=== PATIENT | female | born 1935 | race African-American/Black ===

== ENCOUNTER 2017-01-08 08:43 | Observation (INO) | payer MEDICARE ==
[2017-01-08] MEDS ORDERED: DEXTROSE 50%-WATER 50 ML DISP.SYRIN ONE (09:01)
--- NOTE | 2017-01-08 09:56 | CON.CARD ---
Consult Consult Specialty:: Cardiology - History of Present Illness Chief Complaint: confusion /falls History of Present Illness: 81-year-old female presents to the ED with her daughters for evaluation of a hypoglycemic episode. As per daughter she had went to check on her mother in the morning who appeared weak and not responding to basic verbal conversation so daughter decided to check her fingerstick which was noted to be 25. When EMS arrived patient received dextrose and immediately became more responsive and less lethargic. Daughter states similar episode approximately 9 months ago unknown etiology without adjustment of her medication. Patient with history of hypertension, diabetes, dyslipidemia, and GI bleed. Patient denies fever, chills , cough, recent change in weight, recent change in medications, recent illness, abdominal pain, diarrhea, dysuria, or headache. PMH ASHD s/p RAFITA Xience mLAD and dLAD 2010 dr. Monterroso CHF systolic 2010 DM 1989 EF 69% on ECHO October 2011 HTN Hyperlipidemia Negative MIBI stress test 2013, 2015 SLAT TWISTER/Stent of the right mid superficial femoral artery February 25, 2014 Dr. Monterroso - History Source History Provided By: Patient, Family Member - Alcohol/Substance Use Hx Alcohol Use: No - Smoking History Smoking history: Never smoked Have you smoked in the past 12 months: No Aproximately how many cigarettes per day: 0 Home Medications - Allergies Allergies/Adverse Reactions: Allergies Allergy/AdvReac Type Severity Reaction Status Date / Time No Known Allergies Allergy Verified 01/08/17 09:06 - Home Medications Home Medications: Ambulatory Orders Amlodipine Besylate [Norvasc -] 5 mg PO DAILY 04/29/13 Aspirin [ASA -] 81 mg PO DAILY 04/29/13 Clopidogrel Bisulfate [Plavix -] 75 mg PO DAILY 04/29/13 Enalapril Maleate [Vasotec -] 20 mg PO DAILY 04/29/13 Hydrochlorothiazide [Hctz -] 25 mg PO DAILY 04/29/13 Metoprolol Tartrate [Lopressor -] 50 mg PO BID 04/29/13 Simvastatin [Zocor -] 40 mg PO DAILY 04/29/13 Iron Polysaccharides [Niferex-150 -] 150 mg PO DAILY 06/05/16 Omeprazole 40 mg PO DAILY 06/05/16 Glimepiride [Amaryl -] 4 mg PO DAILY@0700 01/08/17 Insulin NPH Hum/Reg Insulin Hm [Humulin 70-30 Vial] 20 unit SQ DAILY 01/08/17 Review of Systems - Review of Systems Constitutional: reports: No Symptoms Eyes: reports: No Symptoms HENT: reports: No Symptoms Neck: reports: No Symptoms Cardiovascular: reports: No Symptoms Gastrointestinal: reports: No Symptoms Genitourinary: reports: No Symptoms Breasts: reports: No Symptoms Reported Musculoskeletal: reports: No Symptoms Integumentary: reports: No Symptoms Neurological: reports: Confusion Endocrine: reports: No Symptoms Hematology/Lymphatic: reports: No Symptoms Psychiatric: reports: No Symptoms Vital Signs: Vital Signs Temperature 98.4 F 01/08/17 08:43 Pulse Rate 91 H 01/08/17 08:43 Respiratory Rate 18 01/08/17 08:43 Blood Pressure 155/63 01/08/17 08:43 O2 Sat by Pulse Oximetry (%) 97 01/08/17 08:43 Constitutional: Yes: Well Nourished, No Distress, Calm Eyes: Yes: WNL, Conjunctiva Clear, EOM Intact HENT: Yes: WNL, Atraumatic, Normocephalic Neck: Yes: WNL, Supple, Trachea Midline Respiratory: Yes: WNL, Regular, CTA Bilaterally Gastrointestinal: Yes: WNL, Normal Bowel Sounds Renal/: Yes: WNL Cardiovascular: Yes: WNL, Regular Rate and Rhythm Musculoskeletal: Yes: WNL Extremities: Yes: WNL Integumentary: Yes: WNL Neurological: Yes: WNL, Alert, Oriented ...Motor Strength: WNL Psychiatric: Yes: WNL, Alert, Oriented - Other Data Labs, Other Data: Laboratory Tests 01/08/17 01/08/17 01/08/17 09:44 09:45 09:45 WBC 5.6 D RBC 3.75 Hgb 10.5 L Hct 31.6 L MCV 84.1 MCHC 33.2 RDW 16.0 H Plt Count 166 MPV 8.0 D Neutrophils % 68.4 Lymphocytes % 21.9 D Monocytes % 9.5 Eosinophils % 0.0 Basophils % 0.2 Sodium 140 Potassium 3.4 L Chloride 102 Carbon Dioxide 26 Anion Gap 12 BUN 37 H Creatinine 1.6 H Creat Clearance w eGFR 30.86 POC Glucometer 131.59045 Random Glucose 126 H D Calcium 9.3 Magnesium 2.0 Total Bilirubin 0.5 D AST 31 D ALT 15 Alkaline Phosphatase 78 Creatine Kinase 626 H D CK-MB (CK-2) 8.418 H Troponin I 0.02 Total Protein 7.1 Albumin 3.7 Urine Color Urine Appearance Urine pH Urine Protein Urine Glucose (UA) Urine Ketones Urine Blood Urine Nitrite Urine Bilirubin Urine Urobilinogen Ur Leukocyte Esterase Urine RBC Urine WBC Ur Epithelial Cells Hyaline Casts Urine Mucus 01/08/17 10:40 WBC RBC Hgb Hct MCV MCHC RDW Plt Count MPV Neutrophils % Lymphocytes % Monocytes % Eosinophils % Basophils % Sodium Potassium Chloride Carbon Dioxide Anion Gap BUN Creatinine Creat Clearance w eGFR POC Glucometer Random Glucose Calcium Magnesium Total Bilirubin AST ALT Alkaline Phosphatase Creatine Kinase CK-MB (CK-2) Troponin I Total Protein Albumin Urine Color Ltyellow Urine Appearance Clear Urine pH 5.0 Urine Protein Negative Urine Glucose (UA) Negative Urine Ketones Negative Urine Blood Negative Urine Nitrite Negative Urine Bilirubin Negative Urine Urobilinogen Negative Ur Leukocyte Esterase Trace H D Urine RBC 1 Urine WBC 3 Ur Epithelial Cells Moderate Hyaline Casts 1 Urine Mucus Rare Imaging - Results Chest X-ray: Image Reviewed (no i/e) EKG: Image Reviewed (sr apc) Assessment/Plan ASHD PAD DM HTN HLD hypoglycemia s/p fall from bed elevated ck ce neg plan ivf r/o infection cardiac knowles stable will f/u
[2017-01-08 10:01] LABS: BASOPHIL 0.2 % (0-2.0); MCH 27.9 pg (25.7-33.7); MCHC 33.2 g/dl (32.0-36.0); MEAN CELL VOLUME 84.1 fl (80-96); NEUTROPHILS 68.4 % (42.8-82.8); PLATELET COUNT 166 K/MM3 (134-434); WHITE BLOOD COUNT 5.6 K/mm3 (4.0-10.0)
[2017-01-08 10:21] LABS: ALBUMIN 3.7 g/dl (3.4-5.0); BILIRUBIN,TOTAL 0.5 mg/dL (0.2-1.0); CALCIUM 9.3 mg/dL (8.5-10.1); COCKROFT - GAULT 29.1125; CREATININE 1.6 mg/dL (0.55-1.02); TOT PROT 7.1 g/dl (6.4-8.2)
[2017-01-08 10:24] LABS: TROPONIN I 0.02 ng/ml (0.00-0.05)
--- NOTE | 2017-01-08 10:24 | PDOC ---
History of Present Illness - General Chief Complaint: Blood Sugar Problem Stated Complaint: LOW BLOOD SUGAR Time Seen by Provider: 01/08/17 09:13 History Source: Patient Exam Limitations: No Limitations - History of Present Illness Initial Comments: 01/08/17 10:18 81-year-old female presents to the ED with her daughters for evaluation of a hypoglycemic episode. As per daughter she had went to check on her mother in the morning who appeared weak and not responding to basic verbal conversation so daughter decided to check her fingerstick which was noted to be 25. When EMS arrived patient received dextrose and immediately became more responsive and less lethargic. Daughter states similar episode approximately 9 months ago unknown etiology without adjustment of her medication. Patient with history of hypertension, diabetes, dyslipidemia, and GI bleed. Patient denies fever, chills , cough, recent change in weight, recent change in medications, recent illness, abdominal pain, diarrhea, dysuria, or headache. 01/08/17 11:03 Timing/Duration: 1 hour Severity: moderate Associated Symptoms: reports: weakness Past History - Travel Traveled outside of the country in the last 30 days: No Close contact w/someone who was outside of country & ill: No - Past Medical History Allergies/Adverse Reactions: Allergies Allergy/AdvReac Type Severity Reaction Status Date / Time No Known Allergies Allergy Verified 01/08/17 09:06 Home Medications: Ambulatory Orders Amlodipine Besylate [Norvasc -] 5 mg PO DAILY 04/29/13 Aspirin [ASA -] 81 mg PO DAILY 04/29/13 Clopidogrel Bisulfate [Plavix -] 75 mg PO DAILY 04/29/13 Enalapril Maleate [Vasotec -] 20 mg PO DAILY 04/29/13 Hydrochlorothiazide [Hctz -] 25 mg PO DAILY 04/29/13 Metoprolol Tartrate [Lopressor -] 50 mg PO BID 04/29/13 Simvastatin [Zocor -] 40 mg PO DAILY 04/29/13 Iron Polysaccharides [Niferex-150 -] 150 mg PO DAILY 06/05/16 Omeprazole 40 mg PO DAILY 06/05/16 Glimepiride [Amaryl -] 4 mg PO DAILY@0700 01/08/17 Insulin NPH Hum/Reg Insulin Hm [Humulin 70-30 Vial] 20 unit SQ DAILY 01/08/17 Anemia: Yes Cardiac Disorders: Yes (CAD) Diabetes: Yes GI Disorders: Yes (GERD) HTN: Yes Hypercholesterolemia: Yes Liver Disease: Yes (HEPATIC CYST, COLON POLYP) - Surgical History Cardiac Surgery: Yes (2 STENT(1 TO HEART, 1 TO RT LEG)) - Psycho/Social/Smoking Cessation Hx Anxiety: No Suicidal Ideation: No Smoking Status: No Smoking History: Never smoked Have you smoked in the past 12 months: No Number of Cigarettes Smoked Daily: 0 Information on smoking cessation initiated: No Hx Alcohol Use: No Drug/Substance Use Hx: No Substance Use Type: None Patient Lives Alone: No Lives with/in: daughter Review of Systems - Review of Systems Able to Perform ROS?: Yes Constitutional: Yes: Weakness HEENTM: No: Symptoms Reported Respiratory: No: Symptoms reported Cardiac (ROS): No: Symptoms Reported ABD/GI: No: Symptoms Reported : No: Symptoms Reported Musculoskeletal: Yes: Muscle Weakness Integumentary: No: Symptoms Reported Neurological: No: Symptoms reported *Physical Exam - Vital Signs Last Vital Signs Temp Pulse Resp BP Pulse Ox 98.4 F 91 H 18 155/63 97 01/08/17 08:43 01/08/17 08:43 01/08/17 08:43 01/08/17 08:43 01/08/17 08:43 - Physical Exam General Appearance: Yes: Nourished, Appropriately Dressed. No: Apparent Distress HEENT: positive: EOMI, SABIHA, TMs Normal, Pharynx Normal. negative: Pale Conjunctivae Neck: positive: Supple Respiratory/Chest: positive: Lungs Clear, Normal Breath Sounds. negative: Respiratory Distress, Accessory Muscle Use Cardiovascular: positive: Regular Rhythm, Regular Rate. negative: Murmur Extremity: positive: Normal Capillary Refill Integumentary: positive: Normal Color, Warm, Moist Neurologic: positive: Motor Strength 5/5 (ambulatory) Heart Score/ECG Review - History History: Slightly suspicious - Electrocardiogram EKG: Normal - Age Age: >/= 65 - Risk Factors Risk Factors Heart Score: Yes Hx Hypercholesterolemia, Yes Hx Hypertension, Yes Hx Diabetes Based on the list above the patient has:: >/=3 risk factors or Hx atherosclerotic disease - Troponin Troponin: </= normal limit - Score Heart Score - Total: 4 - ECG Intrepretation Rhythm: PAC(s) (rate 81. With left bundle branch block. Unchanged from previous noted 04/2013) ED Treatment Course - LABORATORY CBC & Chemistry Diagram: 01/08/17 09:45 01/08/17 09:45 - ADDITIONAL ORDERS Additional order review: Laboratory Results 01/08/17 09:44 POC Glucometer 131.43072 01/08/17 01/08/17 09:45 09:44 RBC 3.75 MCV 84.1 MCHC 33.2 RDW 16.0 H MPV 8.0 D Neutrophils % 68.4 Lymphocytes % 21.9 D Monocytes % 9.5 Eosinophils % 0.0 Basophils % 0.2 POC Glucometer 131.56116 - RADIOLOGY Radiology Studies Ordered: Category Date Time Status HEAD CT WITHOUT CONTRAST [CT] Stat CT Scan 01/08/17 09:29 Ordered CHEST X-RAY PORTABLE* [RAD] Stat Radiology 01/08/17 09:14 Completed Medical Decision Making - Medical Decision Making 01/08/17 10:01 Patient with low BGM this morning and when EMS arrived they had given her dextrose which brought her glucose to 182. differential diagnosis include infection, electrolyte imbalance, ACS, and less likely intracranial pathology. Patient ordered for cardiac workup, repeat BGM, head CT, and urinalysis with urine culture. 01/08/17 11:20 Laboratory Tests 10/19/16 01/08/17 01/08/17 14:55 09:45 09:45 WBC 5.6 D Hgb 10.5 L Hct 31.6 L Plt Count 166 Neutrophils % 68.4 Sodium 140 Potassium 3.4 L Chloride 102 Carbon Dioxide 26 Anion Gap 12 BUN 37 H Creatinine 1.6 H D 1.6 H Random Glucose 126 H D Calcium 9.3 Magnesium 2.0 AST 31 D ALT 15 Creatine Kinase 626 H D CK-MB (CK-2) 8.418 H Urine Ketones Ur Leukocyte Esterase Urine WBC 01/08/17 10:40 WBC Hgb Hct Plt Count Neutrophils % Sodium Potassium Chloride Carbon Dioxide Anion Gap BUN Creatinine Random Glucose Calcium Magnesium AST ALT Creatine Kinase CK-MB (CK-2) Urine Ketones Negative Ur Leukocyte Esterase Trace H D Urine WBC [address] negative for acute findings except for a meningioma. Patient ordered for normal saline IV secondary to elevated CK . chest x-ray negative for acute findings. 01/08/17 13:[address] Moss who states will consult on the patient if patient is to be admitted. He also does not believe this is cardiac related as patient has no change in EKG with the chest pain or elevated troponin. Case has now been discussed with hospitalist POLO Saeed and will be admitted to [facility] observation. Patient and family made aware and agrees with plan. Patient will receive a repeat BGM after completion of normal saline fluids. *DC/Admit/Observation/Transfer Diagnosis at time of Disposition: Hypoglycemia, Elevated creatine kinase level - Discharge Dispostion Admit: Yes
[2017-01-08 10:51] LABS: URINE APPEARANCE CLEAR; URINE BILIRUBIN NEGATIVE (NEGATIVE); URINE BLOOD NEGATIVE (NEGATIVE); URINE COLOR LTYELLOW; URINE GLUCOSE (UA) NEGATIVE (NEGATIVE); URINE KETONE NEGATIVE (NEGATIVE); URINE LEUK ESTERASE TRACE (NEGATIVE); URINE NITRITE NEGATIVE (NEGATIVE); URINE PROTEIN NEGATIVE (NEGATIVE); URINE UROBILINOGEN NEGATIVE E.U./dl (0.2-1.0)
[2017-01-08 10:56] LABS: URINE HYALINE CAST 1 /lpf; URINE MUCUS RARE; URINE RBC 1 /hpf (0-3); URINE WBC 3 /hpf (3-5)
--- NOTE | 2017-01-08 10:57 | EKG ---
Test Reason : Blood Pressure : / mmHG Vent. Rate : 081 BPM Atrial Rate : 081 BPM P-R Int : 208 ms QRS Dur : 110 ms QT Int : 390 ms P-R-T Axes : 080 -22 013 degrees QTc Int : 453 ms SINUS RHYTHM WITH PREMATURE ATRIAL COMPLEXES INCOMPLETE LEFT BUNDLE BRANCH BLOCK BORDERLINE ECG WHEN COMPARED WITH ECG OF 29-APR-2013 21:22, PREMATURE ATRIAL COMPLEXES ARE NOW PRESENT T WAVE VARIATION Confirmed by CASEY GOLDBERG, BRADLEY ([id number]) on 01/08/2017 10:57:23 AM Referred By: Confirmed By:BRADLEY PEÑA MD
--- NOTE | 2017-01-08 11:17 | PDOC ---
*Physical Exam - Vital Signs Last Vital Signs Temp Pulse Resp BP Pulse Ox 98.4 F 91 H 18 155/63 97 01/08/17 08:43 01/08/17 08:43 01/08/17 08:43 01/08/17 08:43 01/08/17 08:43 ED Treatment Course - LABORATORY CBC & Chemistry Diagram: 01/08/17 09:45 01/08/17 09:45 - ADDITIONAL ORDERS Additional order review: Laboratory Results 01/08/17 01/08/17 01/08/17 10:40 09:45 09:44 Sodium 140 Potassium 3.4 L Chloride 102 Carbon Dioxide 26 Anion Gap 12 BUN 37 H Creatinine 1.6 H Creat Clearance w eGFR 30.86 POC Glucometer 131.24382 Random Glucose 126 H D Calcium 9.3 Magnesium 2.0 Total Bilirubin 0.5 D AST 31 D ALT 15 Alkaline Phosphatase 78 Creatine Kinase 626 H D CK-MB (CK-2) 8.418 H Troponin I 0.02 Total Protein 7.1 Albumin 3.7 Urine Color Ltyellow Urine Appearance Clear Urine pH 5.0 Urine Protein Negative Urine Glucose (UA) Negative Urine Ketones Negative Urine Blood Negative Urine Nitrite Negative Urine Bilirubin Negative Urine Urobilinogen Negative Ur Leukocyte Esterase Trace H D Urine RBC 1 Urine WBC 3 Ur Epithelial Cells Moderate Hyaline Casts 1 Urine Mucus Rare 01/08/17 01/08/17 09:45 09:44 RBC 3.75 MCV 84.1 MCHC 33.2 RDW 16.0 H MPV 8.0 D Neutrophils % 68.4 Lymphocytes % 21.9 D Monocytes % 9.5 Eosinophils % 0.0 Basophils % 0.2 POC Glucometer 131.41739 Medical Decision Making - Medical Decision Making 01/08/17 11:16 Patient seen and evaluated with the nurse practitioner. I agree with the overall evaluation, assessment, and management with the following summary of visit: 81-year-old female insulin-dependent diabetic presents with altered mental status in the setting of hypoglycemic episode. Symptoms improved after given dextrose prior to arrival. Metabolic/infectious workup, close monitoring, dispo accordingly
[2017-01-08] MEDS ORDERED: SODIUM CHLORIDE 1,000 ML IV STA (11:20)
--- NOTE | 2017-01-08 14:05 | HP ---
CHIEF COMPLAINT: brief episode of AMS PCP: Christin Morales [phone] HISTORY OF PRESENT ILLNESS: This is an 85yo woman with PMH HTN, IDDM, CAD with stent x2, HLD and GERD who presents with brief episode of staring into the distance while laying in bed. She was not responding to family during this time. FSBG noted to be 33mg/dl by family who activated EMS. The patient returned to baseline mental status s/p D50W infusing by EMS. She was changed from Januvia to Amaryl due to cost of Januvia during November on her last visit with PMD. ER course was notable for: (1) elevated CK-626 (2) Random glucose- 126 (3) AZRA Recent Travel: denies PAST MEDICAL HISTORY: HTN, IDDM, CAD with stent x2, HLD, GERD PAST SURGICAL HISTORY: denies Social History: Smoking: denies Alcohol: denies Drugs: denies Family History: Allergies No Known Allergies Allergy (Verified 01/08/17 09:06) HOME MEDICATIONS: Home Medications 3 Medication Instructions Recorded Amlodipine Besylate [Norvasc -] 5 mg PO DAILY 04/29/13 Aspirin [ASA -] 81 mg PO DAILY 04/29/13 Clopidogrel Bisulfate [Plavix -] 75 mg PO DAILY 04/29/13 Enalapril Maleate [Vasotec -] 20 mg PO DAILY 04/29/13 Hydrochlorothiazide [Hctz -] 25 mg PO DAILY 04/29/13 Metoprolol Tartrate [Lopressor -] 50 mg PO BID 04/29/13 Simvastatin [Zocor -] 40 mg PO DAILY 04/29/13 Iron Polysaccharides [Niferex-150 150 mg PO DAILY 06/05/16 -] Omeprazole 40 mg PO DAILY 06/05/16 Glimepiride [Amaryl -] 4 mg PO DAILY@0700 01/08/17 Insulin NPH Hum/Reg Insulin Hm 20 unit SQ DAILY 01/08/17 [Humulin 70-30 Vial] REVIEW OF SYSTEMS CONSTITUTIONAL: Present: generalized weakness Absent: fever, chills, diaphoresis, malaise, loss of appetite, weight change HEENT: Absent: rhinorrhea, nasal congestion, throat pain, throat swelling, difficulty swallowing, mouth swelling, ear pain, eye pain, visual changes CARDIOVASCULAR: Absent: chest pain, syncope, palpitations, irregular heart rate, lightheadedness , peripheral edema RESPIRATORY: Absent: cough, shortness of breath, dyspnea with exertion, orthopnea, wheezing, stridor, hemoptysis GASTROINTESTINAL: Absent: abdominal pain, abdominal distension, nausea, vomiting, diarrhea, constipation, melena, hematochezia GENITOURINARY: Absent: dysuria, frequency, urgency, hesitancy, hematuria, flank pain, genital pain MUSCULOSKELETAL: Absent: myalgia, arthralgia, joint swelling, back pain, neck pain SKIN: Absent: rash, itching, pallor HEMATOLOGIC/IMMUNOLOGIC: Absent: easy bleeding, easy bruising, lymphadenopathy, frequent infections ENDOCRINE: Absent: unexplained weight gain, unexplained weight loss, heat intolerance, cold intolerance NEUROLOGIC: Absent: headache, focal weakness or paresthesias, dizziness, unsteady gait, seizure, mental status changes, bladder or bowel incontinence PSYCHIATRIC: Absent: anxiety, depression, suicidal or homicidal ideation, hallucinations. PHYSICAL EXAMINATION Vital Signs - 24 hr 3 01/08/17 08:43 Temperature 98.4 F Pulse Rate 91 H Respiratory 18 Rate Blood Pressure 155/63 O2 Sat by Pulse 97 Oximetry (%) GENERAL: Awake, alert, and fully oriented, in no acute distress. HEAD: Normal with no signs of trauma. EYES: Pupils equal, round and reactive to light, extraocular movements intact, sclera anicteric, conjunctiva clear. No lid lag. EARS, NOSE, THROAT: Ears normal, nares patent, oropharynx clear without exudates. Moist mucous membranes. NECK: Normal range of motion, supple without lymphadenopathy, JVD, or masses. LUNGS: Breath sounds equal, clear to auscultation bilaterally. No wheezes, and no crackles. No accessory muscle use. HEART: Regular rate and rhythm, normal S1 and S2 without murmur, rub or gallop. ABDOMEN: Soft, nontender, not distended, normoactive bowel sounds, no guarding, no rebound, no masses. No hepatomegaly or splenomegaly. MUSCULOSKELETAL: Normal range of motion at all joints. No bony deformities or tenderness. No CVA tenderness. UPPER EXTREMITIES: 2+ pulses, warm, well-perfused. No cyanosis. No clubbing. No peripheral edema. LOWER EXTREMITIES: 2+ pulses, warm, well-perfused. No calf tenderness. No peripheral edema. NEUROLOGICAL: Cranial nerves II-XII intact. Normal speech. Normal gait. Deliberate responses to questioning. PSYCHIATRIC: Cooperative. Good eye contact. Appropriate mood and affect. SKIN: Warm, dry, normal turgor, no rashes or lesions noted, normal capillary refill. Laboratory Results - last 24 hr 3 01/08/17 01/08/17 01/08/17 09:44 09:45 09:45 WBC 5.6 D RBC 3.75 Hgb 10.5 L Hct 31.6 L MCV 84.1 MCHC 33.2 RDW 16.0 H Plt Count 166 MPV 8.0 D Neutrophils % 68.4 Lymphocytes % 21.9 D Monocytes % 9.5 Eosinophils % 0.0 Basophils % 0.2 Sodium 140 Potassium 3.4 L Chloride 102 Carbon Dioxide 26 Anion Gap 12 BUN 37 H Creatinine 1.6 H Creat Clearance w eGFR 30.86 POC Glucometer 131.99871 Random Glucose 126 H D Calcium 9.3 Magnesium 2.0 Total Bilirubin 0.5 D AST 31 D ALT 15 Alkaline Phosphatase 78 Creatine Kinase 626 H D CK-MB (CK-2) 8.418 H Troponin I 0.02 Total Protein 7.1 Albumin 3.7 Urine Color Urine Appearance Urine pH Urine Protein Urine Glucose (UA) Urine Ketones Urine Blood Urine Nitrite Urine Bilirubin Urine Urobilinogen Ur Leukocyte Esterase Urine RBC Urine WBC Ur Epithelial Cells Hyaline Casts Urine Mucus 3 01/08/17 10:40 WBC RBC Hgb Hct MCV MCHC RDW Plt Count MPV Neutrophils % Lymphocytes % Monocytes % Eosinophils % Basophils % Sodium Potassium Chloride Carbon Dioxide Anion Gap BUN Creatinine Creat Clearance w eGFR POC Glucometer Random Glucose Calcium Magnesium Total Bilirubin AST ALT Alkaline Phosphatase Creatine Kinase CK-MB (CK-2) Troponin I Total Protein Albumin Urine Color Ltyellow Urine Appearance Clear Urine pH 5.0 Urine Protein Negative Urine Glucose (UA) Negative Urine Ketones Negative Urine Blood Negative Urine Nitrite Negative Urine Bilirubin Negative Urine Urobilinogen Negative Ur Leukocyte Esterase Trace H D Urine RBC 1 Urine WBC 3 Ur Epithelial Cells Moderate Hyaline Casts [address] head as read by Dr. Hernandez: 7mm calcified meningioma in right frontal lobe. Otherwise normal scan. ASSESSMENT/PLAN: A: Brief episode of AMS in setting of hypoglycemia. AMS resolved with administration of D50W by EMS. AMS less likely from meningioma given absence of focal deficits. Less likely UTI as WBC wnl and afebrile. P: 1. AMS- hypoglycemia vs UTI vs meningioma - FSBG qACHS - hold glimeperide 4mg and 70/30 units - ISS - urine cx - hold abx as WBC wnl and afebrile 2. AZRA - NS@75 with low volume boluses PRN - trend Cr and CPK - hold ACEi 3. DM - FSBG qACHS - hold glimeperide 4mg and 70/30 20 units - ISS - A1c 4. HTN - hold ACEi given AZRA - Home metoprolol 50mg BID - Home Norvasc 5mg daily increase to 10mg PRN - Home HCTZ 25mg daily 5. CAD - Home ASA 81mg - Home Plavix 75mg 6. Chronic anemia - Well controlled - home Fe polysaccharides 150mg 7. GERD - Home omeprazole 8. F/E/N - NS@75 - Low Na+ diabetic diet - replete PRN 9. PPX - home PPI - OOB Dispo- requires observation of acute medical condition Code Status: FULL CODE Visit type - Emergency Visit Emergency Visit: Yes ED Registration Date: 01/08/17 Care time: The patient presented to the Emergency Department on the above date and was hospitalized for further evaluation of their emergent condition. - New Patient This patient is new to me today: Yes Date on this admission: 01/09/17 - Critical Care Critical Care patient: No
[2017-01-08] MEDS: INSULIN SLIDING SCALE (NOVOLOG) 1 VIAL SQ SCH ×2 (18:57→22:43)
[2017-01-08] MEDS ORDERED: INSULIN (NOVOLOG) ASPART 100 UNITS/ML 10ML VIAL ONE (20:04)
[2017-01-08] MEDS: METOPROLOL TARTRATE 50 MG TABLET (FP) PO SCH (22:43)
[2017-01-08 23:27] VITALS: BMI 32.7
[2017-01-09] MEDS: INSULIN SLIDING SCALE (NOVOLOG) 1 VIAL SQ SCH ×3 (06:24→16:31)
[2017-01-09 07:54] LABS: BASOPHIL 0.5 % (0-2.0); MCHC 33.4 g/dl (32.0-36.0); MEAN CELL VOLUME 83.8 fl (80-96); MEAN PLT VOLUME 8.4 fl (7.5-11.1); NEUTROPHILS 52.1 % (42.8-82.8); PLATELET COUNT 160 K/MM3 (134-434); RDW 16.1 % (11.6-15.6); WHITE BLOOD COUNT 4.4 K/mm3 (4.0-10.0)
[2017-01-09 08:52] LABS: CALCIUM 9.3 mg/dL (8.5-10.1); COCKROFT - GAULT 50.507; CREATININE 1.1 mg/dL (0.55-1.02)
[2017-01-09] MEDS ORDERED: HYDROCHLOROTHIAZIDE 25 MG TABLET (FP) PO SCH (10:00)
[2017-01-09] MEDS ORDERED: CLOPIDOGREL BISULFATE 75 MG TABLET (FP) PO SCH (10:00)
[2017-01-09] MEDS ORDERED: PANTOPRAZOLE 40 MG TABLET (FP) PO SCH (10:00)
[2017-01-09] MEDS ORDERED: ATORVASTATIN CA 20 MG TABLET (FP) PO SCH (10:00)
[2017-01-09] MEDS ORDERED: ASPIRIN 81 MG CHEWABLE TABLETS PO SCH (10:00)
[2017-01-09] MEDS ORDERED: amLODIPine BESYLATE 5 MG TABLET (FP) PO SCH (10:00)
[2017-01-09] MEDS ORDERED: IRON POLYSACCHARIDES 150 MG CAPSULE PO SCH (10:00)
--- NOTE | 2017-01-09 11:04 | PN ---
Progress Note, Physician History of Present Illness: 81-year-old female presents to the ED with her daughters for evaluation of a hypoglycemic episode. As per daughter she had went to check on her mother in the morning who appeared weak and not responding to basic verbal conversation so daughter decided to check her fingerstick which was noted to be 25. When EMS arrived patient received dextrose and immediately became more responsive and less lethargic. Daughter states similar episode approximately 9 months ago unknown etiology without adjustment of her medication. Patient with history of hypertension, diabetes, dyslipidemia, and GI bleed. Patient denies fever, chills , cough, recent change in weight, recent change in medications, recent illness, abdominal pain, diarrhea, dysuria, or headache. PMH ASHD s/p RAFITA Xience mLAD and dLAD 2010 dr. Monterroso CHF systolic 2010 DM 1989 EF 69% on ECHO October 2011 HTN Hyperlipidemia Negative MIBI stress test 2013, 2015 NURSE CHEMICAL DEPENDENCY/Stent of the right mid superficial femoral artery February 25, 2014 Dr. Monterroso - Current Medication List Current Medications: Active Medications Amlodipine Besylate (Norvasc -) 5 mg PO DAILY [facility] Aspirin (Asa -) 81 mg PO DAILY [facility] Atorvastatin Calcium (Lipitor -) 20 mg PO HS [facility] Clopidogrel Bisulfate (Plavix -) 75 mg PO DAILY [facility] Hydrochlorothiazide (Hctz -) 25 mg PO DAILY [facility] Insulin Aspart (Novolog Vial Sliding Scale -) 1 vial SQ ACHS [facility] PRN Reason: Protocol Last Admin: 01/09/17 06:24 Dose: Not Given Metoprolol Tartrate (Lopressor -) 50 mg PO BID [facility] Last Admin: 01/08/17 22:43 Dose: 50 mg Pantoprazole Sodium (Protonix -) 40 mg PO DAILY [facility] Polysaccharide Iron Complex (Niferex-150 -) 150 mg PO DAILY [facility] - Objective Vital Signs: Vital Signs Temperature 98.3 F 01/09/17 06:00 Pulse Rate 61 01/09/17 06:00 Respiratory Rate 20 01/09/17 06:00 Blood Pressure 119/54 01/09/17 06:00 O2 Sat by Pulse Oximetry (%) 98 01/08/17 22:00 Eyes: Yes: WNL, Conjunctiva Clear, EOM Intact HENT: Yes: WNL, Atraumatic, Normocephalic Neck: Yes: WNL, Supple, Trachea Midline Cardiovascular: Yes: WNL, Regular Rate and Rhythm Respiratory: Yes: WNL, Regular, CTA Bilaterally Gastrointestinal: Yes: WNL, Normal Bowel Sounds Genitourinary: Yes: WNL Musculoskeletal: Yes: WNL Extremities: Yes: WNL Edema: No Integumentary: Yes: WNL Neurological: Yes: WNL, Alert, Oriented ...Motor Strength: WNL Psychiatric: Yes: WNL Labs: CBC, BMP 01/09/17 06:35 01/09/17 06:35 Assessment/Plan ASHD PAD DM HTN HLD hypoglycemia s/p fall from bed elevated ck ce neg plan ivf r/o infection cardiac knowles stable will f/u
[2017-01-09] MEDS: METOPROLOL TARTRATE 50 MG TABLET (FP) PO SCH (11:09)
[2017-01-09 13:55] VITALS: BP 136/64; PULSE 74; TEMP 97.8
--- NOTE | 2017-01-09 16:26 | PN ---
Teaching Attending Note Name of Resident: Jc Loya ATTENDING PHYSICIAN STATEMENT I saw and evaluated the patient. I reviewed the resident's note and discussed the case with the resident. I agree with the resident's findings and plan as documented. SUBJECTIVE:" my legs are giving out" denies other complaints has full recollection of yesterdays events OBJECTIVE: Vital Signs Temperature 97.8 F 01/09/17 13:54 Pulse Rate 74 01/09/17 13:54 Respiratory Rate 18 01/09/17 13:54 Blood Pressure 136/64 01/09/17 13:54 O2 Sat by Pulse Oximetry (%) 99 01/09/17 10:00 CBC, BMP 01/09/17 06:35 Eyes: Yes: WNL, Conjunctiva Clear, EOM Intact HENT: Yes: WNL, Atraumatic, Normocephalic Neck: Yes: WNL, Supple, Trachea Midline Cardiovascular: Yes: WNL, Regular Rate and Rhythm Respiratory: Yes: WNL, Regular, CTA Bilaterally Gastrointestinal: Yes: WNL, Normal Bowel Sounds Genitourinary: Yes: WNL Musculoskeletal: Yes: WNL Extremities: Yes: WNL Edema: No 01/09/17 06:35 BGM Schedule Start: 01/08/17 14:09 Freq: ACHS Status: Active Activity Type Activity Date Activity User Co-Sign Detail Recorded Client Recorded Date Recorded By Document 01/08/17 18:30 [email or web address] [email or web address] 01/08/17 18:55 JLEARO Document 01/08/17 22:00 KISHAMBLU [id number] 01/08/17 23:45 JEMBLU Document 01/09/17 06:36 JEMBLU [id number] 01/09/17 06:36 JEMBLU Document 01/09/17 11:00 YTUCJA [email or web address] 01/09/17 11:52 YTUCJA BG 128 ASSESSMENT AND PLAN: Hypoglycemia - resolved - likely secondary to Insulin and non compliance with BG measurement. Had decreased PO intake last 2 days . * counselled patient and her daughter on the phone * advised to monitor BG at least twice a day * discontinue oral hypoglycemics * follow up with PMD within next 5-6 days Fall - no syncope ,positive history of b/l knee arthritis, evaluated by cardiology per EDP request and appers to be stable from cardiac perspective * outpatient follow up with PMD and possible referral to PT D/C home
--- NOTE | 2017-01-09 16:31 | DS ---
Physical Exam: SUBJECTIVE: Patient seen and examined at bedside. No overnight events. No new complaints. Tolerating diet. Denies CP,JEAN, SOB, palpitations, Abd. pain, N/V. OBJECTIVE: Vital Signs Period Temp Pulse Resp BP Sys/Erazo Pulse Ox Last 24 Hr 97.7 F-98.4 F 61-87 16-20 119-137/54-70 98-100 PHYSICAL EXAM GENERAL: AAOx3, NAD HEAD: NC/AT EYES: PERRL, EOMI, sclera anicteric, conjunctiva clear. ENT: moist mucous membranes. NECK: supple, no jvd LUNGS: CTAB, no wheezing or rales HEART: RRR, no M/G/R ABDOMEN: Soft, NT, ND, BS(+) EXTREMITIES: 2+ pulses, warm, well-perfused, no edema. NEUROLOGICAL: Normal speech, gait not observed. LABS Laboratory Results - last 24 hr 01/08/17 01/08/17 01/09/17 18:46 22:40 06:20 WBC RBC Hgb Hct MCV MCHC RDW Plt Count MPV Neutrophils % Lymphocytes % Monocytes % Eosinophils % Basophils % Sodium Potassium Chloride Carbon Dioxide Anion Gap BUN Creatinine POC Glucometer 214.13110 255 78 Random Glucose Calcium 01/09/17 01/09/17 01/09/17 06:35 06:35 11:13 WBC 4.4 RBC 3.68 Hgb 10.3 L Hct 30.8 L MCV 83.8 MCHC 33.4 RDW 16.1 H Plt Count 160 MPV 8.4 Neutrophils % 52.1 D Lymphocytes % 35.6 D Monocytes % 11.8 H Eosinophils % 0.0 Basophils % 0.5 Sodium 140 Potassium 4.0 Chloride 103 Carbon Dioxide 26 Anion Gap 11 BUN 26 H D Creatinine 1.1 H D POC Glucometer 294 Random Glucose 97 D Calcium 9.3 01/09/17 14:42 WBC RBC Hgb Hct MCV MCHC RDW Plt Count MPV Neutrophils % Lymphocytes % Monocytes % Eosinophils % Basophils % Sodium Potassium Chloride Carbon Dioxide Anion Gap BUN Creatinine POC Glucometer 229 Random Glucose Calcium HOSPITAL COURSE: This is an 85yo woman with PMH HTN, IDDM, CAD with stent x2, HLD and GERD placed on observation due to hypoglycemic episode and AZRA. Oral meds held as well as insulin. Blood glucose monitoring was done ACHS. Infection was ruled out , UA(-), CXR (No acute path), afebrile and no leukocytosis. Her glucose improved and no further hypoglycemic episodes noted. Will make adjustments to her home meds by reducing insulin by 5 units and stopping glimeperide. She was found to be in AZRA that was corrected with volume resuscitation and held RADHA. She was seen by cardiology and stable from cardiac standpoint no acute process. SHe will resume home meds except for glimeperide and insulin reduced to 15 units daily. Her mental status has returned to baseline. Instructed to follow up with primary doctor in one week and keep a journal of daily sugars to bring with her. She is stable for discharge. Date of Admission:01/08/17 Date of Discharge: 01/09/17 Minutes to complete discharge: 32 Discharge Summary Reason For Visit: HYPOGLYCEMIA Current Active Problems AZRA (acute kidney injury) (Acute) Hypoglycemia (Acute) Chronic anemia (Chronic) DM type 2 (diabetes mellitus, type 2) (Chronic) GERD (gastroesophageal reflux disease) (Chronic) HTN (hypertension) (Chronic) Condition: Improved - Instructions Diet, Activity, Other Instructions: -Please follow up with your primary doctor in one week. -Your insulin has been lowered by 5 units. Please make this adjustment.You will now take 15 units daily. -Keep a detailed log of your sugars to bring with you to your appointment with PCP. -make sure you eat . -Continue diabetic/low salt diet -resume all other home meds as directed. -Increase activity as tolerated. Referrals: Tj Moarles [Primary Care Provider] - Disposition: HOME - Home Medications Comprehensive Discharge Medication List: Ambulatory Orders Amlodipine Besylate [Norvasc -] 5 mg PO DAILY 04/29/13 Aspirin [ASA -] 81 mg PO DAILY 04/29/13 Clopidogrel Bisulfate [Plavix -] 75 mg PO DAILY 04/29/13 Enalapril Maleate [Vasotec -] 20 mg PO DAILY 04/29/13 Hydrochlorothiazide [Hctz -] 25 mg PO DAILY 04/29/13 Metoprolol Tartrate [Lopressor -] 50 mg PO BID 04/29/13 Simvastatin [Zocor -] 40 mg PO DAILY 04/29/13 Iron Polysaccharides [Niferex-150 -] 150 mg PO DAILY 06/05/16 Omeprazole 40 mg PO DAILY 06/05/16 Glimepiride [Amaryl -] 4 mg PO DAILY@0700 01/08/17 Insulin NPH Hum/Reg Insulin Hm [Humulin 70-30 Vial] 15 unit SQ DAILY #0 vial This patient is new to me today: Yes Date on this admission: 01/09/17 Emergency Visit: Yes ED Registration Date: 01/08/17 Care time: The patient presented to the Emergency Department on the above date and was hospitalized for further evaluation of their emergent condition. Critical Care patient: No - Discharge Referral Referred to [facility] No
== END 2017-01-09 16:58 | disposition home or self-care (01) ==
LOC: JER 08:43 → JERBED 13:32 → J5S 19:10
PROVIDERS: ADMIT Internal Medicine; ATTEND Internal Medicine
PROC: 3E0337Z Introduction of Electrolytic and Water Balance Substance into Peripheral Vein, Percutaneous Approach (ICD-10-PCS; principal; 2017-01-08)
PROC: 3E013VG Introduction of Insulin into Subcutaneous Tissue, Percutaneous Approach (ICD-10-PCS; 2017-01-08)
DX: E11.649 Type 2 diabetes mellitus with hypoglycemia without coma (principal); Z79.4 Long term (current) use of insulin; I25.10 Atherosclerotic heart disease of native coronary artery without angina pectoris; I10 Essential (primary) hypertension; D64.9 Anemia, unspecified; K21.9 Gastro-esophageal reflux disease without esophagitis; Z79.82 Long term (current) use of aspirin; Z95.5 Presence of coronary angioplasty implant and graft; R79.89 Other specified abnormal findings of blood chemistry; I50.20 Unspecified systolic (congestive) heart failure; E78.5 Hyperlipidemia, unspecified; N17.9 Acute kidney failure, unspecified
CPT/HCPCS: 36415; 70450-TC; 71010-TC; 80048; 80053; 81003; 81015; 82550; 82553; 83735; 84484; 85025; 87086; 93005; 93010; 99285-25; G0378

== ENCOUNTER 2017-03-19 06:44 | Day surgery (SDC) | payer MEDICARE ==
[2017-03-15 13:18] VITALS: BMI 30.5
[~2017-03-19 06:44] MED LIST: TOBRAMYCIN/DEXAMETHASONE OPHTH. OINTMENT 1 TUBE OD ONE
[2017-03-19] MEDS: MOXIFLOXACIN HCL 0.5% OPHTHALMIC 3 ML BOTTLE OP SCH ×2 (07:10→07:24)
[2017-03-19] MEDS: TROPICAMIDE 1% OPHTH SOLN 15 ML BOTTLE OP SCH ×2 (07:10→07:24)
[2017-03-19] MEDS: PHENYLEPHRINE 2.5% OPHTH SOLN 15 ML BOTTLE OP SCH ×2 (07:10→07:24)
[2017-03-19] MEDS: CYCLOPENTOLATE HCL 1% OPHTH SOLN 2 ML BOTTLE OP SCH ×2 (07:10→07:24)
[2017-03-19] MEDS ORDERED: MOXIFLOXACIN HCL 0.5% OPHTHALMIC 3 ML BOTTLE ONE (07:12)
[2017-03-19] MEDS ORDERED: PHENYLEPHRINE 2.5% OPHTH SOLN 15 ML BOTTLE ONE (07:12)
[2017-03-19] MEDS ORDERED: CYCLOPENTOLATE HCL 1% OPHTH SOLN 2 ML BOTTLE ONE (07:12)
[2017-03-19] MEDS ORDERED: TROPICAMIDE 1% OPHTH SOLN 15 ML BOTTLE ONE (07:12)
[2017-03-19] MEDS ORDERED: EPINEPHrine/PF 1 MG/1 ML (1:1,000) AMPULE ONE (07:33)
[2017-03-19] MEDS ORDERED: BUPIVACAINE HCL/PF 0.75% 10 ML VIAL ONE (07:33)
[2017-03-19] MEDS ORDERED: TOBRAMYCIN/DEXAMETHASONE OPHTH. OINTMENT 1 TUBE ONE (07:33)
[2017-03-19] MEDS ORDERED: LIDOCAINE HCL/PF 2% SDV 5ML VIAL ONE ×2 (07:33→07:46)
[2017-03-19] MEDS ORDERED: POVIDONE-IODINE 5% OPHTHALMIC PREP 30 ML SOLUTION ONE (07:34)
[2017-03-19] MEDS ORDERED: LIDOCAINE HCL/PF 1% SDV 5ML VIAL ONE (07:34)
[2017-03-19] MEDS ORDERED: PROPOFOL 20 ML ONE (07:43)
[2017-03-19] MEDS ORDERED: TETRACAINE 0.5% OPHTH SOLN 2 ML BOTTLE OD ONE (07:55)
[2017-03-19] MEDS ORDERED: LIDOCAINE HCL/PF 2% SDV 5ML VIAL INF ONE (08:03)
[2017-03-19] MEDS ORDERED: BUPIVACAINE HCL/PF 0.75% 10 ML VIAL RB ONE (08:03)
[2017-03-19] MEDS ORDERED: POVIDONE-IODINE 5% OPHTHALMIC PREP 30 ML SOLUTION OD ONE (08:06)
[2017-03-19] MEDS ORDERED: LIDOCAINE HCL 1% PRESERVATIVE FREE - 30ML VIAL IO ONE (08:15)
[2017-03-19] MEDS ORDERED: CHONDROITIN SU A/HYALUR SOD 1 KIT IO ONE (08:15)
[2017-03-19] MEDS ORDERED: BSS (NA/CA/MG/K) BALANCED SALT SOLUTION OPHTH SOLN 15 ML BOTTLE OD ONE (08:15)
[2017-03-19] MEDS ORDERED: EPINEPHrine/PF 1 MG/1 ML (1:1,000) AMPULE SQ ONE (08:20)
[2017-03-19] MEDS ORDERED: TOBRAMYCIN/DEXAMETHASONE OPHTH. OINTMENT 1 TUBE OD ONE (08:34)
--- NOTE | 2017-03-19 08:43 | HP ---
History & Physical Update - History History: No Change - Physical Physical: No Change - Assessment Assessment: No Change - Plan Plan: No Change
[2017-03-19 10:55] VITALS: PULSE 70
[2017-03-19 10:58] VITALS: BP 128/70; TEMP 97.8
--- NOTE | 2017-03-19 17:01 | OP ---
DATE OF OPERATION: 03/19/2017 SURGEON: Efra Desouza MD PREOPERATIVE DIAGNOSIS: Cataract, right eye. OPERATION: Phacoemulsification and intraocular lens implantation, right eye. POSTOPERATIVE DIAGNOSIS: Cataract, right eye. ANESTHESIA: Local with intravenous sedation. COMPLICATIONS: None. BLOOD LOSS: None. SPECIMEN: None. BRIEF HISTORY: The patient is an 81-year-old woman with a past medical history of diabetes, who presented with decreased vision in the right eye down to 20/50 due to a 2+ nuclear sclerotic lens with vacuoles. After the risks, benefits, and alternatives to cataract surgery were discussed with the patient, she consented to surgery for the right eye. DESCRIPTION OF PROCEDURE: The patient was brought to the operating room and administered a retrobulbar block after receiving intravenous sedation. She was then prepped and draped in the usual sterile fashion. An eyelid speculum was inserted in the right eye. A paracentesis was made, and the anterior chamber was inflated with nonpreserved lidocaine. This was followed by injection of Viscoat. A groove was made in the temporal clear cornea which was tunneled forward with a crescent blade. The anterior chamber was entered with a 2.75 keratome. The cystotome was used to make an incision in the center of the capsule, and a continuous curvilinear capsulorrhexis was created. The lens was hydrodissected until it was found to rotate freely within the capsular bag. Phacoemulsification was then used to remove the lens in its entirety. Irrigation and aspiration were used to remove residual cortical material. The anterior chamber and capsular bag were re-inflated with Provisc, and a 22.0-diopter SN60WF AcrySof intraocular lens was injected into the capsular bag using the [place] injector. The lens was dialed into place using a [place] hook. Irrigation and aspiration were used to remove residual Viscoelastic. The wound was stromally hydrated until it was found to be watertight and the eye was at an appropriate pressure. The eyelid speculum was removed from the eye, and TobraDex ointment and a patch and shield were placed over the right eye. The patient was transferred to the recovery room in stable condition and will follow up tomorrow. Antonina BLOUNT/[id number] MTDD
== END 2017-03-19 09:45 | disposition home or self-care (01) ==
LOC: JASU-SURG 06:44
PROVIDERS: ATTEND Ophthalmology
PROC: 08RJ3JZ Replacement of Right Lens with Synthetic Substitute, Percutaneous Approach (ICD-10-PCS; principal; 2017-03-19 08:00)
DX: H25.11 Age-related nuclear cataract, right eye (principal)

== ENCOUNTER 2018-01-11 05:22 | Emergency (ER) | payer MEDICARE ==
--- NOTE | 2018-01-11 05:37 | PDOC ---
History of Present Illness - General Chief Complaint: Blood Sugar Problem Stated Complaint: LOW BLOOD SUGAR Time Seen by Provider: 01/11/18 05:37 Past History - Past Medical History Allergies/Adverse Reactions: Allergies Allergy/AdvReac Type Severity Reaction Status Date / Time No Known Allergies Allergy Verified 03/15/17 13:03 Home Medications: Ambulatory Orders Amlodipine Besylate [Norvasc -] 5 mg PO DAILY 04/29/13 Aspirin [ASA -] 81 mg PO DAILY 04/29/13 Clopidogrel Bisulfate [Plavix -] 75 mg PO DAILY 04/29/13 Enalapril Maleate [Vasotec -] 20 mg PO DAILY 04/29/13 Hydrochlorothiazide [Hctz -] 25 mg PO DAILY 04/29/13 Metoprolol Tartrate [Lopressor -] 50 mg PO BID 04/29/13 Simvastatin [Zocor -] 40 mg PO DAILY 04/29/13 Iron Polysaccharides [Niferex-150 -] 150 mg PO DAILY 06/05/16 Omeprazole 40 mg PO DAILY 06/05/16 Folic Acid - 1 mg PO DAILY 03/15/17 Glimepiride [Amaryl -] 4 mg PO DAILY 03/15/17 Anemia: Yes Asthma: No Cancer: No Cardiac Disorders: Yes (CAD) CVA: No COPD: No CHF: No Dementia: No Diabetes: Yes GI Disorders: Yes (GERD) Disorders: No HTN: Yes Hypercholesterolemia: Yes Liver Disease: Yes (HEPATIC CYST, COLON POLYP) Seizures: No Thyroid Disease: No - Surgical History Cardiac Surgery: Yes (2 STENT(1 TO HEART, 1 TO RT LEG)) - Suicide/Smoking/Psychosocial Hx Smoking Status: No Smoking History: Never smoked Have you smoked in the past 12 months: No Number of Cigarettes Smoked Daily: 0 Hx Alcohol Use: No Drug/Substance Use Hx: No Substance Use Type: None *DC/Admit/Observation/Transfer - Discharge Dispostion Condition at time of disposition: Fair - Referrals - Patient Instructions - Post Discharge Activity
--- NOTE | 2018-01-11 05:39 | PDOC ---
History of Present Illness - General Chief Complaint: Blood Sugar Problem Stated Complaint: LOW BLOOD SUGAR Time Seen by Provider: 01/11/18 05:37 - History of Present Illness Initial Comments: 01/11/18 05:39 82yo woman with PMH HTN, IDDM, CAD with stent x2, HLD and GERD was BIBEMS after her daughter found her unresponsive in bed. When EMS arrived, her sugar was 51. EMS gave her D10 and she immediately awoke and became alert. EMS also mentioned "PVCs" on their rhythm strip. Patient states that she does not remember what happened and does not remember whether she took her dose of insulin last night. Denies any chest pain, SOB, nausea, vomiting, diarrhea, fevers, or chills. Allergies: none Smoking: none Alcohol: none Past History - Past Medical History Allergies/Adverse Reactions: Allergies Allergy/AdvReac Type Severity Reaction Status Date / Time No Known Allergies Allergy Verified 01/11/18 05:41 Home Medications: Ambulatory Orders Amlodipine Besylate [Norvasc -] 5 mg PO DAILY 04/29/13 Aspirin [ASA -] 81 mg PO DAILY 04/29/13 Clopidogrel Bisulfate [Plavix -] 75 mg PO DAILY 04/29/13 Enalapril Maleate [Vasotec -] 20 mg PO DAILY 04/29/13 Metoprolol Tartrate [Lopressor -] 50 mg PO BID 04/29/13 Simvastatin [Zocor -] 40 mg PO DAILY 04/29/13 Iron Polysaccharides [Niferex-150 -] 150 mg PO DAILY 06/05/16 Omeprazole 40 mg PO DAILY 06/05/16 Folic Acid - 1 mg PO DAILY 03/15/17 Glimepiride [Amaryl -] 4 mg PO DAILY 03/15/17 Anemia: Yes Asthma: No Cancer: No Cardiac Disorders: Yes (CAD) CVA: No COPD: No CHF: No Dementia: No Diabetes: Yes GI Disorders: Yes (GERD) Disorders: No HTN: Yes Hypercholesterolemia: Yes Liver Disease: Yes (HEPATIC CYST, COLON POLYP) Seizures: No Thyroid Disease: No - Surgical History Cardiac Surgery: Yes (2 STENT(1 TO HEART, 1 TO RT LEG)) - Suicide/Smoking/Psychosocial Hx Smoking Status: No Smoking History: Never smoked Have you smoked in the past 12 months: No Number of Cigarettes Smoked Daily: 0 Hx Alcohol Use: No Drug/Substance Use Hx: No Substance Use Type: None Review of Systems - Review of Systems Constitutional: No: Diaphoresis, Fever, Weakness Respiratory: No: Cough, Shortness of Breath Cardiac (ROS): No: Chest Pain, Irregular Heart Rate ABD/GI: No: Diarrhea, Nausea, Vomiting *Physical Exam - Physical Exam Comments: 01/11/18 05:42 GENERAL: A&Ox3, no acute distress, flat affect EYES: PERRLA, EOMI ENT: Moist mucus membranes NECK: No JVD LUNGS: CTA, no wheezes HEART: RRR, systolic murmur appreciated on exam ABDOMEN: Soft, nontender, BS present MUSCULOSKELETAL: No CVA Tenderness EXTREMITIES: 2+ pulses, no edema. NEUROLOGICAL: Cranial nerves II-XII intact. ED Treatment Course - LABORATORY CBC & Chemistry Diagram: 01/11/18 06:00 01/11/18 06:00 Medical Decision Making - Medical Decision Making 01/11/18 05:53 82yo woman with PMH HTN, IDDM, CAD with stent x2, HLD and GERD brought by ambulance after being found unresponsive and hypoglycemic -cbc, cmp, EKG, UA -fingerstick glucose 130 -EKG unchanged from prior 01/11/18 06:28 -will wait for chemistry -evaluate after feeding *DC/Admit/Observation/Transfer Diagnosis at time of Disposition: Hypoglycemia - Discharge Dispostion Disposition: HOME Condition at time of disposition: Stable - Referrals Referrals: Tj Morales [Primary Care Provider] - - Patient Instructions Printed Discharge Instructions: DI for Hyperglycemia -- Adult Additional Instructions: You were seen in the ER for low blood sugar. We did lab work on your blood and urine, and there were no new concerning findings. We talked about the results of these studies with you and made sure you know to eat a regular diet at home to keep your blood sugar normal. After our assessment, we do not believe you are having a medical emergency at this time, and we believe you are safe to go home. Please continue taking your normal diabetic medications. Please follow up with your regular doctor in 1-3 days. Call their clinic [facility], tell them you were seen in the ER, and tell them you need an appointment. Please come back to the ER at any time, 24 hours a day, for any new or worsening symptoms, especially for loss of consciousness, dizziness, palpitations, chest pain, headache, or other symptoms. If you are having severe or life threatening symptoms, or symptoms that make it unsafe to drive or have someone drive you, please call 911. - Post Discharge Activity
[2018-01-11 05:42] VITALS: TEMP 97.7; BMI 30.9
--- NOTE | 2018-01-11 05:56 | PDOC ---
Attending Attestation - Resident Resident Name: MaureenДмитрий - ED Attending Attestation I have performed the following: I have examined & evaluated the patient, The case was reviewed & discussed with the resident, I agree w/resident's findings & plan, Exceptions are as noted - HPI HPI: 01/11/18 05:54 Ms Rosenthal is an 82 yo F w/ h/o HTN, IDDM, CAD with stent x2, HLD and GERD was BIBEMS after her daughter found her unresponsive in bed. Daughter happened to be in bed with her and noted that she was heavily snoring She was unable to rouse her EMS contacted, blood glucose noted to be low Pt given Dextrose with improvement in mental status She did not take insulin last night. Decreased appetite, had only a small piece of chicken and watermelon last night 01/11/18 06:43 - Physicial Exam PE: 01/11/18 05:56 GENERAL: A&Ox3, no acute distress, flat affect EYES: PERRLA, EOMI ENT: Moist mucus membranes NECK: No JVD LUNGS: CTA, no wheezes HEART: RRR, systolic murmur appreciated on exam ABDOMEN: Soft, nontender, BS present MUSCULOSKELETAL: No CVA Tenderness EXTREMITIES: 2+ pulses, no edema. NEUROLOGICAL: Cranial nerves II-XII intact. - Medical Decision Making 01/11/18 05:56 81 yo F presenting to the ER due to hypoglycemia ? Related to insulin dose yesterday night ? Related to decreased po intake yesterday will do: labs EKG feed Monitor finger stick 01/11/18 06:44 EKG: Sinus rhythm, rate of 84 bpm, axis is normal, intervals are abnormal, with a CA interval of 214 ms, QRS normal, QTc normal, no ST elevations, T-wave flattening in V3 through V6, LVH
[2018-01-11 06:20] LABS: HEMATOCRIT 33.7 % (32.4-45.2); HEMOGLOBIN 11.2 GM/dL (10.7-15.3); MCH 28.1 pg (25.7-33.7); MCHC 33.4 g/dl (32.0-36.0); MEAN CELL VOLUME 84.2 fl (80-96); MEAN PLT VOLUME 8.5 fl (7.5-11.1); PLATELET COUNT 165 K/MM3 (134-434); RDW 15.4 % (11.6-15.6); WHITE BLOOD COUNT 4.2 K/mm3 (4.0-10.0)
[2018-01-11 06:41] LABS: ALBUMIN 3.5 g/dl (3.4-5.0); ALK PHOS 77 U/L (45-117); ANION GAP 10 (8-16); BILIRUBIN,TOTAL 0.2 mg/dL (0.2-1.0); BLOOD UREA NITROGEN 21 mg/dL (7-18); CALCIUM 8.8 mg/dL (8.5-10.1); CHLORIDE 110 mmol/L (98-107); CO2 23 mmol/L (21-32); CREATININE 1.4 mg/dL (0.55-1.02); GLUCOSE,RANDOM 94 mg/dL (74-106); POTASSIUM 3.3 mmol/L (3.5-5.1); SGOT/AST 20 U/L (15-37); SGPT/ALT 17 U/L (12-78); SODIUM 143 mmol/L (136-145); TOT PROT 7.2 g/dl (6.4-8.2)
[2018-01-11] MEDS ORDERED: POTASSIUM CHLORIDE TABS 20 MEQ TABLET.ER (FP) PO ONE ×2 (06:42→06:47)
[2018-01-11 07:07] LABS: URINE APPEARANCE SLCLOUDY; URINE BILIRUBIN NEGATIVE (<2.0 mg/dL); URINE COLOR LTYELLOW; URINE GLUCOSE (UA) NEGATIVE (NEGATIVE); URINE KETONE NEGATIVE (NEGATIVE); URINE NITRITE NEGATIVE (NEGATIVE); URINE PROTEIN NEGATIVE (NEGATIVE); URINE UROBILINOGEN NEGATIVE mg/dL (0.2-1.0)
[2018-01-11 07:10] LABS: URINE LEUK ESTERASE 2+ (NEGATIVE)
[2018-01-11 07:11] LABS: EPI CELLS FEW /HPF (FEW); URINE BACTERIA RARE /hpf (NONE SEEN); URINE MUCUS RARE
--- NOTE | 2018-01-11 07:52 | PDOC ---
*Physical Exam - Vital Signs Last Vital Signs Temp Pulse Resp BP Pulse Ox 97.7 F 95 H 19 160/79 99 01/11/18 05:34 01/11/18 05:34 01/11/18 05:34 01/11/18 05:34 01/11/18 05:34 01/11/18 07:43 Patient's care endorsed to me by Dr. Reddy and Dr. Valentino at the end of their shift. 82 YOF with h/o DM-II who p/w hypoglycemia to 50s during sleeping overnight, improved with D10 given by EMS. Patient states she feels well lately , just does not have an appetite like she used to, states this is not a recent change and has been going on for a while. ED Treatment Course - LABORATORY CBC & Chemistry Diagram: 01/11/18 06:00 01/11/18 06:00 - ADDITIONAL ORDERS Additional order review: Laboratory Results 01/11/18 01/11/18 01/11/18 06:00 06:00 06:00 Sodium 143 Potassium 3.3 L Chloride 110 H Carbon Dioxide 23 Anion Gap 10 BUN 21 H Creatinine 1.4 H Creat Clearance w eGFR 35.91 POC Glucometer Random Glucose 94 Calcium 8.8 Total Bilirubin 0.2 D AST 20 ALT 17 Alkaline Phosphatase 77 Creatine Kinase 186 Creatine Kinase Index 1.1 CK-MB (CK-2) 2.13 Troponin I < 0.02 Total Protein 7.2 Albumin 3.5 Urine Color Ltyellow Urine Appearance Slcloudy Urine pH 5.0 D Ur Specific [place] 1.010 Urine Protein Negative Urine Glucose (UA) Negative Urine Ketones Negative Urine Blood Negative Urine Nitrite Negative Urine Bilirubin Negative Urine Urobilinogen Negative Ur Leukocyte Esterase 2+ H Urine WBC (Auto) 10 Urine RBC (Auto) 3 Ur Epithelial Cells Few Urine Bacteria Rare Urine Mucus Rare 01/11/18 05:37 Sodium Potassium Chloride Carbon Dioxide Anion Gap BUN Creatinine Creat Clearance w eGFR POC Glucometer 130.67192 Random Glucose Calcium Total Bilirubin AST ALT Alkaline Phosphatase Creatine Kinase Creatine Kinase Index CK-MB (CK-2) Troponin I Total Protein Albumin Urine Color Urine Appearance Urine pH Ur Specific [place] Urine Protein Urine Glucose (UA) Urine Ketones Urine Blood Urine Nitrite Urine Bilirubin Urine Urobilinogen Ur Leukocyte Esterase Urine WBC (Auto) Urine RBC (Auto) Ur Epithelial Cells Urine Bacteria Urine Mucus 01/11/18 01/11/18 06:00 05:37 RBC 4.00 MCV 84.2 MCHC 33.4 RDW 15.4 MPV 8.5 POC Glucometer 130.22860 - Medications Given in the ED: ED Medications Discontinued Medications Generic Name Dose Route Start Last Admin Trade Name Steffanie PRN Reason Stop Dose Admin Potassium Chloride 40 meq 01/11/18 06:42 01/11/18 07:08 K-Dur - PO 01/11/18 06:43 40 meq ONCE ONE Administration Medical Decision Making - Medical Decision Making Patient's repeat finger stick BG wnl. She denies sxs and wants to go home with daughter. She will have someone to watch her at home. Denies any urinary symptoms; UA borderline and without sxs will not tx. She is eating well and denies sxs. Workup is not concerning for emergency-level pathology at this time. The Pt is appropriate for discharge with close outpatient follow up. The family is comfortable with this plan and will follow up with their PCP on Saturday. They agree to return to the ED with any new/worsening symptoms. Specific return precautions are discussed and they will come back to the ER if necessary. *DC/Admit/Observation/Transfer Diagnosis at time of Disposition: Hypoglycemia - Discharge Dispostion Disposition: HOME Condition at time of disposition: Stable Decision to Admit order: No - Referrals Referrals: Tj Morales [Primary Care Provider] - - Patient Instructions Printed Discharge Instructions: DI for Hyperglycemia -- Adult Additional Instructions: You were seen in the ER for low blood sugar. We did lab work on your blood and urine, and there were no new concerning findings. We talked about the results of these studies with you and made sure you know to eat a regular diet at home to keep your blood sugar normal. After our assessment, we do not believe you are having a medical emergency at this time, and we believe you are safe to go home. Please continue taking your normal diabetic medications. Please follow up with your regular doctor in 1-3 days. Call their clinic [facility], tell them you were seen in the ER, and tell them you need an appointment. Please come back to the ER at any time, 24 hours a day, for any new or worsening symptoms, especially for loss of consciousness, dizziness, palpitations, chest pain, headache, or other symptoms. If you are having severe or life threatening symptoms, or symptoms that make it unsafe to drive or have someone drive you, please call 911. - Post Discharge Activity
[2018-01-11 09:19] VITALS: BP 148/66; PULSE 76
--- NOTE | 2018-01-11 17:45 | EKG ---
Test Reason : Blood Pressure : / mmHG Vent. Rate : 084 BPM Atrial Rate : 084 BPM P-R Int : 214 ms QRS Dur : 112 ms QT Int : 418 ms P-R-T Axes : 095 -28 091 degrees QTc Int : 493 ms SINUS RHYTHM WITH 1ST DEGREE A-V BLOCK INCOMPLETE LEFT BUNDLE BRANCH BLOCK LEFT VENTRICULAR HYPERTROPHY WITH REPOLARIZATION ABNORMALITY PROLONGED QT ABNORMAL ECG WHEN COMPARED WITH ECG OF 11-JAN-2018 06:00, PREMATURE VENTRICULAR COMPLEXES ARE NO LONGER PRESENT Confirmed by SUZI CHUNG MD ([id number]) on 01/11/2018 5:45:08 PM Referred By: Confirmed By:SUZI CHUNG MD
--- NOTE | 2018-01-11 17:47 | EKG ---
Test Reason : Blood Pressure : / mmHG Vent. Rate : 085 BPM Atrial Rate : 085 BPM P-R Int : 204 ms QRS Dur : 108 ms QT Int : 382 ms P-R-T Axes : 091 -29 087 degrees QTc Int : 454 ms POOR DATA QUALITY, INTERPRETATION MAY BE ADVERSELY AFFECTED SINUS RHYTHM WITH OCCASIONAL PREMATURE VENTRICULAR COMPLEXES INCOMPLETE LEFT BUNDLE BRANCH BLOCK WITH 1ST DEGREE A-V BLOCK MODERATE VOLTAGE CRITERIA FOR LVH, MAY BE NORMAL VARIANT T WAVE ABNORMALITY, CONSIDER LATERAL ISCHEMIA ABNORMAL ECG WHEN COMPARED WITH ECG OF 07-SEP-2017 13:31, PREMATURE VENTRICULAR COMPLEXES ARE NOW PRESENT ABERRANT CONDUCTION IS NO LONGER PRESENT NONSPECIFIC T WAVE ABNORMALITY NO LONGER EVIDENT IN INFERIOR LEADS T WAVE INVERSION NOW EVIDENT IN LATERAL LEADS Confirmed by SHELDON GOLDBERG, SUZI ([id number]) on 01/11/2018 5:47:30 PM Referred By: Confirmed By:SUZI CHUNG MD
== END 2018-01-11 09:19 | disposition home or self-care (01) ==
LOC: JER 05:22
DX: E11.649 Type 2 diabetes mellitus with hypoglycemia without coma (principal); Z79.4 Long term (current) use of insulin; Z91.14 Patient's other noncompliance with medication regimen; I25.10 Atherosclerotic heart disease of native coronary artery without angina pectoris; I10 Essential (primary) hypertension; Z95.5 Presence of coronary angioplasty implant and graft; E78.00 Pure hypercholesterolemia, unspecified; K21.9 Gastro-esophageal reflux disease without esophagitis; Z87.19 Personal history of other diseases of the digestive system; Z95.828 Presence of other vascular implants and grafts
CPT/HCPCS: 36415; 80053; 81003; 81015; 82550; 82553; 82962; 84484; 85027; 93005; 93010; 99284-25

== ENCOUNTER 2018-06-05 11:34 | Emergency (ER) | payer MEDICARE ==
[2018-06-05 11:39] VITALS: BP 104/60; PULSE 99; TEMP 98.4; BMI 29.5
--- NOTE | 2018-06-05 12:23 | PDOC ---
History of Present Illness - General Chief Complaint: Pain Stated Complaint: BODYACHES Time Seen by Provider: 06/05/18 11:59 History Source: Patient Exam Limitations: Clinical Condition - History of Present Illness Initial Comments: 06/05/18 12:19 Patient with history of CAD, diabetes, hyperlipidemia and GERD present with complain of pain to upper and lower extremity joints of shoulders, elbows and knee for a month. Patient reported pain comes on with ambulation and improves with rest. Patient denies any trauma or injuries. Patient reported history of arthritis in the back. Patient denies any other symptoms. 06/05/18 12:27 patient's daughter request follow-up for excessive sleepiness of mother with she doses off when talking to people and when she is watching TV Timing/Duration: other (1 month) Past History - Past Medical History Allergies/Adverse Reactions: Allergies Allergy/AdvReac Type Severity Reaction Status Date / Time No Known Allergies Allergy Verified 01/11/18 05:41 Home Medications: Ambulatory Orders Amlodipine Besylate [Norvasc -] 5 mg PO DAILY 04/29/13 Aspirin [ASA -] 81 mg PO DAILY 04/29/13 Clopidogrel Bisulfate [Plavix -] 75 mg PO DAILY 04/29/13 Enalapril Maleate [Vasotec -] 20 mg PO DAILY 04/29/13 Metoprolol Tartrate [Lopressor -] 50 mg PO BID 04/29/13 Simvastatin [Zocor -] 40 mg PO DAILY 04/29/13 Iron Polysaccharides [Niferex-150 -] 150 mg PO DAILY 06/05/16 Omeprazole 40 mg PO DAILY 06/05/16 Folic Acid - 1 mg PO DAILY 03/15/17 Glimepiride [Amaryl -] 4 mg PO DAILY 03/15/17 Meloxicam 7.5 mg PO DAILY PRN #10 tablet 06/05/18 Methocarbamol [Robaxin -] 500 mg PO BID PRN #14 tablet 06/05/18 Anemia: Yes Asthma: No Cancer: No Cardiac Disorders: Yes (CAD, Stent) CVA: No COPD: No CHF: No Dementia: No Diabetes: Yes GI Disorders: Yes (GERD) Disorders: No HTN: Yes Hypercholesterolemia: Yes Liver Disease: Yes (HEPATIC CYST, COLON POLYP) Seizures: No Thyroid Disease: No - Surgical History Cardiac Surgery: Yes (2 STENT(1 TO HEART, 1 TO RT LEG)) - Immunization History Immunization Up to Date: Yes - Suicide/Smoking/Psychosocial Hx Smoking Status: No Smoking History: Never smoked Have you smoked in the past 12 months: No Number of Cigarettes Smoked Daily: 0 Information on smoking cessation initiated: No Hx Alcohol Use: No Drug/Substance Use Hx: No Substance Use Type: None Review of Systems - Review of Systems Able to Perform ROS?: Yes Is the patient limited Cypriot proficient: No Constitutional: No: Weakness Respiratory: No: Symptoms reported Cardiac (ROS): No: Symptoms Reported ABD/GI: No: Symptoms Reported Musculoskeletal: Yes: See HPI, Joint Pain (b/l arms, knees and forearm), Muscle Pain (b/l thigh area). No: Back Pain, Muscle Weakness, Joint Stiffness All Other Systems: Reviewed and Negative *Physical Exam - Vital Signs Last Vital Signs Temp Pulse Resp BP Pulse Ox 98.4 F 99 H 19 104/60 97 06/05/18 11:36 06/05/18 11:36 06/05/18 11:36 06/05/18 11:36 06/05/18 11:36 - Physical Exam Comments: 06/05/18 12:22 GENERAL: Well developed, well nourished. Awake and alert. No acute distress. NECK: Supple. Full ROM. No JVD. Carotid pulses 2+ and symmetric, without bruits. No thyromegaly. No lymphadenopathy. CARDIOVASCULAR: Regular rate and rhythm. No murmurs, rubs, or gallops. Distal pulses are 2+ and symmetric. PULMONARY: No evidence of respiratory distress. Lungs clear to auscultation bilaterally. No wheezing, rales or rhonchi. ABDOMINAL: Soft. Non-tender. Non-distended. No rebound or guarding. No organomegaly. Normoactive bowel sounds. MUSCULOSKELETAL Normal range of motion at all joints. No bony deformities or tenderness. No CVA tenderness. EXTREMITIES: No cyanosis. No clubbing. No edema. No calf tenderness. SKIN: Warm and dry. Normal capillary refill. No rashes. No jaundice. NEUROLOGICAL: Alert, awake, appropriate. Gait is normal without ataxia with a cane. PSYCHIATRIC: Cooperative. Good eye contact. Appropriate mood and affect. General Appearance: Yes: Nourished, Appropriately Dressed. No: Apparent Distress ED Treatment Course - RADIOLOGY Radiology Studies Ordered: Category Date Time Status FOREARM- LEFT [RAD] Stat Radiology 06/05/18 12:11 Ordered FOREARM- RIGHT [RAD] Stat Radiology 06/05/18 12:11 Ordered KNEE 2 POS-LEFT [RAD] Stat Radiology 06/05/18 12:11 Ordered KNEE 2 POS-RIGHT [RAD] Stat Radiology 06/05/18 12:11 Ordered WRIST W/HAND-LEFT* [RAD] Stat Radiology 06/05/18 12:11 Ordered WRIST W/HAND-RIGHT* [RAD] Stat Radiology 06/05/18 12:11 Ordered Medical Decision Making - Medical Decision Making 06/05/18 12:23 Patient with history of multiple comorbidities present with complain of pain to bilateral upper and lower extremities for months without trauma injury. Exams could not elicit any clear tenderness to extremities. X-ray of bilateral knees, bilateral forearms and bilateral wrist ordered. Symptoms likely musculoskeletal. Patient be discharged home on muscle relaxer and NSAIDs with orthopedics follow-up. 06/05/18 13:44 x-rays of lumbasacral and B/L UE/LE shows no acute pathology but have severe arthritis changes. patient stable for discharge on muscle relaxer and NSAID with neurosurgery and orthopedics follow-up *DC/Admit/Observation/Transfer Diagnosis at time of Disposition: Bilateral thigh pain, Hypersomnolence Arm pain, musculoskeletal Qualifiers: Laterality: unspecified laterality Qualified Code(s): M79.603 - Pain in arm, unspecified Lumbago Qualifiers: Chronicity: chronic Back pain laterality: midline Sciatica presence: without sciatica Qualified Code(s): M54.5 - Low back pain; G89.29 - Other chronic pain - Discharge Dispostion Disposition: HOME Condition at time of disposition: Stable Decision to Admit order: No - Prescriptions Prescriptions: Meloxicam 7.5 mg PO DAILY PRN #10 tablet PRN Reason: joint pain Methocarbamol [Robaxin -] 500 mg PO BID PRN #14 tablet PRN Reason: muscle cramps - Referrals Referrals: Tj Morales [Primary Care Provider] - Chuy Messina MD, FAANS [Staff Physician] - Rico Hall MD [Staff Physician] - Karl Jenkins MD [Staff Physician] - - Patient Instructions Printed Discharge Instructions: Osteoarthritis Additional Instructions: x-rays shows severe arthritis changes. take medication as prescribed for pain. follow-up with neurosugery Dr. Chun for back pain and orthopedic Dr. Hall for joint pains. Follow-up with referred pulmonology for evaluation of excessive sleepiness - Post Discharge Activity
== END 2018-06-05 14:00 | disposition home or self-care (01) ==
LOC: JERFT 11:34
DX: M13.89 Other specified arthritis, multiple sites (principal); M25.511 Pain in right shoulder; M25.512 Pain in left shoulder; M25.561 Pain in right knee; M25.562 Pain in left knee; M25.531 Pain in right wrist; M54.5 Low back pain; I25.10 Atherosclerotic heart disease of native coronary artery without angina pectoris; I10 Essential (primary) hypertension; Z95.5 Presence of coronary angioplasty implant and graft; E78.5 Hyperlipidemia, unspecified; K21.9 Gastro-esophageal reflux disease without esophagitis; E11.9 Type 2 diabetes mellitus without complications; D64.9 Anemia, unspecified; Z95.828 Presence of other vascular implants and grafts; R40.0 Somnolence
CPT/HCPCS: 72100-TC-FY; 73090-TC-LT-FY; 73090-TC-RT-FY; 73110-TC-LR-FY; 73110-TC-RT-FY; 73130-TC-LR-FY; 73130-TC-RT-FY; 73560-TC-LT-FY; 73560-TC-RT-FY; 82962; 99281-25

== ENCOUNTER 2018-09-05 15:10 | Observation (INO) | payer MEDICARE, OTHER ==
[2018-09-05] MEDS ORDERED: SODIUM CHLORIDE 0.9% 500 ML INFUS.BAG IV ONE (15:19)
--- NOTE | 2018-09-05 15:21 | PDOC ---
Rapid Medical Evaluation Time Seen by Provider: 09/05/18 15:17 Medical Evaluation: Allergies Allergy/AdvReac Type Severity Reaction Status Date / Time No Known Allergies Allergy Verified 01/11/18 05:41 09/05/18 15:17 I have performed a brief in-person evaluation of this patient. The patient presents with a chief complaint of: Sent by PCP for low H/H Pertinent physical exam findings: SOB I have ordered the following: Preliminary lab work The patient will proceed to the ED for further evaluation.
[2018-09-05 15:22] VITALS: BMI 28.3
[2018-09-05 15:42] LABS: BASO % 0.5 % (0-2.0); HEMATOCRIT 23.9 % (32.4-45.2); HEMOGLOBIN 7.8 GM/dL (10.7-15.3); MCH 23.2 pg (25.7-33.7); MCHC 32.5 g/dl (32.0-36.0); MEAN CELL VOLUME 71.5 fl (80-96); MEAN PLT VOLUME 7.2 fl (7.5-11.1); MONO % 6.7 % (3.8-10.2); NEUT % 81.8 % (42.8-82.8); PLATELET COUNT 413 K/MM3 (134-434); RBC 3.35 M/mm3 (3.60-5.2); RDW 18.5 % (11.6-15.6); WHITE BLOOD COUNT 7.5 K/mm3 (4.0-10.0)
[2018-09-05 15:58] LABS: INR 1.24 (0.83-1.09); PROTHROMBIN TIME (PATIENT) 14.7 SEC (9.7-13.0)
[2018-09-05 16:12] LABS: ALBUMIN 2.6 g/dl (3.4-5.0); ALK PHOS 76 U/L (45-117); ANION GAP 13 MMOL/L (8-16); BILIRUBIN,TOTAL 0.5 mg/dL (0.2-1); BLOOD UREA NITROGEN 21 mg/dL (7-18); CALCIUM 9.1 mg/dL (8.5-10.1); CHLORIDE 100 mmol/L (98-107); CO2 22 mmol/L (21-32); CREATININE 1.4 mg/dL (0.55-1.3); GLUCOSE,RANDOM 191 mg/dL (74-106); POTASSIUM 4.5 mmol/L (3.5-5.1); SGOT/AST 13 U/L (15-37); SGPT/ALT 9 U/L (13-61); SODIUM 134 mmol/L (136-145); TOT PROT 7.4 g/dl (6.4-8.2)
--- NOTE | 2018-09-05 16:23 | PDOC ---
Attending Attestation - Resident Resident Name: Lorene Hernandez - ED Attending Attestation I have performed the following: I have examined & evaluated the patient, The case was reviewed & discussed with the resident, I agree w/resident's findings & plan, Exceptions are as noted - HPI HPI: 09/05/18 16:23 82y F hx of DM, HL, GERD, arthritis CAD on plavix and asa sent to the ED for evaluation of Anemia. The patient has been in her usual state of health, had lab work by her PMD recently, was notd to be anemic to hbg of 7.9, was referred to her fire hose curer who referred her to the ED. The pt notes some CLAY, but has been going on for a while, denie any other symptoms such as chest pain, abd pain , dizziness, leg swelling. Pt does note dark colored stools, but was attributing it to taking iron. Notes she has been anemic before. denies any denton blood in stool. - Physicial Exam PE: 09/05/18 19:44 GENERAL: no acute distress EXT: trace edema, no calf tenderness CARD: rrr, no mrg PULM: cta bl - Medical Decision Making 09/05/18 17:31 lbas reviewed noted for anemia, 5pt ct drop from dec occult stool neg for blood as pt has CAD and mildly tachycardic will transfuse 1U and will admit for further evaluation of anemia
[2018-09-05 17:53] LABS: URINE APPEARANCE CLOUDY; URINE BILIRUBIN NEGATIVE (<2.0 mg/dL); URINE COLOR AMBER; URINE GLUCOSE (UA) NEGATIVE (NEGATIVE); URINE KETONE NEGATIVE (NEGATIVE); URINE LEUK ESTERASE 3+ (NEGATIVE); URINE NITRITE NEGATIVE (NEGATIVE); URINE PROTEIN NEGATIVE (NEGATIVE)
[2018-09-05 18:09] LABS: EPI CELLS MANY /HPF (FEW); URINE BACTERIA MODERATE /hpf (NONE SEEN); URINE HYALINE CAST 3 /lpf; URINE MUCUS RARE
--- NOTE | 2018-09-05 18:56 | PDOC ---
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 Pt went to buckle and button maker office and was told to come to the emergency room. Pt endorses SOB upon exertion and occasional palpitations. She denies chest pain, lightheadedness, syncope, headaches, leg swelling, n/v/d, blood in stool. She endorses occasional dark stool but thinks it may be due to the iron pills she takes. PMD: Carmen Card: [facility] PMH: see hpi PSH: see hpi Meds: see med rec Allergies: nkda Social: denies Past History - Past Medical History Allergies/Adverse Reactions: Allergies Allergy/AdvReac Type Severity Reaction Status Date / Time No Known Allergies Allergy Verified 09/05/18 15:18 Home Medications: Ambulatory Orders Amlodipine Besylate [Norvasc -] 5 mg PO DAILY 09/05/18 Clopidogrel Bisulfate [Clopidogrel] 75 mg PO DAILY 09/05/18 Enalapril Maleate [Vasotec] 20 mg PO DAILY 09/05/18 Folic Acid 1 mg PO DAILY 09/05/18 Iron Polysaccharides [Niferex-150 -] 150 mg PO DAILY 09/05/18 Methocarbamol 500 mg PO DAILY 09/05/18 Metoprolol Tartrate [Lopressor -] 50 mg PO DAILY 09/05/18 Omeprazole 20 mg PO DAILY 09/05/18 Simvastatin 40 mg PO DAILY 09/05/18 Anemia: Yes Asthma: No Cancer: No Cardiac Disorders: Yes (CAD, Stent) CVA: No COPD: No CHF: No Dementia: No Diabetes: Yes GI Disorders: Yes (GERD) Disorders: No HTN: Yes Hypercholesterolemia: Yes Liver Disease: Yes (HEPATIC CYST, COLON POLYP) Seizures: No Thyroid Disease: No - Surgical History Cardiac Surgery: Yes (2 STENT(1 TO HEART, 1 TO RT LEG)) - Immunization History Immunization Up to Date: Yes - Suicide/Smoking/Psychosocial Hx Smoking Status: No Smoking History: Never smoked Have you smoked in the past 12 months: No Number of Cigarettes Smoked Daily: 0 Hx Alcohol Use: No Drug/Substance Use Hx: No Substance Use Type: None Review of Systems - Review of Systems Constitutional: No: Chills, Fever, Weakness HEENTM: No: Eye Pain, Double Vision Respiratory: Yes: SOB with Exertion. No: Cough Cardiac (ROS): Yes: Palpitations. No: Chest Pain, Lightheadedness, Syncope ABD/GI: No: Diarrhea, Nausea, Poor Appetite, Poor Fluid Intake, Vomiting, Abdominal cramping, Tarry Stools : No: Burning, Dysuria Musculoskeletal: No: Back Pain, Muscle Weakness, Neck Pain Integumentary: No: Symptoms Reported Neurological: No: Headache, Numbness, Paresthesia, Tingling, Tremors *Physical Exam - Vital Signs Last Vital Signs Temp Pulse Resp BP Pulse Ox 97.8 F 92 H 16 134/81 98 09/05/18 18:29 09/05/18 18:29 09/05/18 18:29 09/05/18 18:29 09/05/18 18:29 - Physical Exam General Appearance: Yes: Nourished, Appropriately Dressed. No: Apparent Distress HEENT: positive: EOMI, SABIHA, Pharynx Normal, Pale Conjunctivae Neck: positive: Trachea midline, Supple. negative: Lymphadenopathy (R), Lymphadenopathy (L) Respiratory/Chest: positive: Lungs Clear, Normal Breath Sounds. negative: Crackles, Rales, Rhonchi, Stridor, Wheezing Cardiovascular: positive: Regular Rhythm, S1, S2, Tachycardia. negative: Edema , JVD, Murmur Vascular Pulses: Carotid (R): 2+, Carotid (L): 2+, Dorsalis-Pedis (R): 2+, Doralis-Pedis (L): 2+ Gastrointestinal/Abdominal: positive: Normal Bowel Sounds, Soft. negative: Guarding, Rebound, Tenderness Rectal Exam: positive: heme negative stool, normal rectal tone. negative: hemorrhoids Musculoskeletal: negative: CVA Tenderness Extremity: positive: Normal Capillary Refill, Pelvis Stable. negative: Coldness , Cyanosis, Swelling, Calf Tenderness Integumentary: positive: Dry, Warm, Pale. 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 NML intact, Fully Oriented, Alert, Normal Mood/ Affect, Normal Response, Motor Strength 5/5 Moderate Sedation - Procedure Monitoring Vital Signs: Procedure Monitoring Vital Signs Temperature 97.8 F 09/05/18 18:29 Pulse Rate 92 H 09/05/18 18:29 Respiratory Rate 16 09/05/18 18:29 Blood Pressure 134/81 09/05/18 18:29 O2 Sat by Pulse Oximetry (%) 98 09/05/18 18:29 ED Treatment Course - LABORATORY CBC & Chemistry Diagram: 09/05/18 15:29 09/05/18 15:29 - ADDITIONAL ORDERS Additional order review: Laboratory Results 09/05/18 09/05/18 09/05/18 17:53 17:30 16:36 PT with INR INR Sodium Potassium Chloride Carbon Dioxide Anion Gap BUN Creatinine Creat Clearance w eGFR Random Glucose Calcium Total Bilirubin AST ALT Alkaline Phosphatase Troponin I Total Protein Albumin Urine Color [place] Urine Appearance Cloudy Urine pH 6.0 Ur Specific [place] 1.012 Urine Protein Negative Urine Glucose (UA) Negative Urine Ketones Negative Urine Blood 1+ H Urine Nitrite Negative Urine Bilirubin Negative Urine Urobilinogen 2.0 H Ur Leukocyte Esterase 3+ H Urine WBC (Auto) 38 Urine RBC (Auto) 19 Ur Epithelial Cells Many Urine Bacteria Moderate Hyaline Casts 3 Urine Mucus Rare Stool Occult Blood Negative Blood Type O POSITIVE Antibody Screen Crossmatch 09/05/18 09/05/18 09/05/18 15:29 15:29 15:29 PT with INR 14.70 H INR 1.24 H Sodium 134 L Potassium 4.5 Chloride 100 Carbon Dioxide 22 Anion Gap 13 BUN 21 H Creatinine 1.4 H Creat Clearance w eGFR 35.91 Random Glucose 191 H Calcium 9.1 Total Bilirubin 0.5 AST 13 L ALT 9 L Alkaline Phosphatase 76 Troponin I < 0.02 Total Protein 7.4 Albumin 2.6 L Urine Color Urine Appearance Urine pH Ur Specific [place] Urine Protein Urine Glucose (UA) Urine Ketones Urine Blood Urine Nitrite Urine Bilirubin Urine Urobilinogen Ur Leukocyte Esterase Urine WBC (Auto) Urine RBC (Auto) Ur Epithelial Cells Urine Bacteria Hyaline Casts Urine Mucus Stool Occult Blood Blood Type O POSITIVE Antibody Screen Negative Crossmatch See Detail 09/05/18 15:29 RBC 3.35 L MCV 71.5 L MCHC 32.5 RDW 18.5 H MPV 7.2 L D Neutrophils % 81.8 D Lymphocytes % 11.0 D Monocytes % 6.7 Eosinophils % 0.0 Basophils % 0.5 - Medications Given in the ED: ED Medications Discontinued Medications Generic Name Dose Route Start Last Admin Trade Name Steffanie PRN Reason Stop Dose Admin Sodium Chloride 250 ml 09/05/18 15:19 09/05/18 16:54 Normal Saline - IV 09/05/18 15:20 250 ml ONCE ONE Administration Medical Decision Making - Medical Decision Making Pt is an 82yo F with PMH of CAD s/p stent 6 years ago, HTN, HLD, Anemia presenting to ED from PMD office for low H/H. Pt went to buckle and button maker office and was told to come to the emergency room. Pt endorses SOB upon exertion and occasional palpitations. She denies chest pain, lightheadedness, syncope, headaches, leg swelling, n/v/d, blood in stool. She endorses occasional dark stool but thinks it may be due to the iron pills she takes. Vitals: tachycardia 113. BP wnl. PE: pale conjunctiva, pale appearing. No edema. Sent here from PMD for anemia. labs ordered by rme. EKG ordered. Guaiac labs significant for low hemoglobin (7.8) was around 11-12 last year. Guaiac negative. Cr 1.4 (baseline). EKG does not show acute changes. Due to history of CAD and symptoms, will transfuse 1 unit. Pt admitted for symptomatic anemia. 09/05/18 20:40 regino reeder called and wondered what was going on with pt. Agreed with admission. *DC/Admit/Observation/Transfer Diagnosis at time of Disposition: Anemia Qualifiers: Anemia type: unspecified type Qualified Code(s): D64.9 - Anemia, unspecified - Discharge Dispostion Condition at time of disposition: Good Decision to Admit order: Yes Decision to Admit order Date/Time: Decision to Admit Order Category Date Time Status Decision to Admit to Hospital Routine Admission 09/05/18 17:33 Active - Referrals - Patient Instructions - Post Discharge Activity
[2018-09-05] MEDS ORDERED: ACETAMINOPHEN 325 MG TABLET (FP) PO PRN (20:21)
--- NOTE | 2018-09-05 20:32 | HP ---
CHIEF COMPLAINT: sent by pcp for anemia PCP: Dr. Morales HISTORY OF PRESENT ILLNESS: Patient is an 82 yo F with a PMHx DM, GERD, arthritis, CAD on ASA, Plavix (s/p stent 6 years ago), was sent by her admissions representative (Dr. Moss) because of a Hgb level of 7.8 in the office. Patient denies any symptoms except for SOB on exertion, which she said was chronic. Patient said she's had anemia for many years but it was never this bad. She is taking iron pills daily at home. She said she had a normal colonoscopy and endoscopy about 3 years ago which did not reveal anything. Patient says she's been having dark stools ever since starting iron years ago. She denies hematemasis, hematochezia,palpitations, chest pain, lightheadedness , syncope, JEAN, leg swelling, nausea, vomiting, fevers, chills. ER course was notable for: (1) Hgb 7.8 Recent Travel: denies PAST MEDICAL HISTORY: per HPI Social History: Smoking: denies Alcohol: denies Drugs: denies Family History: Allergies No Known Allergies Allergy (Verified 09/05/18 15:18) HOME MEDICATIONS: Home Medications Medication Instructions Recorded Amlodipine Besylate [Norvasc -] 5 mg PO DAILY 04/29/13 Aspirin [ASA -] 81 mg PO DAILY 04/29/13 Clopidogrel Bisulfate [Plavix -] 75 mg PO DAILY 04/29/13 Enalapril Maleate [Vasotec -] 20 mg PO DAILY 04/29/13 Metoprolol Tartrate [Lopressor -] 50 mg PO BID 04/29/13 Simvastatin [Zocor -] 40 mg PO DAILY 04/29/13 Iron Polysaccharides [Niferex-150 150 mg PO DAILY 06/05/16 -] Omeprazole 40 mg PO DAILY 06/05/16 Folic Acid - 1 mg PO DAILY 03/15/17 Glimepiride [Amaryl -] 4 mg PO DAILY 03/15/17 Meloxicam 7.5 mg PO DAILY PRN #10 tablet 06/05/18 Methocarbamol [Robaxin -] 500 mg PO BID PRN #14 tablet 06/05/18 REVIEW OF SYSTEMS CONSTITUTIONAL: Absent: fever, chills, diaphoresis, generalized weakness, malaise, loss of appetite, weight change HEENT: Absent: rhinorrhea, nasal congestion, throat pain, throat swelling, difficulty swallowing, mouth swelling, ear pain, eye pain, visual changes CARDIOVASCULAR: Absent: chest pain, syncope, palpitations, irregular heart rate, lightheadedness , peripheral edema RESPIRATORY: Absent: cough, shortness of breath, dyspnea with exertion, orthopnea, wheezing, stridor, hemoptysis GASTROINTESTINAL: Absent: abdominal pain, abdominal distension, nausea, vomiting, diarrhea, constipation, melena, hematochezia GENITOURINARY: Absent: dysuria, frequency, urgency, hesitancy, hematuria, flank pain, genital pain MUSCULOSKELETAL: Absent: myalgia, arthralgia, joint swelling, back pain, neck pain SKIN: Absent: rash, itching, pallor HEMATOLOGIC/IMMUNOLOGIC: Absent: easy bleeding, easy bruising, lymphadenopathy, frequent infections ENDOCRINE: Absent: unexplained weight gain, unexplained weight loss, heat intolerance, cold intolerance NEUROLOGIC: Absent: headache, focal weakness or paresthesias, dizziness, unsteady gait, seizure, mental status changes, bladder or bowel incontinence PSYCHIATRIC: Absent: anxiety, depression, suicidal or homicidal ideation, hallucinations. PHYSICAL EXAMINATION Vital Signs - 24 hr 09/05/18 09/05/18 09/05/18 15:20 18:29 19:41 Temperature 98.4 F 97.8 F 98.2 F Pulse Rate 113 H Pulse Rate [ 92 H 86 Left Apical] Respiratory 22 H 16 18 Rate Blood Pressure 134/59 L Blood Pressure 134/81 148/77 [Left Arm] O2 Sat by Pulse 100 98 98 Oximetry (%) GENERAL: Awake, alert, and fully oriented, in no acute distress. HEAD: Normal with no signs of trauma. EYES: Pupils equal, round and reactive to light, extraocular movements intact, pale conjunctiva EARS, NOSE, THROAT: oropharynx clear without exudates. NECK: supple without lymphadenopathy, JVD, or masses. LUNGS: Breath sounds equal, clear to auscultation bilaterally. No wheezes, and no crackles. HEART: Regular rate and rhythm, normal S1 and S2 without murmur, rub or gallop. ABDOMEN: Soft, nontender, not distended, normoactive bowel sounds, no guarding, no rebound, no masses. LOWER EXTREMITIES: 2+ pulses, warm, well-perfused. No peripheral edema. NEUROLOGICAL: Cranial nerves II-XII intact. Normal speech. Normal gait. Laboratory Results - last 24 hr 09/05/18 09/05/18 09/05/18 15:29 15:29 15:29 WBC 7.5 RBC 3.35 L Hgb 7.8 L Hct 23.9 L D MCV 71.5 L MCH 23.2 L D MCHC 32.5 RDW 18.5 H Plt Count 413 D MPV 7.2 L D Absolute Neuts (auto) 6.2 Neutrophils % 81.8 D Lymphocytes % 11.0 D Monocytes % 6.7 Eosinophils % 0.0 Basophils % 0.5 Nucleated RBC % 0 PT with INR 14.70 H INR 1.24 H Sodium 134 L Potassium 4.5 Chloride 100 Carbon Dioxide 22 Anion Gap 13 BUN 21 H Creatinine 1.4 H Creat Clearance w eGFR 35.91 Random Glucose 191 H Calcium 9.1 Total Bilirubin 0.5 AST 13 L ALT 9 L Alkaline Phosphatase 76 Troponin I < 0.02 Total Protein 7.4 Albumin 2.6 L Urine Color Urine Appearance Urine pH Ur Specific [place] Urine Protein Urine Glucose (UA) Urine Ketones Urine Blood Urine Nitrite Urine Bilirubin Urine Urobilinogen Ur Leukocyte Esterase Urine WBC (Auto) Urine RBC (Auto) Ur Epithelial Cells Urine Bacteria Hyaline Casts Urine Mucus Stool Occult Blood Blood Type Antibody Screen Crossmatch 09/05/18 09/05/18 09/05/18 15:29 16:36 17:30 WBC RBC Hgb Hct MCV MCH MCHC RDW Plt Count MPV Absolute Neuts (auto) Neutrophils % Lymphocytes % Monocytes % Eosinophils % Basophils % Nucleated RBC % PT with INR INR Sodium Potassium Chloride Carbon Dioxide Anion Gap BUN Creatinine Creat Clearance w eGFR Random Glucose Calcium Total Bilirubin AST ALT Alkaline Phosphatase Troponin I Total Protein Albumin Urine Color [place] Urine Appearance Cloudy Urine pH 6.0 Ur Specific [place] 1.012 Urine Protein Negative Urine Glucose (UA) Negative Urine Ketones Negative Urine Blood 1+ H Urine Nitrite Negative Urine Bilirubin Negative Urine Urobilinogen 2.0 H Ur Leukocyte Esterase 3+ H Urine WBC (Auto) 38 Urine RBC (Auto) 19 Ur Epithelial Cells Many Urine Bacteria Moderate Hyaline Casts 3 Urine Mucus Rare Stool Occult Blood Negative Blood Type O POSITIVE Antibody Screen Negative Crossmatch See Detail 09/05/18 17:53 WBC RBC Hgb Hct MCV MCH MCHC RDW Plt Count MPV Absolute Neuts (auto) Neutrophils % Lymphocytes % Monocytes % Eosinophils % Basophils % Nucleated RBC % PT with INR INR Sodium Potassium Chloride Carbon Dioxide Anion Gap BUN Creatinine Creat Clearance w eGFR Random Glucose Calcium Total Bilirubin AST ALT Alkaline Phosphatase Troponin I Total Protein Albumin Urine Color Urine Appearance Urine pH Ur Specific [place] Urine Protein Urine Glucose (UA) Urine Ketones Urine Blood Urine Nitrite Urine Bilirubin Urine Urobilinogen Ur Leukocyte Esterase Urine WBC (Auto) Urine RBC (Auto) Ur Epithelial Cells Urine Bacteria Hyaline Casts Urine Mucus Stool Occult Blood Blood Type O POSITIVE Antibody Screen Crossmatch ASSESSMENT/PLAN: 82 yo F with a PMHx DM, GERD, arthritis, CAD on ASA, Plavix (s/p stent 6 years ago), was sent by her admissions representative because of a Hgb level of 7.8 in the office. #Microcytic Anemia -patient has chronic anemia -ideal to keep Hgb >8 in cardiac patient. -iron studies, b12, retic count -transfuse 1 U -FOBT negative -cont AC -give IV iron if indicated -can consider consulting Dr. Moss in the AM. Patient said he wanted to see her. #CAD s/p stent -cont. home meds #HTN -cont home meds #Asympomatic Pyuria -LE 3+ -WBC 38 -1x ceftriaxone -Follow Ucx #DM -ISS -BGM ACHS #FEN -No iv fluids -monitor -low sodium diet #DVT Dispo: obs Visit type - Emergency Visit Emergency Visit: Yes ED Registration Date: 09/05/18 Care time: The patient presented to the Emergency Department on the above date and was hospitalized for further evaluation of their emergent condition. - New Patient This patient is new to me today: Yes Date on this admission: 09/08/18 - Critical Care Critical Care patient: No
--- NOTE | 2018-09-05 20:34 | PN ---
Teaching Attending Note Name of Resident: Luanne Chiang ATTENDING PHYSICIAN STATEMENT I saw and evaluated the patient. I reviewed the resident's note and discussed the case with the resident. I agree with the resident's findings and plan as documented. SUBJECTIVE: Seen and examined; please see resident note for further historical information. Briefly, this is a 82 y/o female presenting to the ER after being told to by her OP providers for anemia. She has no complaints. She has prior history of chronic dark stools after being on iron, but no recent changes. Denies hemetemesis, hematochezia. Is on ASA, Plavix for CAD. She was found to have a Hb of 7.8. Admission requested; I am told patient's CV wanted to see her inpatient in the AM so we will consult. 10 sys ROS done and negative aside from HPI PMH and PSH reviewed; Social and Family Hx Reviewed Medication list reviewed; reconciliation pending OBJECTIVE: VS, labs, imaging reviewed NAD, AAO, resting comfortably in bed RRR s1/2 no mgr Lungs CTAB, w/ sym exp NT ND +BS CN2-12 wnl, no fnd Normal mood, appropriate affect ASSESSMENT AND PLAN: Patient presents at the behest of PCP for anemia; she has a negative FOBT and is asymptomatic. Hb 7.8 1) Microcytic Anemia 2) CAD s/p remote PCI 3) HTN 4) DM 5) HLD 6) GERD Overall the patient presents with microcytic anemia and will require 1 unit of blood (hx CAD so reasonable to get Hb >8). She will be monitored on observation. No reason to hold AC as negative FOBT; will repeat to ensure OK. I have informed the residents to let her PCP know she is here. We will check iron studies, B12/folate, etc. Give IV iron if indicated.
[2018-09-05] MEDS ORDERED: CEFTRIAXONE 1 GM in DEXTROSE 5%-WATER - 100 ML IVPB ONE (20:55)
[2018-09-05] MEDS ORDERED: cefTRIAXone SODIUM 1 GM VIAL ONE (21:00)
[2018-09-06] MEDS: INSULIN SLIDING SCALE (NOVOLOG) 1 VIAL SQ SCH ×5 (00:13→21:03)
[2018-09-06] MEDS ORDERED: INSULIN REGULAR HUMAN 100 UNITS/ML *VIAL ONE (00:55)
[2018-09-06] MEDS ORDERED: CEFTRIAXONE 1,000 MG in DEXTROSE 5%-WATER - 50 ML IVPB ONE (07:42)
[2018-09-06 09:32] LABS: BASO % 0.6 % (0-2.0); HEMATOCRIT 24.1 % (32.4-45.2); LYMPH % 15.7 % (8-40); MCHC 33.3 g/dl (32.0-36.0); MEAN CELL VOLUME 72.1 fl (80-96); MEAN PLT VOLUME 7.2 fl (7.5-11.1); MONO % 6.5 % (3.8-10.2); NEUT % 77.2 % (42.8-82.8); PLATELET COUNT 369 K/MM3 (134-434); RBC 3.35 M/mm3 (3.60-5.2)
[2018-09-06] MEDS: amLODIPine BESYLATE 5 MG TABLET (FP) PO SCH (09:36)
[2018-09-06] MEDS: METHOCARBAMOL 500 MG TABLET PO SCH (09:36)
[2018-09-06] MEDS: METOPROLOL TARTRATE 50 MG TABLET (FP) PO SCH (09:36)
[2018-09-06] MEDS: ENALAPRIL MALEATE 10 MG TABLET (FP) PO SCH (09:36)
[2018-09-06] MEDS: PANTOPRAZOLE 20 MG TABLET (FP) PO SCH (09:36)
[2018-09-06] MEDS: FOLIC ACID 1 MG TABLET (FP) PO SCH (09:36)
--- NOTE | 2018-09-06 09:53 | PN ---
Progress Note, Physician History of Present Illness: Patient is an 82 yo F with a PMHx DM, GERD, arthritis, CAD on ASA, Plavix (s/p stent 6 years ago), was sent by her human resources consultant (Dr. Moss) because of a Hgb level of 7.8 in the office. Patient denies any symptoms except for SOB on exertion, which she said was chronic. Patient said she's had anemia for many years but it was never this bad. She is taking iron pills daily at home. She said she had a normal colonoscopy and endoscopy about 3 years ago which did not reveal anything. Patient says she's been having dark stools ever since starting iron years ago. She denies hematemasis, hematochezia,palpitations, chest pain, lightheadedness, syncope, JEAN, leg swelling, nausea, vomiting, fevers, chills. ER course was notable for: (1) Hgb 7.8 - Current Medication List Current Medications: Active Medications Acetaminophen (Tylenol -) 650 mg PO Q4H PRN PRN Reason: PAIN LEVEL 6-10 Amlodipine Besylate (Norvasc -) 5 mg PO DAILY [facility] Last Admin: 09/06/18 09:36 Dose: 5 mg Atorvastatin Calcium (Lipitor -) [address] [facility] Clopidogrel Bisulfate (Plavix -) 75 mg PO DAILY [facility] Last Admin: 09/06/18 09:36 Dose: 75 mg Enalapril Maleate (Vasotec -) 20 mg PO DAILY [facility] Last Admin: 09/06/18 09:36 Dose: 20 mg Folic Acid (Folic Acid -) 1 mg PO DAILY [facility] Last Admin: 09/06/18 09:36 Dose: 1 mg Insulin Aspart (Novolog Vial Sliding Scale -) 1 vial SQ [facility]; Protocol Last Admin: 09/06/18 06:14 Dose: Not Given Methocarbamol (Robaxin -) 500 mg PO DAILY [facility] Last Admin: 09/06/18 09:36 Dose: 500 mg Metoprolol Tartrate (Lopressor -) 50 mg PO DAILY [facility] Last Admin: 09/06/18 09:36 Dose: 50 mg Pantoprazole Sodium (Protonix -) 20 mg PO DAILY [facility] Last Admin: 09/06/18 09:36 Dose: 20 mg Polysaccharide Iron Complex (Niferex-150 -) 150 mg PO DAILY [facility] - Objective Vital Signs: Vital Signs Temperature 98.2 F 09/06/18 06:00 Pulse Rate 88 09/06/18 06:00 Respiratory Rate 16 09/06/18 06:00 Blood Pressure 152/75 09/06/18 06:00 O2 Sat by Pulse Oximetry (%) 98 09/06/18 02:57 Eyes: Yes: WNL, Conjunctiva Clear, EOM Intact HENT: Yes: WNL, Atraumatic, Normocephalic Neck: Yes: WNL, Supple, Trachea Midline Cardiovascular: Yes: WNL, Regular Rate and Rhythm Respiratory: Yes: WNL, Regular, CTA Bilaterally Gastrointestinal: Yes: WNL, Normal Bowel Sounds Genitourinary: Yes: WNL Musculoskeletal: Yes: WNL Extremities: Yes: WNL Edema: No Integumentary: Yes: WNL Neurological: Yes: WNL, Alert, Oriented ...Motor Strength: WNL Psychiatric: Yes: WNL Labs: CBC, BMP 09/06/18 08:00 INR, PTT INR 1.24 (0.83-1.09) H 09/05/18 15:29
--- NOTE | 2018-09-06 09:57 | CON.CARD ---
Consult Consult Specialty:: Cardiology - History of Present Illness History of Present Illness: Patient is an 82 yo F with a PMHx DM, GERD, arthritis, CAD on ASA, Plavix (s/p stent 6 years ago), was sent by her field account manager (Dr. Moss) because of a Hgb level of 7.8 in the office. Patient denies any symptoms except for SOB on exertion, which she said was chronic. Patient said she's had anemia for many years but it was never this bad. She is taking iron pills daily at home. She said she had a normal colonoscopy and endoscopy about 3 years ago which did not reveal anything. Patient says she's been having dark stools ever since starting iron years ago. She denies hematemasis, hematochezia,palpitations, chest pain, lightheadedness, syncope, JEAN, leg swelling, nausea, vomiting, fevers, chills. ER course was notable for: (1) Hgb 7.8 PMH ASHD s/p RAFITA Xience mLAD and dLAD 2010 dr. Monterroso CHF systolic 2010 DM 1989 EF 69% on ECHO October 2011 HTN Hyperlipidemia Negative MIBI stress test 2013, 2015 DIRECTOR PATIENT/Stent of the right mid superficial femoral artery February 25, 2014 Dr. Monterroso - History Source History Provided By: Patient, Medical Record - Alcohol/Substance Use Hx Alcohol Use: No - Smoking History Smoking history: Never smoked Have you smoked in the past 12 months: No Aproximately how many cigarettes per day: 0 Home Medications - Allergies Allergies/Adverse Reactions: Allergies Allergy/AdvReac Type Severity Reaction Status Date / Time No Known Allergies Allergy Verified 09/05/18 15:18 - Home Medications Home Medications: Ambulatory Orders Amlodipine Besylate [Norvasc -] 5 mg PO DAILY 09/05/18 Clopidogrel Bisulfate [Clopidogrel] 75 mg PO DAILY 09/05/18 Enalapril Maleate [Vasotec] 20 mg PO DAILY 09/05/18 Folic Acid 1 mg PO DAILY 09/05/18 Iron Polysaccharides [Niferex-150 -] 150 mg PO DAILY 09/05/18 Methocarbamol 500 mg PO DAILY 09/05/18 Metoprolol Tartrate [Lopressor -] 50 mg PO DAILY 09/05/18 Omeprazole 20 mg PO DAILY 09/05/18 Simvastatin 40 mg PO DAILY 09/05/18 Review of Systems - Review of Systems Constitutional: reports: Malaise, Weakness Eyes: reports: No Symptoms HENT: reports: No Symptoms Neck: reports: No Symptoms Cardiovascular: reports: No Symptoms Gastrointestinal: reports: No Symptoms Genitourinary: reports: No Symptoms Breasts: reports: No Symptoms Reported Musculoskeletal: reports: No Symptoms Integumentary: reports: No Symptoms Neurological: reports: No Symptoms Endocrine: reports: No Symptoms Hematology/Lymphatic: reports: No Symptoms Psychiatric: reports: No Symptoms Vital Signs: Vital Signs Temperature 98.2 F 09/06/18 06:00 Pulse Rate 88 09/06/18 06:00 Respiratory Rate 16 09/06/18 06:00 Blood Pressure 152/75 09/06/18 06:00 O2 Sat by Pulse Oximetry (%) 98 09/06/18 02:57 Constitutional: Yes: Well Nourished, No Distress, Calm Eyes: Yes: WNL, Conjunctiva Clear, EOM Intact HENT: Yes: WNL, Atraumatic, Normocephalic Neck: Yes: WNL, Supple, Trachea Midline Respiratory: Yes: WNL, Regular, CTA Bilaterally Gastrointestinal: Yes: WNL, Normal Bowel Sounds Renal/: Yes: WNL Cardiovascular: Yes: WNL, Regular Rate and Rhythm Musculoskeletal: Yes: WNL Extremities: Yes: WNL Integumentary: Yes: WNL Neurological: Yes: WNL, Alert, Oriented ...Motor Strength: WNL Psychiatric: Yes: WNL, Alert, Oriented - Other Data Labs, Other Data: CBC, BMP 09/06/18 08:00 INR, PTT INR 1.24 (0.83-1.09) H 09/05/18 15:29 Troponin, BNP 09/05/18 15:29 Troponin I < 0.02 Troponin, BNP 09/05/18 15:29 Troponin I < 0.02 Imaging - Results Chest X-ray: Image Reviewed (no i/e) EKG: Image Reviewed (s tachy rep abn) Problem List - Problems (1) Anemia Code(s): D64.9 - ANEMIA, UNSPECIFIED Qualifiers: Anemia type: unspecified type Qualified Code(s): D64.9 - Anemia, unspecified (2) AZRA (acute kidney injury) Code(s): N17.9 - ACUTE KIDNEY FAILURE, UNSPECIFIED (3) Arm pain, musculoskeletal Code(s): M79.603 - PAIN IN ARM, UNSPECIFIED Qualifiers: Laterality: unspecified laterality Qualified Code(s): M79.603 - Pain in arm , unspecified (4) Bilateral thigh pain Code(s): M79.651 - PAIN IN RIGHT THIGH; M79.652 - PAIN IN LEFT THIGH (5) Elevated CK Code(s): R74.8 - ABNORMAL LEVELS OF OTHER SERUM ENZYMES (6) Hypersomnolence Code(s): G47.10 - HYPERSOMNIA, UNSPECIFIED (7) Hypoglycemia Code(s): E16.2 - HYPOGLYCEMIA, UNSPECIFIED (8) Lumbago Code(s): M54.5 - LOW BACK PAIN Qualifiers: Chronicity: chronic Back pain laterality: midline Sciatica presence: without sciatica Qualified Code(s): M54.5 - Low back pain; G89.29 - Other chronic pain (9) Chronic anemia Code(s): D64.9 - ANEMIA, UNSPECIFIED (10) DM type 2 (diabetes mellitus, type 2) Code(s): E11.9 - TYPE 2 DIABETES MELLITUS WITHOUT COMPLICATIONS (11) GERD (gastroesophageal reflux disease) Code(s): K21.9 - GASTRO-ESOPHAGEAL REFLUX DISEASE WITHOUT ESOPHAGITIS (12) HTN (hypertension) Code(s): I10 - ESSENTIAL (PRIMARY) HYPERTENSION (13) CAD (coronary artery disease) Code(s): I25.10 - ATHSCL HEART DISEASE OF [place] CORONARY ARTERY W/O ANG PCTRS Assessment/Plan presented with anemia teague weakness, Guiac negative as per er ASHD s/p RAFITA Xience mLAD and dLAD 2010 dr. Monterroso CHF systolic 2010 DM 1989 EF 69% on ECHO October 2011 HTN Hyperlipidemia Negative MIBI stress test 2013, 2015 DIRECTOR PATIENT/Stent of the right mid superficial femoral artery February 25, 2014 Dr. Monterroso Plan d/c Plavix cont asa prbc transfused f/iu hct Hematology consult re anemia w/u
[2018-09-06 10:00] LABS: ALBUMIN 2.2 g/dl (3.4-5.0); ALK PHOS 64 U/L (45-117); ANION GAP 8 MMOL/L (8-16); BILIRUBIN,TOTAL 0.7 mg/dL (0.2-1); BLOOD UREA NITROGEN 17 mg/dL (7-18); CALCIUM 8.8 mg/dL (8.5-10.1); CHLORIDE 104 mmol/L (98-107); CO2 26 mmol/L (21-32); CREATININE 0.9 mg/dL (0.55-1.3); GLUCOSE,RANDOM 96 mg/dL (74-106); PHOSPHOROUS 3.7 mg/dL (2.5-4.9); POTASSIUM 4.3 mmol/L (3.5-5.1); SGOT/AST 7 U/L (15-37); SGPT/ALT < 6 U/L (13-61); SODIUM 138 mmol/L (136-145); TOT PROT 6.1 g/dl (6.4-8.2)
[2018-09-06] MEDS ORDERED: CLOPIDOGREL BISULFATE 75 MG TABLET (FP) PO SCH (10:00)
[2018-09-06] MEDS ORDERED: PT OWN MED DRAWER 7, Y5N ONE (10:30)
[2018-09-06] MEDS ORDERED: cefTRIAXone SODIUM 1 GM VIAL ONE (10:37)
[2018-09-06] MEDS ORDERED: DEXTROSE 5%-WATER - 50 ML IVPB ONE (10:38)
[2018-09-06] MEDS: ASPIRIN 81 MG CHEWABLE TABLETS PO SCH (10:39)
[2018-09-06] MEDS ORDERED: CEFTRIAXONE 1 GM in DEXTROSE 5%-WATER - 50 ML IVPB ONE (10:45)
[2018-09-06] MEDS: IRON POLYSACCHARIDES 150 MG CAPSULE PO SCH (11:38)
--- NOTE | 2018-09-06 14:07 | PN ---
Progress Note (short form) - Note Progress Note: asymptomatic. states she had no symptoms yesterday and was instructed to come by her PMD for low blood counts seen on routine labs. denies CP, SOB, fever, chills, N/V/C/D, dysuria, urinary frequnecy states she has black stools but this is chronic since being placed on iron supplements had colonoscopy 3 years ago and reports it as normal Current Medications Generic Name Dose Route Start Last Admin Trade Name Steffanie PRN Reason Stop Dose Admin Acetaminophen 650 mg 09/05/18 20:21 Tylenol - PO Q4H PRN PAIN LEVEL 6-10 Amlodipine Besylate 5 mg 09/06/18 10:00 09/06/18 09:36 Norvasc - PO 5 mg DAILY [facility] Administration Aspirin 81 mg 09/06/18 10:00 09/06/18 10:39 Asa - PO 81 mg DAILY [facility] Administration Atorvastatin Calcium 20 mg 09/06/18 22:00 Lipitor - PO HS [facility] Enalapril Maleate 20 mg 09/06/18 10:00 09/06/18 09:36 Vasotec - PO 20 mg DAILY [facility] Administration Folic Acid 1 mg 09/06/18 10:00 09/06/18 09:36 Folic Acid - PO 1 mg DAILY [facility] Administration Insulin Aspart 1 vial 09/05/18 22:00 09/06/18 13:02 Novolog Vial Sliding Scale - SQ 4 unit ACHS [facility] Administration Protocol Methocarbamol 500 mg 09/06/18 10:00 09/06/18 09:36 Robaxin - PO 500 mg DAILY [facility] Administration Metoprolol Tartrate 50 mg 09/06/18 10:00 09/06/18 09:36 Lopressor - PO 50 mg DAILY [facility] Administration Pantoprazole Sodium 20 mg 09/06/18 10:00 09/06/18 09:36 Protonix - PO 20 mg DAILY [facility] Administration Polysaccharide Iron Complex 150 mg 09/06/18 10:00 09/06/18 11:38 Niferex-150 - PO 150 mg DAILY [facility] Administration Last Vital Signs Temp Pulse Resp BP Pulse Ox 98.2 F 88 16 152/75 98 09/06/18 09:00 09/06/18 09:00 09/06/18 09:00 09/06/18 09:00 09/06/18 02:57 General NAD CV S1 S2 RRR no murmur/rub/gallop Lungs CTA B/L no wheezing/rales/rhonchi Abdomen soft NT/ND CBCD WBC 7.0 K/mm3 (4.0-10.0) 09/06/18 08:00 RBC 3.35 M/mm3 (3.60-5.2) L 09/06/18 08:00 Hgb 8.0 GM/dL (10.7-15.3) L 09/06/18 08:00 Hct 24.1 % (32.4-45.2) L 09/06/18 08:00 MCV 72.1 fl (80-96) L 09/06/18 08:00 MCHC 33.3 g/dl (32.0-36.0) 09/06/18 08:00 RDW 20.0 % (11.6-15.6) H 09/06/18 08:00 Plt Count 369 K/MM3 (134-434) 09/06/18 08:00 MPV 7.2 fl (7.5-11.1) L 09/06/18 08:00 CMP Sodium 138 mmol/L (136-145) 09/06/18 08:00 Potassium 4.3 mmol/L (3.5-5.1) 09/06/18 08:00 Chloride 104 mmol/L (98-107) 09/06/18 08:00 Carbon Dioxide 26 mmol/L (21-32) 09/06/18 08:00 Anion Gap 8 MMOL/L (8-16) 09/06/18 08:00 BUN 17 mg/dL (7-18) 09/06/18 08:00 Creatinine 0.9 mg/dL (0.55-1.3) 09/06/18 08:00 Creat Clearance w eGFR 59.80 (>60) 09/06/18 08:00 Calcium 8.8 mg/dL (8.5-10.1) 09/06/18 08:00 Total Bilirubin 0.7 mg/dL (0.2-1) 09/06/18 08:00 AST 7 U/L (15-37) L 09/06/18 08:00 ALT < 6 U/L (13-61) L 09/06/18 08:00 Alkaline Phosphatase 64 U/L (45-117) 09/06/18 08:00 Total Protein 6.1 g/dl (6.4-8.2) L 09/06/18 08:00 Albumin 2.2 g/dl (3.4-5.0) L 09/06/18 08:00 A/P 82yo F wtih PMH CAD s/p stents, HTN, dyslipidemia, CKD sent to the ER for anemia 1. ANemia- did not have appropriate response to 1 unit PRBC. will transfuse 1 unit PRBC and repeat CBC. pt is not interested in having an anemia workup done. refuses colonoscopy or repeat FOBT even after 1 that was negative. explained this is not confirmatory that she is not really bleeding. 2. +UTI- is asymptomatic. will d/c abx. 3. can d/c after 2nd unit PRBC if hgb is improved.
--- NOTE | 2018-09-06 14:41 | EKG ---
Test Reason : Blood Pressure : / mmHG Vent. Rate : 092 BPM Atrial Rate : 092 BPM P-R Int : 162 ms QRS Dur : 104 ms QT Int : 396 ms P-R-T Axes : 102 -13 037 degrees QTc Int : 489 ms POOR DATA QUALITY, INTERPRETATION MAY BE ADVERSELY AFFECTED SINUS RHYTHM WITH PREMATURE SUPRAVENTRICULAR COMPLEXES OTHERWISE NORMAL ECG Confirmed by Carlos Redman MD ([id number]) on 09/06/2018 2:41:34 PM Referred By: Confirmed By:Carlos Redman MD
[2018-09-06 18:53] LABS: HEMATOCRIT 31.5 % (32.4-45.2); HEMOGLOBIN 10.5 GM/dL (10.7-15.3); MCH 25.3 pg (25.7-33.7); MCHC 33.5 g/dl (32.0-36.0); MEAN CELL VOLUME 75.5 fl (80-96); MEAN PLT VOLUME 7.2 fl (7.5-11.1); PLATELET COUNT 388 K/MM3 (134-434); RBC 4.17 M/mm3 (3.60-5.2); RDW 21.6 % (11.6-15.6); WHITE BLOOD COUNT 6.8 K/mm3 (4.0-10.0)
--- NOTE | 2018-09-06 18:57 | CON.GI ---
Consult Consult Specialty:: GI: Dr. Fine covering for Dr. Moore Referred by:: Hospitalist Service Reason for Consultation:: Anemia - History of Present Illness Chief Complaint: Abnormal lab value History of Present Illness: 82F admitted through [facility] ER after outpatient blood work revealed her to be anemic. Per primary team note today, Ms. Rosenthal refuses furher work-up regarding her anemia, however GI consult was called. Her Hgb on admission was 7.8. Today her Hgb is 8. It is a microcytic anemia and labs from 01/11/18 revealed a hgb of 11.3. She is followed by Dr. Moore, who performed outpatient colonoscopy 06/05/16 that revealed a redundant colon and mild diverticulosis. The indication for the colonoscopy was for a history of colon polyps. Her family believes that she may have had an upper endoscopy performed by him as well, however, there was no record of this in the [email or web address] system. She denies focal GI complaints. There has been no overt melena or rectal bleeding. She denies a change in bowel habits. Stool specimen sent yesterday revealed guaiac negative stool. There is no family history of colorectal cancer or other GI malignancy. - History Source History Provided By: Patient, Family Member (daughters and niece present) Limitations to Obtaining History: No Limitations - Past Medical History Cardio/Vascular: Yes: CAD, HTN, Hyperlipdemia Gastrointestinal: Yes: Diverticulosis Endocrine: Yes: Diabetes Mellitus (DM II) - Past Surgical History Additional Surgical History: Cardiac stents 2012 - Alcohol/Substance Use Hx Alcohol Use: No - Smoking History Smoking history: Never smoked Have you smoked in the past 12 months: No Aproximately how many cigarettes per day: 0 - Social History Usual Living Arrangement: Alone () ADL: Independent 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 Place of : [facility] History of Recent Travel: No Home Medications - Allergies Allergies/Adverse Reactions: Allergies Allergy/AdvReac Type Severity Reaction Status Date / Time No Known Allergies Allergy Verified 09/05/18 15:18 - Home Medications Home Medications: Ambulatory Orders Amlodipine Besylate [Norvasc -] 5 mg PO DAILY 09/05/18 Enalapril Maleate [Vasotec] 20 mg PO DAILY 09/05/18 Folic Acid 1 mg PO DAILY 09/05/18 Iron Polysaccharides [Niferex-150 -] 150 mg PO DAILY 09/05/18 Methocarbamol 500 mg PO DAILY 09/05/18 Metoprolol Tartrate [Lopressor -] 50 mg PO DAILY 09/05/18 Omeprazole 20 mg PO DAILY 09/05/18 Simvastatin 40 mg PO DAILY 09/05/18 Aspirin [ASA -] 81 mg PO DAILY #30 tab.chew 09/06/18 Family Disease History - Family Disease History Family Disease History: Other: Father (: 76: possible cancer), Mother ( : 74: PNA), Brother (1), Sister (2, 1 from CHF), Son (2, healthy), Daughter (3, 1 with PVD, HTN) Other Family History: No family history of colorectal cancer or other GI malignancy Review of Systems - Review of Systems Constitutional: denies: Unintentional Wgt. Loss Cardiovascular: denies: Chest Pain Respiratory: denies: Cough Gastrointestinal: denies: Abdominal Pain, Bloating, Constipation, Diarrhea, Melena, Nausea, Vomiting, Vomiting Blood Physical Exam-GI Vital Signs: Vital Signs Temperature 98.2 F 09/06/18 15:23 Pulse Rate 88 09/06/18 15:23 Respiratory Rate 17 09/06/18 15:23 Blood Pressure 130/85 09/06/18 15:23 O2 Sat by Pulse Oximetry (%) 98 09/06/18 02:57 Constitutional: Yes: Calm Eyes: No: Sclera Icterus Cardiovascular: Yes: Regular Rate and Rhythm. No: Murmur Respiratory: Yes: CTA Bilaterally Gastrointestinal Inspection: No: Distention, Scars ...Auscultate: Yes: Normoactive Bowel Sounds ...Palpate: Yes: Soft, Tenderness. No: Hepatomegaly, Splenomegaly ...Percussion: No: Tympanitic ...Rectal Exam: Yes: Other (Refused by patient) Edema: No (No LE edema) Neurological: Yes: Alert Labs: Hepatic Panel Total Bilirubin 0.7 mg/dL (0.2-1) 09/06/18 08:00 AST 7 U/L (15-37) L 09/06/18 08:00 ALT < 6 U/L (13-61) L 09/06/18 08:00 Alkaline Phosphatase 64 U/L (45-117) 09/06/18 08:00 Albumin 2.2 g/dl (3.4-5.0) L 09/06/18 08:00 CBC, BMP 09/06/18 08:00 INR, PTT INR 1.24 (0.83-1.09) H 09/05/18 15:29 Problem List - Problems (1) Anemia Assessment/Plan: At this point Ms. Rosenthal refluses further workup. She refused rectal exam this evening as well. Her family is aware. I explained that if she is amenable to further testing EGD and repeat colonoscopy could be undertaken to further evaluate her worsened anemia. Dr. Moore resumes care 09/08 and she can follow-up with him as an outpatient Code(s): D64.9 - ANEMIA, UNSPECIFIED Qualifiers: Anemia type: unspecified type Qualified Code(s): D64.9 - Anemia, unspecified
[2018-09-06] MEDS ORDERED: ATORVASTATIN CA 20 MG TABLET (FP) PO SCH (22:00)
[2018-09-07 02:02] LABS: BASO % 0.6 % (0-2.0); HEMATOCRIT 29.8 % (32.4-45.2); LYMPH % 21.6 % (8-40); MCHC 33.6 g/dl (32.0-36.0); MEAN CELL VOLUME 74.4 fl (80-96); MEAN PLT VOLUME 7.1 fl (7.5-11.1); NEUT % 68.8 % (42.8-82.8); PLATELET COUNT 352 K/MM3 (134-434); RDW 21.4 % (11.6-15.6); RETICULOCYTES 1.35 % (0.5-1.5); WHITE BLOOD COUNT 5.6 K/mm3 (4.0-10.0)
[2018-09-07 05:43] LABS: ANISOCYTOSIS 3+
[2018-09-07] MEDS: INSULIN SLIDING SCALE (NOVOLOG) 1 VIAL SQ SCH ×2 (06:00→11:27)
[2018-09-07 07:58] VITALS: BP 166/88; PULSE 85; TEMP 97.8
[2018-09-07 08:06] LABS: SERUM IRON SATURATION 23 % (15-55); TOTAL IRON BINDING CAPACITY 139 ug/dL (250-450); UIBC 107 ug/dL (118-369)
[2018-09-07] MEDS ORDERED: CEFTRIAXONE 1 GM in DEXTROSE 5%-WATER - 50 ML IVPB ONE (08:32)
[2018-09-07] MEDS: ASPIRIN 81 MG CHEWABLE TABLETS PO SCH (09:00)
[2018-09-07] MEDS: amLODIPine BESYLATE 5 MG TABLET (FP) PO SCH (09:00)
[2018-09-07] MEDS: METHOCARBAMOL 500 MG TABLET PO SCH (09:00)
[2018-09-07] MEDS: FOLIC ACID 1 MG TABLET (FP) PO SCH (09:00)
[2018-09-07] MEDS: METOPROLOL TARTRATE 50 MG TABLET (FP) PO SCH (09:00)
[2018-09-07] MEDS: ENALAPRIL MALEATE 10 MG TABLET (FP) PO SCH (09:00)
[2018-09-07] MEDS: PANTOPRAZOLE 20 MG TABLET (FP) PO SCH (09:01)
[2018-09-07] MEDS ORDERED: cefTRIAXone SODIUM 1 GM VIAL ONE (09:06)
[2018-09-07] MEDS: IRON POLYSACCHARIDES 150 MG CAPSULE PO SCH (09:20)
--- NOTE | 2018-09-07 10:00 | PN ---
Progress Note, Physician History of Present Illness: Patient is an 82 yo F with a PMHx DM, GERD, arthritis, CAD on ASA, Plavix (s/p stent 6 years ago), was sent by her maintenance supervisor (Dr. Moss) because of a Hgb level of 7.8 in the office. Patient denies any symptoms except for SOB on exertion, which she said was chronic. Patient said she's had anemia for many years but it was never this bad. She is taking iron pills daily at home. She said she had a normal colonoscopy and endoscopy about 3 years ago which did not reveal anything. Patient says she's been having dark stools ever since starting iron years ago. She denies hematemasis, hematochezia,palpitations, chest pain, lightheadedness, syncope, JEAN, leg swelling, nausea, vomiting, fevers, chills. ER course was notable for: (1) Hgb 7.8 PMH ASHD s/p RAFITA Xience mLAD and dLAD 2010 dr. Monterroso CHF systolic 2010 DM 1989 EF 69% on ECHO October 2011 HTN Hyperlipidemia Negative MIBI stress test 2013, 2015 [employer]/Stent of the right mid superficial femoral artery February 25, 2014 Dr. Monterroso - Current Medication List Current Medications: Active Medications Acetaminophen (Tylenol -) 650 mg PO Q4H PRN PRN Reason: PAIN LEVEL 6-10 Amlodipine Besylate (Norvasc -) 5 mg PO DAILY [facility] Last Admin: 09/07/18 09:00 Dose: 5 mg Aspirin (Asa -) 81 mg PO DAILY [facility] Last Admin: 09/07/18 09:00 Dose: 81 mg Atorvastatin Calcium (Lipitor -) 20 mg PO HS [facility] Last Admin: 09/06/18 21:03 Dose: 20 mg Enalapril Maleate (Vasotec -) 20 mg PO DAILY [facility] Last Admin: 09/07/18 09:00 Dose: 20 mg Folic Acid (Folic Acid -) 1 mg PO DAILY [facility] Last Admin: 09/07/18 09:00 Dose: 1 mg Insulin Aspart (Novolog Vial Sliding Scale -) 1 vial SQ ACHS [facility]; Protocol Last Admin: 09/07/18 06:00 Dose: Not Given Methocarbamol (Robaxin -) 500 mg PO DAILY [facility] Last Admin: 09/07/18 09:00 Dose: 500 mg Metoprolol Tartrate (Lopressor -) 50 mg PO DAILY [facility] Last Admin: 09/07/18 09:00 Dose: 50 mg Pantoprazole Sodium (Protonix -) 20 mg PO DAILY [facility] Last Admin: 09/07/18 09:01 Dose: 20 mg Polysaccharide Iron Complex (Niferex-150 -) 150 mg PO DAILY [facility] Last Admin: 09/07/18 09:20 Dose: 150 mg - Objective Vital Signs: Vital Signs Temperature 97.8 F 09/07/18 07:56 Pulse Rate 85 09/07/18 07:56 Respiratory Rate 18 09/07/18 07:56 Blood Pressure 166/88 09/07/18 07:56 O2 Sat by Pulse Oximetry (%) 95 09/06/18 23:26 Eyes: Yes: WNL, Conjunctiva Clear, EOM Intact HENT: Yes: WNL, Atraumatic, Normocephalic Neck: Yes: WNL, Supple, Trachea Midline Cardiovascular: Yes: WNL, Regular Rate and Rhythm Respiratory: Yes: WNL, Regular, CTA Bilaterally Gastrointestinal: Yes: WNL, Normal Bowel Sounds Genitourinary: Yes: WNL Musculoskeletal: Yes: WNL Extremities: Yes: WNL Edema: No Integumentary: Yes: WNL Neurological: Yes: WNL, Alert, Oriented ...Motor Strength: WNL Psychiatric: Yes: WNL Labs: CBC, BMP 09/07/18 01:30 09/06/18 08:00 INR, PTT INR 1.24 (0.83-1.09) H 09/05/18 15:29 Problem List - Problems (1) Anemia Code(s): D64.9 - ANEMIA, UNSPECIFIED Qualifiers: Anemia type: unspecified type Qualified Code(s): D64.9 - Anemia, unspecified (2) AZRA (acute kidney injury) Code(s): N17.9 - ACUTE KIDNEY FAILURE, UNSPECIFIED (3) Arm pain, musculoskeletal Code(s): M79.603 - PAIN IN ARM, UNSPECIFIED Qualifiers: Laterality: unspecified laterality Qualified Code(s): M79.603 - Pain in arm , unspecified (4) Bilateral thigh pain Code(s): M79.651 - PAIN IN RIGHT THIGH; M79.652 - PAIN IN LEFT THIGH (5) Elevated CK Code(s): R74.8 - ABNORMAL LEVELS OF OTHER SERUM ENZYMES (6) Hypersomnolence Code(s): G47.10 - HYPERSOMNIA, UNSPECIFIED (7) Hypoglycemia Code(s): E16.2 - HYPOGLYCEMIA, UNSPECIFIED (8) Lumbago Code(s): M54.5 - LOW BACK PAIN Qualifiers: Chronicity: chronic Back pain laterality: midline Sciatica presence: without sciatica Qualified Code(s): M54.5 - Low back pain; G89.29 - Other chronic pain (9) Chronic anemia Code(s): D64.9 - ANEMIA, UNSPECIFIED (10) DM type 2 (diabetes mellitus, type 2) Code(s): E11.9 - TYPE 2 DIABETES MELLITUS WITHOUT COMPLICATIONS (11) GERD (gastroesophageal reflux disease) Code(s): K21.9 - GASTRO-ESOPHAGEAL REFLUX DISEASE WITHOUT ESOPHAGITIS (12) HTN (hypertension) Code(s): I10 - ESSENTIAL (PRIMARY) HYPERTENSION (13) CAD (coronary artery disease) Code(s): I25.10 - ATHSCL HEART DISEASE OF [place] CORONARY ARTERY W/O ANG PCTRS Assessment/Plan presented with anemia teague weakness, Guiac negative as per er ASHD s/p RAFITA Xience mLAD and dLAD 2010 dr. Monterroso CHF systolic 2010 DM 1989 EF 69% on ECHO October 2011 HTN Hyperlipidemia Negative MIBI stress test 2013, 2015 [employer]/Stent of the right mid superficial femoral artery February 25, 2014 Dr. Monterroso Plan d/c Plavix cont asa for now monitor HCT prbc transfused f/iu hct Hematology consult re anemia w/u patient refuses GI or hematology w/u Decision regarding safety of ASA has to be discussed.
--- NOTE | 2018-09-07 11:54 | PN ---
Teaching Attending Note Name of Resident: Дмитрий Barrett ATTENDING PHYSICIAN STATEMENT I saw and evaluated the patient. I reviewed the resident's note and discussed the case with the resident. I agree with the resident's findings and plan as documented. SUBJECTIVE:asymptomatic. denies Cp, SOB, fever, chills, N/V/C/D, dysuria OBJECTIVE: Last Vital Signs Temp Pulse Resp BP Pulse Ox 97.8 F 85 18 166/88 95 09/07/18 07:56 09/07/18 07:56 09/07/18 07:56 09/07/18 07:56 09/06/18 23:26 General NAD A&O x3 CV S1 S2 + Abdomen soft NT/ND no suprapubic tenderness ASSESSMENT AND PLAN: 82yo F wtih PMH CAD s/p stents, HTN, dyslipidemia, CKD sent to the ER for anemia 1. ANemia-s/p 2 units PRBC with appropriate response. had conversation with granddaughter, Cherelle, yesterday who reported was having melena prior to initiation of iron supplements which started last week therefor GI was consulted. however patient is refusing any further workup at this time. states she does not want a colonoscopy. 2. +UTI- as per granddaughter she has been having urinary frequency, although patient denies it. abx was re-started this am but now UCx is contaminated but only 50-60K colonies therefore likely not a UTI. will d/c abx. 3. Depression- anastacio expresses that shes been exhibiting ahedonia with reduced appetite since Feb 2018, been expressing she is saddened as many of her family members have passed this past year (mostly of old age). pt is likely depressed and recommend following up with PMD and/or psychiatrist for initiation of antidepressants 3. d/c home today. long discussion with granddaughter expressed a lot of very vague concerns and seemingly a slow progressive decline over the past 8 months. recommend following up with PMD and initiating treatment for depression,
--- NOTE | 2018-09-07 13:01 | DS ---
Physical Exam: SUBJECTIVE: Patient seen and examined OBJECTIVE: Vital Signs Period Temp Pulse Resp BP Sys/Erazo Pulse Ox Last 24 Hr 97.8 F-99.2 F 70-89 17-20 130-166/64-88 95 PHYSICAL EXAM GENERAL: The patient is awake, alert, and fully oriented, in no acute distress. HEAD: Normal with no signs of trauma. EYES: PERRL, extraocular movements intact, sclera anicteric, conjunctiva clear. ENT: Ears normal, nares patent, oropharynx clear without exudates, moist mucous membranes. NECK: Trachea midline, full range of motion, supple. LUNGS: Breath sounds equal, clear to auscultation bilaterally, no wheezes, no crackles, no accessory muscle use. HEART: Regular rate and rhythm, S1, S2 without murmur, rub or gallop. ABDOMEN: Soft, nontender, nondistended, normoactive bowel sounds, no guarding, no rebound, no hepatosplenomegaly, no masses. EXTREMITIES: 2+ pulses, warm, well-perfused, no edema. NEUROLOGICAL: Cranial nerves II through XII grossly intact. Normal speech, gait not observed. PSYCH: Normal mood, normal affect. SKIN: Warm, dry, normal turgor, no rashes or lesions noted. LABS Laboratory Results - last 24 hr 09/06/18 09/06/18 09/06/18 01:03 01:03 13:01 WBC RBC Hgb Hct MCV MCH MCHC RDW Plt Count MPV Absolute Neuts (auto) Neutrophils % Lymphocytes % Monocytes % Eosinophils % Basophils % Nucleated RBC % Hypochromia Anisocytosis Microcytosis Retic Count POC Glucometer 221 Iron 32 TIBC 139 L Iron Saturation 23 Transferrin 118 L 09/06/18 09/06/18 09/06/18 16:45 18:20 20:58 WBC 6.8 RBC 4.17 Hgb 10.5 L Hct 31.5 L D MCV 75.5 L MCH 25.3 L MCHC 33.5 RDW 21.6 H Plt Count 388 MPV 7.2 L Absolute Neuts (auto) Neutrophils % Lymphocytes % Monocytes % Eosinophils % Basophils % Nucleated RBC % Hypochromia Anisocytosis Microcytosis Retic Count POC Glucometer 115 251 Iron TIBC Iron Saturation Transferrin 09/07/18 09/07/18 09/07/18 01:30 05:57 11:25 WBC 5.6 RBC 4.00 Hgb 10.0 L Hct 29.8 L MCV 74.4 L MCH 25.0 L MCHC 33.6 RDW 21.4 H Plt Count 352 MPV 7.1 L Absolute Neuts (auto) 3.8 Neutrophils % 68.8 Lymphocytes % 21.6 D Monocytes % 9.0 Eosinophils % 0.0 Basophils % 0.6 Nucleated RBC % 0 Hypochromia 1+ Anisocytosis 3+ Microcytosis 2+ Retic Count 1.35 POC Glucometer 139 207 Iron TIBC Iron Saturation Transferrin HOSPITAL COURSE: Date of Admission:09/05/18 Date of Discharge: 09/07/18 Discharge Summary Reason For Visit: ANEMIA Current Active Problems Anemia (Acute) DM type 2 (diabetes mellitus, type 2) (Chronic) GERD (gastroesophageal reflux disease) (Chronic) HTN (hypertension) (Chronic) Condition: Good - Instructions Diet, Activity, Other Instructions: You were observed in the hospital due to your blood counts being low which caused the symptoms you felt. You received 2 units of blood during your hospital stay. You declined having further workup done to determine why your blood counts are low. If you would like to have further workup done please follow up with a financial services technician and/or a rail specialist. Referrals been provided for both in the paperwork MEDICATIONS: Please stop taking your Plavix for now. You have been started on baby aspirin (81mg) instead. A script has been sent to your pharmacy. Please continue the rest of your home medications Follow-up: Please see your primary care doctor next week to repeat your blood counts ( CBC). You should also talk to your doctor if you are feeling saddened moods or if things you once enjoy no longer cause you enjoyment. He may be able to recommend something to help or a therapist as well. You will need to have a colonoscopy/endoscopy eventually if you are willing to do so. A rail specialist's information has been provided in case you would like to pursue further workup for your low blood counts. If you develop chest pain, shortness of breath, notice any bleeding, or excessive lightheadedness please return to the ER as soon as possible Referrals: Bennett Moore MD [Staff Physician] - Tj Morales [Primary Care Provider] - Disposition: HOME - Home Medications Comprehensive Discharge Medication List: Ambulatory Orders Amlodipine Besylate [Norvasc -] 5 mg PO DAILY 09/05/18 Enalapril Maleate [Vasotec] 20 mg PO DAILY 09/05/18 Folic Acid 1 mg PO DAILY 09/05/18 Iron Polysaccharides [Niferex-150 -] 150 mg PO DAILY 09/05/18 Methocarbamol 500 mg PO DAILY 09/05/18 Metoprolol Tartrate [Lopressor -] 50 mg PO DAILY 09/05/18 Omeprazole 20 mg PO DAILY 09/05/18 Simvastatin 40 mg PO DAILY 09/05/18 Aspirin [ASA -] 81 mg PO DAILY #30 tab.chew 09/06/18
== END 2018-09-07 14:36 | disposition home health service (06) ==
LOC: JER 15:10 → JERBED 17:33 → J8W 09-06 02:34
PROVIDERS: ADMIT Internal Medicine; ATTEND Internal Medicine
PROC: 30233N1 Transfusion of Nonautologous Red Blood Cells into Peripheral Vein, Percutaneous Approach (ICD-10-PCS; principal; 2018-09-05)
PROC: 3E03329 Introduction of Other Anti-infective into Peripheral Vein, Percutaneous Approach (ICD-10-PCS; 2018-09-05)
PROC: 3E0337Z Introduction of Electrolytic and Water Balance Substance into Peripheral Vein, Percutaneous Approach (ICD-10-PCS; 2018-09-05)
PROC: 3E013VG Introduction of Insulin into Subcutaneous Tissue, Percutaneous Approach (ICD-10-PCS; 2018-09-05)
DX: D50.8 Other iron deficiency anemias (principal); N39.0 Urinary tract infection, site not specified; I10 Essential (primary) hypertension; E78.5 Hyperlipidemia, unspecified; E11.9 Type 2 diabetes mellitus without complications; I25.10 Atherosclerotic heart disease of native coronary artery without angina pectoris; M19.90 Unspecified osteoarthritis, unspecified site; K21.9 Gastro-esophageal reflux disease without esophagitis; N17.9 Acute kidney failure, unspecified; M79.603 Pain in arm, unspecified; M79.651 Pain in right thigh; M79.652 Pain in left thigh; R74.8 Abnormal levels of other serum enzymes; G47.10 Hypersomnia, unspecified; E16.2 Hypoglycemia, unspecified; M54.5 Low back pain; G89.29 Other chronic pain; Z95.5 Presence of coronary angioplasty implant and graft; Z79.01 Long term (current) use of anticoagulants; Z79.82 Long term (current) use of aspirin
CPT/HCPCS: 36415; 36430; 36511; 80053; 81003; 81015; 82272; 82607; 82728; 82962; 83540; 83550; 83735; 84100; 84466; 84484; 85025; 85027; 85044; 85610; 86850; 86900; 86901; 86922; 87086; 93005; 93010; 96365; 96367; 96372; 99284-25; G0378; P9038; P9058

== ENCOUNTER 2018-12-08 18:45 | Inpatient (IN) | payer OTHER ==
--- NOTE | 2018-12-08 18:57 | PDOC ---
Rapid Medical Evaluation Chief Complaint: Abnormal Lab Results (Outside) Time Seen by Provider: 12/08/18 18:57 Medical Evaluation: Allergies Allergy/AdvReac Type Severity Reaction Status Date / Time No Known Allergies Allergy Verified 12/08/18 18:55 12/08/18 18:57 I have performed a brief in-person evaluation of this patient. The patient presents with a chief complaint of: Sent in for Hgb of 7.4 on labs. No acute sxs per pt. H/o HTN, HLD, CAD w/ stents, CKD, ALEXANDRO, s/p admission for anemia/transfusion 08/2018, pt refused scope them. Hgb on discharge 09/07/18 was 10. (baseline 10-11 per records) Pertinent physical exam findings:appears ?pale, stable by vitals I have ordered the following:labs The patient will proceed to the ED for further evaluation. 12/08/18 19:01 Discharge Disposition - Diagnosis Anemia Qualifiers: Anemia type: iron deficiency Iron deficiency anemia type: unspecified iron deficiency Qualified Code(s): D50.9 - Iron deficiency anemia, unspecified - Referrals - Patient Instructions - Post Discharge Activity
[2018-12-08 18:59] VITALS: BMI 26.4
[2018-12-08 19:39] LABS: BASO % 0.6 % (0-2.0); HEMATOCRIT 24.8 % (32.4-45.2); HEMOGLOBIN 7.7 GM/dL (10.7-15.3); LYMPH % 30.4 % (8-40); MCH 23.6 pg (25.7-33.7); MCHC 31.1 g/dl (32.0-36.0); MEAN PLT VOLUME 7.1 fl (7.5-11.1); MONO % 3.9 % (3.8-10.2); NEUT % 65.1 % (42.8-82.8); PLATELET COUNT 314 K/MM3 (134-434); RBC 3.26 M/mm3 (3.60-5.2); RDW 23.3 % (11.6-15.6); WHITE BLOOD COUNT 5.5 K/mm3 (4.0-10.0)
[2018-12-08 19:58] LABS: ALBUMIN 2.8 g/dl (3.4-5.0); BILIRUBIN,TOTAL 0.3 mg/dL (0.2-1); CALCIUM 9.2 mg/dL (8.5-10.1); CREATININE 0.9 mg/dL (0.55-1.3); POTASSIUM 4.3 mmol/L (3.5-5.1); TOT PROT 7.3 g/dl (6.4-8.2)
[2018-12-08 20:03] LABS: INR 1.15 (0.83-1.09); PROTHROMBIN TIME (PATIENT) 13.6 SEC (9.7-13.0)
--- NOTE | 2018-12-08 20:28 | PDOC ---
History of Present Illness - General Chief Complaint: Abnormal Lab Results (Outside) Stated Complaint: LOW BLOOD COUNT Time Seen by Provider: 12/08/18 18:57 History Source: Patient Exam Limitations: No Limitations - History of Present Illness Initial Comments: 12/08/18 20:28 82 yo female pmh of anemia, HTN, HLD, s/p 1 cardiac stent (5 years ago, stopped plavix 08/2018, on ASA) diabetes and RA (tylenol and methotrexate) presents to the ED as per PCP, Dr. Morales, for hemoglobin in the 7s. Pt had blood drawn approx 3 weeks ago, informed today that she should go to the ER today for anemia. Last admission in 08/2018 was for anemia, stool occult blood neg, refused colonoscopy , received 2 units PRBC with DC hemoglobin of 10, baseline 11s. Last colonoscopy 05/2018 revealed a redundant colon and mild diverticulosis with a hx of polyps. There is no family history of colorectal cancer or other GI malignancy. Of note, pt started on methotrexate 6 weeks ago for RA, on iron pills, no NSAIDs. Family present state patient more pale recently and also spends most of her time in bed but is able to ambulate to the bathroom however they have noted pt requires more assistance recently. Denies excessive weakness , lethargy, abdominal pain, dark or bright red stools, F/C/N/V, back pain, changes in bowel or bladder habits, CP, SOB. GI Dr. Moore Cardiology Dr. Moss PCP Dr. Morales Past History - Past Medical History Allergies/Adverse Reactions: Allergies Allergy/AdvReac Type Severity Reaction Status Date / Time No Known Allergies Allergy Verified 12/08/18 18:55 Home Medications: Ambulatory Orders Amlodipine Besylate [Norvasc -] 5 mg PO DAILY 09/05/18 Enalapril Maleate [Vasotec] 20 mg PO DAILY 09/05/18 Folic Acid 1 mg PO DAILY 09/05/18 Iron Polysaccharides [Niferex-150 -] 150 mg PO DAILY 09/05/18 Metoprolol Tartrate [Lopressor -] 50 mg PO DAILY 09/05/18 Omeprazole 40 mg PO DAILY 09/05/18 Simvastatin 40 mg PO DAILY 09/05/18 Aspirin [ASA -] 81 mg PO DAILY #30 tab.chew 09/06/18 Methotrexate [Mexate -] 10 mg PO Q7D 12/08/18 Anemia: Yes Asthma: No Cancer: No Cardiac Disorders: Yes (CAD, s/p Stent 6 years ago) CVA: No COPD: No CHF: No Dementia: No Diabetes: Yes GI Disorders: Yes (GERD) Disorders: No HTN: Yes Hypercholesterolemia: Yes Liver Disease: Yes (HEPATIC CYST, COLON POLYP) Seizures: No Thyroid Disease: No - Surgical History Cardiac Surgery: Yes (2 STENT(1 TO HEART, 1 TO RT LEG)) - Immunization History Immunization Up to Date: Yes - Suicide/Smoking/Psychosocial Hx Smoking Status: No Smoking History: Never smoked Have you smoked in the past 12 months: No Number of Cigarettes Smoked Daily: 0 Hx Alcohol Use: No Drug/Substance Use Hx: No Substance Use Type: None Review of Systems - Review of Systems Constitutional: No: Chills, Fever HEENTM: No: Blurred Vision, Double Vision Respiratory: No: Shortness of Breath Cardiac (ROS): No: Chest Pain, Edema ABD/GI: No: Constipated, Diarrhea, Nausea, Vomiting : No: Burning, Dysuria, Discharge, Frequency Musculoskeletal: No: Back Pain Integumentary: Yes: Pallor Neurological: Yes: Weakness (generalized). No: Dizziness *Physical Exam - Vital Signs Last Vital Signs Temp Pulse Resp BP Pulse Ox 98.1 F 78 18 153/72 100 12/08/18 18:56 12/08/18 18:56 12/08/18 18:56 12/08/18 18:56 12/08/18 18:56 - Physical Exam General Appearance: Yes: Nourished, Appropriately Dressed. No: Apparent Distress HEENT: positive: EOMI, SABIHA Neck: positive: Supple. negative: Carotid bruit Respiratory/Chest: positive: Lungs Clear, Normal Breath Sounds. negative: Respiratory Distress, Rapid RR, Crackles, Rales, Rhonchi, Stridor, Wheezing Cardiovascular: positive: Regular Rhythm, Regular Rate, S1, S2. negative: Edema , JVD, Murmur Vascular Pulses: Dorsalis-Pedis (R): 4+, Doralis-Pedis (L): 4+ Gastrointestinal/Abdominal: positive: Flat, Soft. negative: Protuberent, Distended, Guarding, Rebound, Tenderness Musculoskeletal: negative: CVA Tenderness Extremity: positive: Normal Capillary Refill, Normal Inspection Integumentary: positive: Dry, Warm, Pale Neurologic: positive: Fully Oriented, Alert, Normal Mood/Affect, Normal Response ED Treatment Course - LABORATORY CBC & Chemistry Diagram: 12/08/18 19:31 12/08/18 19:31 - ADDITIONAL ORDERS Additional order review: Laboratory Results 12/08/18 12/08/18 19:31 19:31 PT with INR 13.60 H INR 1.15 H Sodium 136 Potassium 4.3 Chloride 101 Carbon Dioxide 27 Anion Gap 8 BUN 25 H Creatinine 0.9 Est GFR (CKD-EPI)AfAm 68.05 Est GFR (CKD-EPI)NonAf 58.71 Random Glucose 143 H Calcium 9.2 Total Bilirubin 0.3 AST 16 ALT 9 L Alkaline Phosphatase 81 Total Protein 7.3 Albumin 2.8 L 12/08/18 19:31 RBC 3.26 L MCV 76.0 L MCHC 31.1 L RDW 23.3 H MPV 7.1 L Neutrophils % 65.1 Lymphocytes % 30.4 D Monocytes % 3.9 Eosinophils % 0.0 Basophils % 0.6 *DC/Admit/Observation/Transfer Diagnosis at time of Disposition: Anemia Qualifiers: Anemia type: iron deficiency Iron deficiency anemia type: unspecified iron deficiency Qualified Code(s): D50.9 - Iron deficiency anemia, unspecified - Discharge Dispostion Condition at time of disposition: Stable Decision to Admit order: Yes - Referrals - Patient Instructions - Post Discharge Activity
[2018-12-08] MEDS ORDERED: PANTOPRAZOLE SODIUM 80 MG in SODIUM CHLORIDE 100 ML IVPB SCH (22:00)
[2018-12-08 22:08] LABS: EPI CELLS 17.2 /HPF (0-5/HPF); URINE APPEARANCE CLOUDY; URINE BACTERIA 657.3 /hpf (NEGATIVE); URINE BILIRUBIN NEGATIVE (NEGATIVE); URINE CASTS 8 /lpf (0-8); URINE COLOR YELLOW; URINE GLUCOSE (UA) NEGATIVE (NEGATIVE); URINE KETONE NEGATIVE (NEGATIVE); URINE LEUK ESTERASE 3+ (NEGATIVE); URINE NITRITE NEGATIVE (NEGATIVE); URINE PROTEIN NEGATIVE (NEGATIVE); URINE UROBILINOGEN 0.2 mg/dL (0.2-1.0); URINE WBC 39 /hpf (0-5)
[2018-12-08 22:11] LABS: URINE RBC 5.2 /hpf (0-4)
[2018-12-08] MEDS ORDERED: CEFTRIAXONE 1 GM in DEXTROSE 5%-WATER - 100 ML IVPB ONE (22:46)
[2018-12-08 22:47] LABS: ANISOCYTOSIS 3+; MACROCYTOSIS 1+; PLATELET ESTIMATE ADEQUATE
--- NOTE | 2018-12-08 22:50 | PN ---
Teaching Attending Note Name of Resident: Luanne Chiang ATTENDING PHYSICIAN STATEMENT I saw and evaluated the patient. I reviewed the resident's note and discussed the case with the resident. I agree with the resident's findings and plan as documented. SUBJECTIVE: Patient is an 82 year old woman with PMH of Anemia, HTN, HLD, s/p 1 cardiac stent (5 years ago, stopped plavix 08/2018, on ASA) NIDDM and Rheumatoid arthritis (tylenol and methotrexate) sent to the ER by her PCP, Dr. Morales, for hemoglobin in the 7s. She had blood drawn weeks ago, and was informed today that she should go to the ER for anemia. Last admission in 08/2018 was for anemia, stool occult blood negative; refused colonoscopy, got 2 units PRBC with hemoglobin of 10 on discharge. Last colonoscopy in 05/2018 revealed a redundant colon and mild diverticulosis with a history of polyps. There is no family history of colorectal cancer or other GI malignancy. She started Methotrexate 6 weeks ago for RA, is on iron pills and not on NSAID. Family says patient more pale recently and also spends most of her time in bed but is able to ambulate to the bathroom. They have noted that patient requires more assistance recently. Denies excessive abdominal pain, dark or bright red stools, fever, chills, nausea, vomiting, chest pain, SOB, CLAY, back pain, changes in bowel or bladder habits. OBJECTIVE: Alert Vital Signs Period Temp Pulse Resp BP Sys/Erazo Pulse Ox Last 24 Hr 98.1 F 78 18 153/72 100 HEENT: No Jaundice, eye redness or discharge, conjuctival pallor; PERRLA, EOMI. Normocephalic, atraumatic. External ears are normal and hearing is grossly intact. No nasal discharge. Neck: Supple, nontender. No palpable adenopathy or thyromegaly. No JVD Chest: Good effort. Clear to auscultation and percussion. Heart: Regular. No S3, rub or murmur Abdomen: Not distended, soft, nontender and no HSM. No rebound or guarding. Normal bowel sounds. Ext: Peripheral pulses intact. No leg edema. Skin: Warm and dry. No petechiae, rash or ecchymosis. Neuro: Alert. Oriented x3. CN 2-12 grossly intact. Sensation grossly intact in all four extremities and DTR are symmetric. Psych: Appropriate mood and affect. Good insight. Current Medications Generic Name Dose Route Start Last Admin Trade Name Steffanie PRN Reason Stop Dose Admin Pantoprazole Sodium 80 mg/ 100 mls @ 10 mls/hr 12/08/18 22:00 Sodium Chloride IVPB Q10H SHRUTHI 8 MG/HR Ceftriaxone Sodium 1 gm/ 100 mls @ 200 mls/hr 12/08/18 22:46 Dextrose IVPB 12/08/18 23:15 ONCE ONE Home Medications Medication Instructions Recorded Amlodipine Besylate [Norvasc -] 5 mg PO DAILY 09/05/18 Enalapril Maleate [Vasotec] 20 mg PO DAILY 09/05/18 Folic Acid 1 mg PO DAILY 09/05/18 Iron Polysaccharides [Niferex-150 150 mg PO DAILY 09/05/18 -] Metoprolol Tartrate [Lopressor -] 50 mg PO DAILY 09/05/18 Omeprazole 40 mg PO DAILY 09/05/18 Simvastatin 40 mg PO DAILY 09/05/18 Aspirin [ASA -] 81 mg PO DAILY #30 tab.chew 09/06/18 Methotrexate [Mexate -] 10 mg PO Q7D 12/08/18 Abnormal Lab Results 12/08/18 12/08/18 12/08/18 19:31 19:31 19:31 RBC 3.26 L Hgb 7.7 L Hct 24.8 L D MCV 76.0 L MCH 23.6 L MCHC 31.1 L RDW 23.3 H MPV 7.1 L PT with INR 13.60 H INR 1.15 H BUN 25 H Random Glucose 143 H ALT 9 L Albumin 2.8 L Ur Specific [place] Ur Leukocyte Esterase Crossmatch 12/08/18 12/08/18 19:31 21:48 RBC Hgb Hct MCV MCH MCHC RDW MPV PT with INR INR BUN Random Glucose ALT Albumin Ur Specific [place] 1.008 L Ur Leukocyte Esterase 3+ H Crossmatch See Detail ASSESSMENT AND PLAN: 1. Low MCV Anemia/UTI - Likely has GI blood loss with superimposed bone marrow suppression fro methotrexate. Initial stool guaiac was negative, but will repeat x 2. Will confirm iron deficiency, give IV venofer 500 mg x 2 doses. Patient being transfused one unit PRBC by the ER staff. Reconsult GI to consider outpatient colonoscopy. EKG shows NSR with no significant ST-T wave changes. Continue Protonix 40 mg IV q 12 hours. Urinalysis shows features of UTI though she has no specific symptoms of UTI. Had a similar urinary picture on 09/05/18 and the urine culture was negative. Will continue IV Rocephin for now, pending culture report. 2. Hypoalbuminemia - Possibly due to combined effects of malnutrition and inflammation associated with comorbid chronic conditions. Will ensure adequate dietary protein intake and also consult director [employer] sales. 3. Diet controlled DM? Will implement sliding scale insulin regimen. Provide comprehensive diabetes care with patient teaching and counseling about the importance of adherence to prescribed diabetes regimen, euglycemia, eye care and foot care. 4. Hypertension - Restart outpatient antihypertensive drugs and revise regimen to ensure smooth [id number] good BP control. Nonpharmacologic measures to control hypertension like weight loss, salt restriction and exercise discussed. 5. DVT prophylaxis - SCD, TEDs 6. Advance directives - Full code
[2018-12-08] MEDS ORDERED: cefTRIAXone SODIUM 1 GM VIAL ONE (23:30)
[2018-12-08] MEDS ORDERED: PANTOPRAZOLE SODIUM 40 MG VIAL ONE (23:31)
[2018-12-08] MEDS ORDERED: CEFTRIAXONE 1 GM/50 ML BAG ONE (23:31)
--- NOTE | 2018-12-08 23:31 | HP ---
CHIEF COMPLAINT: anemia PCP: Dr. Morales HISTORY OF PRESENT ILLNESS: Patient is an 83 yo F with a PMHx of HTN, HLD, s/p stent 5 years ago (on ASA), DM, RA, was sent by her PCP because of anemia. She had a CBC 3 weeks ago which showed a hemoglobin in the 7's and was told today to come to the ER to get a blood transfusion. She denies symptoms including SOB, fatigue, blood in stool but says she looks a little more pale than usual. She was also admitted in August for Anemia. Patient received 2 Units PRBC and was discharged. She refused further workup by GI including colonoscopy. After discharge she did not follow up with GI. Patient said she was sick of seeing doctors. Her last colonoscopy was 05/2016. She is currently taking iron pills at home. Patient was started on Methotrexate for her RA 6 weeks ago. Denies abdominal pain, dark or bright red stools, fever, chills, nausea, vomiting, chest pain, SOB, CLAY, back pain, changes in bowel or bladder habits. ER course was notable for: (1) 1 unit PRBC (2) ceftriaxone for +UA Recent Travel: denies PAST MEDICAL HISTORY: per HPI Social History: Smoking: denies Alcohol: denies Drugs: denies Allergies No Known Allergies Allergy (Verified 12/08/18 18:55) HOME MEDICATIONS: Home Medications Medication Instructions Recorded Amlodipine Besylate [Norvasc -] 5 mg PO DAILY 09/05/18 Enalapril Maleate [Vasotec] 20 mg PO DAILY 09/05/18 Folic Acid 1 mg PO DAILY 09/05/18 Iron Polysaccharides [Niferex-150 150 mg PO DAILY 09/05/18 -] Metoprolol Tartrate [Lopressor -] 50 mg PO DAILY 09/05/18 Omeprazole 40 mg PO DAILY 09/05/18 Simvastatin 40 mg PO DAILY 09/05/18 Aspirin [ASA -] 81 mg PO DAILY #30 tab.chew 09/06/18 Methotrexate [Mexate -] 10 mg PO Q7D 12/08/18 REVIEW OF SYSTEMS CONSTITUTIONAL: Absent: fever, chills, diaphoresis, generalized weakness, malaise, loss of appetite, weight change HEENT: Absent: rhinorrhea, nasal congestion, throat pain, throat swelling, difficulty swallowing, mouth swelling, ear pain, eye pain, visual changes CARDIOVASCULAR: Absent: chest pain, syncope, palpitations, irregular heart rate, lightheadedness , peripheral edema RESPIRATORY: Absent: cough, shortness of breath, dyspnea with exertion, orthopnea, wheezing, stridor, hemoptysis GASTROINTESTINAL: Absent: abdominal pain, abdominal distension, nausea, vomiting, diarrhea, constipation, melena, hematochezia GENITOURINARY: Absent: dysuria, frequency, urgency, hesitancy, hematuria, flank pain, genital pain MUSCULOSKELETAL: Absent: myalgia, arthralgia, joint swelling, back pain, neck pain SKIN: Absent: rash, itching, pallor HEMATOLOGIC/IMMUNOLOGIC: Absent: easy bleeding, easy bruising, lymphadenopathy, frequent infections ENDOCRINE: Absent: unexplained weight gain, unexplained weight loss, heat intolerance, cold intolerance NEUROLOGIC: Absent: headache, focal weakness or paresthesias, dizziness, unsteady gait, seizure, mental status changes, bladder or bowel incontinence PSYCHIATRIC: Absent: anxiety, depression, suicidal or homicidal ideation, hallucinations. PHYSICAL EXAMINATION Vital Signs - 24 hr 12/08/18 18:56 Temperature 98.1 F Pulse Rate 78 Respiratory 18 Rate Blood Pressure 153/72 O2 Sat by Pulse 100 Oximetry (%) GENERAL: Awake, alert, and fully oriented, in no acute distress. HEAD: Normal with no signs of trauma. EYES: Pupils equal, round and reactive to light, extraocular movements intact, pale conjunctiva EARS, NOSE, THROAT: oropharynx clear without exudates. Moist mucous membranes. NECK: supple without lymphadenopathy, JVD, or masses. LUNGS: Breath sounds equal, clear to auscultation bilaterally. No wheezes, and no crackles. No accessory muscle use. HEART: Regular rate and rhythm, normal S1 and S2 without murmur, rub or gallop. ABDOMEN: Soft, nontender, not distended, normoactive bowel sounds, no guarding, no rebound, no masses. LOWER EXTREMITIES: 2+ pulses, warm, well-perfused. No calf tenderness. No peripheral edema. NEUROLOGICAL: Cranial nerves II-XII intact. Normal speech. Normal gait. Refused rectal exam Laboratory Results - last 24 hr 12/08/18 12/08/18 12/08/18 19:31 19:31 19:31 WBC 5.5 RBC 3.26 L Hgb 7.7 L Hct 24.8 L D MCV 76.0 L MCH 23.6 L MCHC 31.1 L RDW 23.3 H Plt Count 314 MPV 7.1 L Absolute Neuts (auto) 3.6 Neutrophils % 65.1 Lymphocytes % 30.4 D Monocytes % 3.9 Eosinophils % 0.0 Basophils % 0.6 Nucleated RBC % 0 Hypochromia 2+ Platelet Estimate Adequate Anisocytosis 3+ Microcytosis 2+ Macrocytosis 1+ PT with INR 13.60 H INR 1.15 H Sodium 136 Potassium 4.3 Chloride 101 Carbon Dioxide 27 Anion Gap 8 BUN 25 H Creatinine 0.9 Est GFR (CKD-EPI)AfAm 68.05 Est GFR (CKD-EPI)NonAf 58.71 Random Glucose 143 H Calcium 9.2 Total Bilirubin 0.3 AST 16 ALT 9 L Alkaline Phosphatase 81 Total Protein 7.3 Albumin 2.8 L Urine Color Urine Appearance Urine pH Ur Specific [place] Urine Protein Urine Glucose (UA) Urine Ketones Urine Blood Urine Nitrite Urine Bilirubin Urine Urobilinogen Ur Leukocyte Esterase Urine WBC (Auto) Urine RBC (Auto) Urine Casts (Auto) U Epithel Cells (Auto) Urine Bacteria (Auto) Stool Occult Blood Blood Type Antibody Screen Crossmatch 12/08/18 12/08/18 12/08/18 19:31 20:30 21:48 WBC RBC Hgb Hct MCV MCH MCHC RDW Plt Count MPV Absolute Neuts (auto) Neutrophils % Lymphocytes % Monocytes % Eosinophils % Basophils % Nucleated RBC % Hypochromia Platelet Estimate Anisocytosis Microcytosis Macrocytosis PT with INR INR Sodium Potassium Chloride Carbon Dioxide Anion Gap BUN Creatinine Est GFR (CKD-EPI)AfAm Est GFR (CKD-EPI)NonAf Random Glucose Calcium Total Bilirubin AST ALT Alkaline Phosphatase Total Protein Albumin Urine Color Yellow Urine Appearance Cloudy Urine pH 7.0 Ur Specific [place] 1.008 L Urine Protein Negative Urine Glucose (UA) Negative Urine Ketones Negative Urine Blood Negative Urine Nitrite Negative Urine Bilirubin Negative Urine Urobilinogen 0.2 Ur Leukocyte Esterase 3+ H Urine WBC (Auto) 39 Urine RBC (Auto) 5.2 Urine Casts (Auto) 8 U Epithel Cells (Auto) 17.2 Urine Bacteria (Auto) 657.3 Stool Occult Blood Negative Blood Type O POSITIVE Antibody Screen Negative Crossmatch See Detail ASSESSMENT/PLAN: 82 yo F with a PMHx DM, GERD, arthritis, CAD on ASA, Plavix (s/p stent 6 years ago), was sent by her PCp because of a Hgb level in the 7's in the office. #Microcytic Anemia -GI Loss vs. bone marrow suppression from Methotrexate. -Presented with similar problem in 09/16. Patient refused GI workup. Refused Colonoscopy. -FU iron studies, give IV iron if indicated. Venofer 500mg x 2. -1 U PRBC transfusion started by ER -FOBT negative -Protonix 40mg IV BID -Dr. Moore Consulted by ED. -held am dose of ASA. wait to see what GI says -Follow AM CBC #CAD s/p stent -Held am dose of ASA. wait to see what GI says. -Consider continuing. #HTN -cont home meds #Asymptomatic Pyuria -low suspicion for UTI and asympomatic. -LE 3+, WBC 39 -Last admission with same findings. Low colonies. Decision was made to not continue Abx. -1x ceftriaxone in ED -Follow Cultures #DM -ISS -BGM ACHS #FEN -No iv fluids -monitor -NPO. Will wait to see what GI says. Visit type - Emergency Visit Emergency Visit: Yes ED Registration Date: 12/10/18 Care time: The patient presented to the Emergency Department on the above date and was hospitalized for further evaluation of their emergent condition. - New Patient This patient is new to me today: Yes Date on this admission: 12/10/18 - Critical Care Critical Care patient: No
[2018-12-08] MEDS ORDERED: PANTOPRAZOLE SODIUM 40 MG VIAL IVPUSH ONE (23:38)
[2018-12-08] MEDS ORDERED: PANTOPRAZOLE SODIUM 40 MG/100 ML BAG IVPB ONE (23:49)
[2018-12-09] MEDS ORDERED: PANTOPRAZOLE SODIUM 40 MG VIAL ONE (00:22)
[2018-12-09] MEDS: INSULIN SLIDING SCALE (NOVOLOG) 1 VIAL SQ SCH ×4 (00:32→17:05)
--- NOTE | 2018-12-09 01:09 | PDOC ---
Documentation entered by Kianna Lopez SCRIBE, acting as scribe for Meaghan Peterson MD. Meaghan Peterson MD: This documentation has been prepared by the John arevalo Xhesika, SCRIBE, under my direction and personally reviewed by me in its entirety. I confirm that the documentation accurately reflects all work, treatment, procedures, and medical decision making performed by me. Attending Attestation - Resident Resident Name: SuziejoaquinSimone - ED Attending Attestation I have performed the following: I have examined & evaluated the patient, The case was reviewed & discussed with the resident, I agree w/resident's findings & plan, Exceptions are as noted - HPI HPI: 12/08/18 20:57 pt was sent for anemia and reported hemoblobin of 7 . 12/08/18 21:15 The patient is a 83 year old female with a significant past medical history of HTN, HLD, CAD (w/ stents), CKD, ALEXANDRO (s/p admission for anemia/transfusion 08/2018 ) who presents to the ED advised by PCP for abnormal lab results. The patient states she was advised to come to the ED because her HBG was 7.7, however, at baseline it is around 11. The patient was admitted at [facility] ER on 09/16 after outpatient blood work revealed her to be anemic and her HGB on admission was 7.8. The patient denies chest pain, shortness of breath or dizziness. The patient denies fever, chills, nausea, diarrhea or constipation. The patient denies dysuria, frequency, urgency or hematuria. Allergy: NKDA Surgical History: 2 STENT(1 TO HEART, 1 TO RT LEG)) Social History: None reported PCP: Tj Canela GI: Dr. Moore - Physicial Exam PE: 12/09/18 00:44 83 yo female sent for anemia and has had blood transfusion in the past . she denies any acute shortness of breath or chest pain 12/09/18 00:47 slender 83 yo female surrounded by family. She has no complaints at this time head ncat neck no jvd,no bruits lungs cta b/l cvs [id number] abd nontender ext minimal pedal edema,no rashes skin warm and dry neuro alert,conversant,moving all extremities - Medical Decision Making 12/09/18 00:50 hemoglobin=7, hct=24 UA +uti pt needs to be admitted for transfusion and antibiotics of UTI
[2018-12-09] MEDS: HEPARIN NA (PORCINE) 5,000 UNITS/ML 1ML VIAL SQ SCH ×3 (06:14→21:21)
[2018-12-09 06:49] LABS: HEMATOCRIT 25.1 % (32.4-45.2); MCH 23.8 pg (25.7-33.7); MCHC 31.8 g/dl (32.0-36.0); MEAN PLT VOLUME 7.2 fl (7.5-11.1); PLATELET COUNT 279 K/MM3 (134-434); RBC 3.35 M/mm3 (3.60-5.2); RDW 20.9 % (11.6-15.6); WHITE BLOOD COUNT 3.2 K/mm3 (4.0-10.0)
[2018-12-09 07:14] LABS: ALBUMIN 2.3 g/dl (3.4-5.0); BILIRUBIN,TOTAL 0.5 mg/dL (0.2-1); CALCIUM 8.9 mg/dL (8.5-10.1); CREATININE 0.7 mg/dL (0.55-1.3); MAGNESIUM 2.4 mg/dL (1.8-2.4); PHOSPHOROUS 3.5 mg/dL (2.5-4.9); POTASSIUM 3.9 mmol/L (3.5-5.1); TOT PROT 6.2 g/dl (6.4-8.2)
--- NOTE | 2018-12-09 07:43 | PN ---
Teaching Attending Note Name of Resident: Bella Reyes ATTENDING PHYSICIAN STATEMENT I saw and evaluated the patient. I reviewed the resident's note and discussed the case with the resident. I agree with the resident's findings and plan as documented. SUBJECTIVE: No acute distress denies any OBJECTIVE: Vital Signs Temperature 98.3 F 12/09/18 05:00 Pulse Rate 71 12/09/18 05:00 Respiratory Rate 16 12/09/18 05:00 Blood Pressure 160/72 12/09/18 05:00 O2 Sat by Pulse Oximetry (%) 99 12/09/18 02:14 Elderly F not in distress HEENT: Temporal wasting , MM moist, anemia NECK: No JVD No Bruit CHEST: CTA B/L CVS: S1S2 R ABD: No distention, non tender BS + EXT: Trace edema feet, no calf tenderness. CBC, BMP 12/09/18 05:30 12/09/18 05:30 ASSESSMENT AND PLAN:83 yrs old F H/O Chronic anemia HTN, HLD, s/p stent placement 5 yrs ago (on ASA), T2DM Diet controlled, RA that was diagnosed few months ago now on Methotrexate Admitted from PMD office for low Hb 7.7 but patient was admitted discharge in 08/2018 for same chief complaint of anemia, GI was consulted but patient refused further GI work-up. On admission patient noted Hb 7.7, received 1U PRBC transfusion and Hg increase to 8.0. Patient had endoscopy performed 09/2016 with showed normal JE junction but had retained food and was instructed to have repeat endoscopy done in 6 months, which she did not follow up on. Previous colonoscopy performed 05/2016 which showed diverticulosis, no colonic polyp. Patient c/o significant unintentional wt loss (30 Lbs in 1 yr) no obvious GI bleed, stool occult blood negative. Problem List - Problems (1) Symptomatic anemia Assessment/Plan: Symptomatic anemia with normal Ferritin low TIBC and FE MCV 76 almost normocytic most likely Anemia of chronic Disease, F/U H/H after transfusion, LDH < Reticount , stool occult blood is negative. Code(s): D64.9 - ANEMIA, UNSPECIFIED (2) Unintentional weight loss Assessment/Plan: partient is > 80 yrs needs age specific and risk specific w/u for malignancy, GI evaluated will perform EGD and Colonoscopy as out patient, please get old Mammogram and Pap Smear report from PMD, F/U LDH, PreAlbumin, TSH is normal, ESR , CRP , RA Factor (please consult her Rhematologist Dr Talbot) if initial w/u is unrevealing with consider CT chest abd and Pelvis, SPEP, UPEP, Oncology consult Code(s): R63.4 - ABNORMAL WEIGHT LOSS (3) DM type 2 (diabetes mellitus, type 2) Assessment/Plan: Diet controlled Cont accuchecks BID Code(s): E11.9 - TYPE 2 DIABETES MELLITUS WITHOUT COMPLICATIONS (4) HTN (hypertension) Assessment/Plan: Well controlled cont Home meds Code(s): I10 - ESSENTIAL (PRIMARY) HYPERTENSION (5) CAD (coronary artery disease) Assessment/Plan: No active issue cont ASA and Statin Code(s): I25.10 - ATHSCL HEART DISEASE OF [place] CORONARY ARTERY W/O ANG PCTRS (6) Arthritis, rheumatoid Assessment/Plan: F/U Dr Talbot consult Dr Garces at present patient is on Methotrexate and Tylenol, considering symptomatic anemia will consoider alternative therapy. Code(s): M06.9 - RHEUMATOID ARTHRITIS, UNSPECIFIED
--- NOTE | 2018-12-09 08:04 | PN ---
Physical Exam: SUBJECTIVE: Patient seen and examined at bedside; no acute events overnight- patient states that she is feeling tired but denies any CP/SOB/N/V fevers or chills; no bloody bowel movements OBJECTIVE: Vital Signs Period Temp Pulse Resp BP Sys/Erazo Pulse Ox Last 24 Hr 98.1 F-98.5 F 71-108 16-18 146-164/56-75 99-100 GENERAL: The patient is awake, alert, and fully oriented, in no acute distress. HEAD:temporal wasting EYES:PEERLA; EOMI; no scleral icterus . . NECK: no JVD; no lymphadenopathy LUNGS: CTA B/L; no rales, rhonchi or wheezing. HEART: Regular rate and rhythm, S1, S2 without murmur, rub or gallop. ABDOMEN: Soft, nontender, nondistended, normoactive bowel sounds, no guarding, no rebound, no hepatosplenomegaly, no masses. EXTREMITIES: 2+ pulses, warm, well-perfused, no edema. PSYCH: Normal mood, normal affect. SKIN: Warm, dry, normal turgor, no rashes or lesions noted Laboratory Results - last 24 hr 12/08/18 12/08/18 12/08/18 19:31 19:31 19:31 WBC 5.5 RBC 3.26 L Hgb 7.7 L Hct 24.8 L D MCV 76.0 L MCH 23.6 L MCHC 31.1 L RDW 23.3 H Plt Count 314 MPV 7.1 L Absolute Neuts (auto) 3.6 Neutrophils % 65.1 Lymphocytes % 30.4 D Monocytes % 3.9 Eosinophils % 0.0 Basophils % 0.6 Nucleated RBC % 0 Hypochromia 2+ Platelet Estimate Adequate Anisocytosis 3+ Microcytosis 2+ Macrocytosis 1+ PT with INR 13.60 H INR 1.15 H Sodium 136 Potassium 4.3 Chloride 101 Carbon Dioxide 27 Anion Gap 8 BUN 25 H Creatinine 0.9 Est GFR (CKD-EPI)AfAm 68.05 Est GFR (CKD-EPI)NonAf 58.71 POC Glucometer Random Glucose 143 H Calcium 9.2 Phosphorus Magnesium Ferritin Total Bilirubin 0.3 AST 16 ALT 9 L Alkaline Phosphatase 81 Total Protein 7.3 Albumin 2.8 L Urine Color Urine Appearance Urine pH Ur Specific [place] Urine Protein Urine Glucose (UA) Urine Ketones Urine Blood Urine Nitrite Urine Bilirubin Urine Urobilinogen Ur Leukocyte Esterase Urine WBC (Auto) Urine RBC (Auto) Urine Casts (Auto) U Epithel Cells (Auto) Urine Bacteria (Auto) Stool Occult Blood Blood Type Antibody Screen Crossmatch 12/08/18 12/08/18 12/08/18 19:31 20:30 21:48 WBC RBC Hgb Hct MCV MCH MCHC RDW Plt Count MPV Absolute Neuts (auto) Neutrophils % Lymphocytes % Monocytes % Eosinophils % Basophils % Nucleated RBC % Hypochromia Platelet Estimate Anisocytosis Microcytosis Macrocytosis PT with INR INR Sodium Potassium Chloride Carbon Dioxide Anion Gap BUN Creatinine Est GFR (CKD-EPI)AfAm Est GFR (CKD-EPI)NonAf POC Glucometer Random Glucose Calcium Phosphorus Magnesium Ferritin Total Bilirubin AST ALT Alkaline Phosphatase Total Protein Albumin Urine Color Yellow Urine Appearance Cloudy Urine pH 7.0 Ur Specific [place] 1.008 L Urine Protein Negative Urine Glucose (UA) Negative Urine Ketones Negative Urine Blood Negative Urine Nitrite Negative Urine Bilirubin Negative Urine Urobilinogen 0.2 Ur Leukocyte Esterase 3+ H Urine WBC (Auto) 39 Urine RBC (Auto) 5.2 Urine Casts (Auto) 8 U Epithel Cells (Auto) 17.2 Urine Bacteria (Auto) 657.3 Stool Occult Blood Negative Blood Type O POSITIVE Antibody Screen Negative Crossmatch See Detail 12/08/18 12/09/18 12/09/18 23:43 00:25 05:30 WBC 3.2 L RBC 3.35 L Hgb 8.0 L Hct 25.1 L MCV 75.0 L MCH 23.8 L MCHC 31.8 L RDW 20.9 H Plt Count 279 MPV 7.2 L Absolute Neuts (auto) Neutrophils % Lymphocytes % Monocytes % Eosinophils % Basophils % Nucleated RBC % Hypochromia Platelet Estimate Anisocytosis Microcytosis Macrocytosis PT with INR INR Sodium Potassium Chloride Carbon Dioxide Anion Gap BUN Creatinine Est GFR (CKD-EPI)AfAm Est GFR (CKD-EPI)NonAf POC Glucometer 163 Random Glucose Calcium Phosphorus Magnesium Ferritin 516.3 H Total Bilirubin AST ALT Alkaline Phosphatase Total Protein Albumin Urine Color Urine Appearance Urine pH Ur Specific [place] Urine Protein Urine Glucose (UA) Urine Ketones Urine Blood Urine Nitrite Urine Bilirubin Urine Urobilinogen Ur Leukocyte Esterase Urine WBC (Auto) Urine RBC (Auto) Urine Casts (Auto) U Epithel Cells (Auto) Urine Bacteria (Auto) Stool Occult Blood Blood Type Antibody Screen Crossmatch 12/09/18 12/09/18 05:30 06:12 WBC RBC Hgb Hct MCV MCH MCHC RDW Plt Count MPV Absolute Neuts (auto) Neutrophils % Lymphocytes % Monocytes % Eosinophils % Basophils % Nucleated RBC % Hypochromia Platelet Estimate Anisocytosis Microcytosis Macrocytosis PT with INR INR Sodium 137 Potassium 3.9 Chloride 106 Carbon Dioxide 27 Anion Gap 4 L BUN 20 H Creatinine 0.7 Est GFR (CKD-EPI)AfAm 92.21 Est GFR (CKD-EPI)NonAf 79.56 POC Glucometer 141 Random Glucose 132 H Calcium 8.9 Phosphorus 3.5 Magnesium 2.4 Ferritin Total Bilirubin 0.5 AST 11 L ALT 7 L Alkaline Phosphatase 66 Total Protein 6.2 L Albumin 2.3 L Urine Color Urine Appearance Urine pH Ur Specific [place] Urine Protein Urine Glucose (UA) Urine Ketones Urine Blood Urine Nitrite Urine Bilirubin Urine Urobilinogen Ur Leukocyte Esterase Urine WBC (Auto) Urine RBC (Auto) Urine Casts (Auto) U Epithel Cells (Auto) Urine Bacteria (Auto) Stool Occult Blood Blood Type Antibody Screen Crossmatch Active Medications Generic Name Dose Route Start Last Admin Trade Name Freq PRN Reason Stop Dose Admin Amlodipine Besylate 5 mg 12/09/18 10:00 Norvasc - PO DAILY [facility] Atorvastatin Calcium 20 mg 12/09/18 22:00 Lipitor - PO [facility] Enalapril Maleate 20 mg 12/09/18 10:00 Vasotec - PO DAILY [facility] Folic Acid 1 mg 12/09/18 10:00 Folic Acid - PO DAILY [facility] Heparin Sodium (Porcine) 5,000 unit 12/09/18 06:00 12/09/18 06:14 Heparin - SQ 5,000 unit TID [facility] Administration Insulin Aspart 1 vial 12/09/18 00:00 12/09/18 06:13 Novolog Vial Sliding Scale - SQ Not Given Q6HPO [facility] Protocol Metoprolol Tartrate 50 mg 12/09/18 10:00 Lopressor - PO DAILY [facility] Pantoprazole Sodium 40 mg 12/09/18 10:00 Protonix Iv IVPUSH BID [facility] ASSESSMENT/PLAN: 82 yo F with a PMHx DM, GERD, arthritis, CAD on ASA, Plavix (s/p stent 6 years ago), was sent by her PCp because of a Hgb level in the 7's in the office. #Microcytic Anemia -GI Loss vs. bone marrow suppression from Methotrexate. -Presented with similar problem in 09/16. Patient refused GI workup. Refused Colonoscopy. -FU iron studies, -1 U PRBC transfusion started by ER -FOBT negative -Protonix 40mg IV BID -Dr. Moore Consulted by ED. -tumor markers pending will do malignancy workup #CAD s/p stent -Held am dose of ASA. wait to see what GI says. -Consider continuing. #HTN -cont home meds #Asymptomatic Pyuria -low suspicion for UTI and asympomatic. -LE 3+, WBC 39 -Last admission with same findings. Low colonies. Decision was made to not continue Abx. -1x ceftriaxone in ED -Follow Cultures #DM -ISS -BGM ACHS #FEN -No iv fluids -monitor -NPO. Will wait to see what GI says. Problem List - Problems (1) Anemia Code(s): D64.9 - ANEMIA, UNSPECIFIED Qualifiers: Anemia type: iron deficiency Iron deficiency anemia type: unspecified iron deficiency Qualified Code(s): D50.9 - Iron deficiency anemia, unspecified (2) Arthritis, rheumatoid Code(s): M06.9 - RHEUMATOID ARTHRITIS, UNSPECIFIED (3) Unintentional weight loss Code(s): R63.4 - ABNORMAL WEIGHT LOSS (4) DM type 2 (diabetes mellitus, type 2) Code(s): E11.9 - TYPE 2 DIABETES MELLITUS WITHOUT COMPLICATIONS Visit type - Emergency Visit Emergency Visit: Yes ED Registration Date: 12/08/18 Care time: The patient presented to the Emergency Department on the above date and was hospitalized for further evaluation of their emergent condition. - New Patient This patient is new to me today: Yes Date on this admission: 12/09/18 - Critical Care Critical Care patient: No
--- NOTE | 2018-12-09 08:22 | CON.GI ---
Consult Consult Specialty:: GI Referred by:: Simone Love Reason for Consultation:: Anemia - History of Present Illness History of Present Illness: Patient is an 83 y/o female with past medical history of Anemia, HTN, HLD, s/p stent placement 5 yrs ago (on ASA), DM, RA. I was asked to evaluate patient for anemia. Patient was admitted in 08/2018 for same chief complaint of anemia, GI was consulted but patient refused further GI work-up. On admission patient noted with Hg 7.7, received 1U PRBC transfusion and Hg increase to 8.0. Patient had endoscopy performed 09/2016 with showed normal JE junction but had retained food and was instructed to have repeat endoscopy done in 6 months, which she did not follow up on. Previous colonoscopy performed 05/2016 which showed diverticulosis, no colonic polyp. Patient states experiencing weight loss of 30lbs in 1 year and has poor appetite. Patient has long standing use of aspirin and methotrexate. Denies nausea, vomiting, abdominal pain, rectal bleeding, melena. 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 History of Recent Travel: No Home Medications - Allergies Allergies/Adverse Reactions: Allergies Allergy/AdvReac Type Severity Reaction Status Date / Time No Known Allergies Allergy Verified 12/08/18 18:55 - Home Medications Home Medications: Ambulatory Orders Amlodipine Besylate [Norvasc -] 5 mg PO DAILY 09/05/18 Enalapril Maleate [Vasotec] 20 mg PO DAILY 09/05/18 Folic Acid 1 mg PO DAILY 09/05/18 Iron Polysaccharides [Niferex-150 -] 150 mg PO DAILY 09/05/18 Metoprolol Tartrate [Lopressor -] 50 mg PO DAILY 09/05/18 Omeprazole 40 mg PO DAILY 09/05/18 Simvastatin 40 mg PO DAILY 09/05/18 Aspirin [ASA -] 81 mg PO DAILY #30 tab.chew 09/06/18 Methotrexate [Mexate -] 10 mg PO Q7D 12/08/18 Family Disease History - Family Disease History Family Disease History: Other: Father (: 76: possible cancer), Mother ( : 74: PNA), Brother (1), Sister (2, 1 from CHF), Son (2, healthy), Daughter (3, 1 with PVD, HTN) Review of Systems - Review of Systems Constitutional: reports: Loss of Appetite, Unintentional Wgt. Loss Eyes: reports: No Symptoms HENT: reports: No Symptoms Neck: reports: No Symptoms Cardiovascular: reports: No Symptoms Respiratory: reports: No Symptoms Gastrointestinal: reports: No Symptoms Genitourinary: reports: No Symptoms Breasts: reports: No Symptoms Reported Musculoskeletal: reports: No Symptoms Integumentary: reports: No Symptoms Neurological: reports: No Symptoms Endocrine: reports: No Symptoms Hematology/Lymphatic: reports: No Symptoms Psychiatric: reports: No Symptoms Physical Exam-GI Vital Signs: Vital Signs Temperature 98.3 F 12/09/18 05:00 Pulse Rate 71 12/09/18 05:00 Respiratory Rate 16 12/09/18 05:00 Blood Pressure 160/72 12/09/18 05:00 O2 Sat by Pulse Oximetry (%) 99 12/09/18 02:14 Constitutional: Yes: No Distress, Calm Eyes: Yes: Conjunctiva Clear HENT: Yes: Atraumatic Cardiovascular: Yes: Regular Rate and Rhythm Respiratory: Yes: Regular, CTA Bilaterally Gastrointestinal Inspection: Yes: WNL. No: Ascites, Distention, Hernia, Scars, Other ...Auscultate: Yes: Normoactive Bowel Sounds. No: Hyperactive Bowel Sounds, Hypoactive Bowel Sounds, No Bowel Sounds, Other ...Palpate: Yes: Soft. No: Firm/Rigid, Guarding, Hepatomegaly, Mass, Pulsatile Mass, Splenomegaly, Tenderness, Tenderness, Epigastium, Tenderness, Rebound, Other ...Percussion: Yes: Tympanitic. No: Dullness, Fluid Wave, Other Neurological: Yes: Alert, Oriented Psychiatric: Yes: Alert, Oriented Labs: CBC, BMP 12/09/18 05:30 12/09/18 05:30 INR, PTT INR 1.15 (0.83-1.09) H 12/08/18 19:31 Home Medication List Medication Instructions Recorded Confirmed Type Amlodipine Besylate [Norvasc -] 5 mg PO DAILY 09/05/18 12/08/18 History Enalapril Maleate [Vasotec] 20 mg PO DAILY 09/05/18 12/08/18 History Folic Acid 1 mg PO DAILY 09/05/18 12/08/18 History Iron Polysaccharides [Niferex-150 150 mg PO DAILY 09/05/18 12/08/18 History -] Metoprolol Tartrate [Lopressor -] 50 mg PO DAILY 09/05/18 12/08/18 History Omeprazole 40 mg PO DAILY 09/05/18 12/08/18 History Simvastatin 40 mg PO DAILY 09/05/18 12/08/18 History Methotrexate [Mexate -] 10 mg PO Q7D 12/08/18 12/08/18 History Active Medications Generic Name Dose Route Start Last Admin Trade Name Freq PRN Reason Stop Dose Admin Amlodipine Besylate 5 mg 12/09/18 10:00 Norvasc - PO DAILY [facility] Atorvastatin Calcium 20 mg 12/09/18 22:00 Lipitor - PO HS [facility] Enalapril Maleate 20 mg 12/09/18 10:00 Vasotec - PO DAILY [facility] Folic Acid 1 mg 12/09/18 10:00 Folic Acid - PO DAILY [facility] Heparin Sodium (Porcine) 5,000 unit 12/09/18 06:00 12/09/18 06:14 Heparin - SQ 5,000 unit TID [facility] Administration Insulin Aspart 1 vial 12/09/18 00:00 12/09/18 06:13 Novolog Vial Sliding Scale - SQ Not Given Q6HPO [facility] Protocol Metoprolol Tartrate 50 mg 12/09/18 10:00 Lopressor - PO DAILY [facility] Pantoprazole Sodium 40 mg 12/09/18 10:00 Protonix Iv IVPUSH BID [facility] Problem List - Problems (1) Unintentional weight loss Assessment/Plan: -AFP, CEA, CA 19-9, CA 125 ordered Code(s): R63.4 - ABNORMAL WEIGHT LOSS (2) Anemia Assessment/Plan: >current Hg 8.0--will order 1U PRBC for transfusion >monitor Hg daily, transfuse if Hg <8.0 >Iron studies pending >patient instructed to follow up as outpatient for further GI workup and outpatient endoscopy >retic count ordered Code(s): D64.9 - ANEMIA, UNSPECIFIED Qualifiers: Anemia type: iron deficiency Iron deficiency anemia type: unspecified iron deficiency Qualified Code(s): D50.9 - Iron deficiency anemia, unspecified
[2018-12-09] MEDS ORDERED: amLODIPine BESYLATE 5 MG TABLET (FP) PO SCH (10:00)
[2018-12-09] MEDS ORDERED: PANTOPRAZOLE SODIUM 40 MG VIAL IVPUSH SCH ×2 (10:00)
[2018-12-09] MEDS ORDERED: PT OWN MED DRAWER 7, Y5N ONE (10:03)
[2018-12-09] MEDS: FOLIC ACID 1 MG TABLET (FP) PO SCH (10:51)
[2018-12-09] MEDS: METOPROLOL TARTRATE 50 MG TABLET (FP) PO SCH (10:51)
--- NOTE | 2018-12-09 12:08 | EKG ---
Test Reason : Blood Pressure : / mmHG Vent. Rate : 075 BPM Atrial Rate : 075 BPM P-R Int : 204 ms QRS Dur : 106 ms QT Int : 412 ms P-R-T Axes : 082 -18 049 degrees QTc Int : 460 ms NORMAL SINUS RHYTHM INCOMPLETE LEFT BUNDLE BRANCH BLOCK BORDERLINE ECG WHEN COMPARED WITH ECG OF 05-SEP-2018 16:53, PREMATURE SUPRAVENTRICULAR COMPLEXES ARE NO LONGER PRESENT INCOMPLETE LEFT BUNDLE BRANCH BLOCK IS NOW PRESENT Confirmed by MD Hayden, Pancho ([id number]) on 12/09/2018 12:07:57 PM Referred By: Confirmed By:Pancho Blake MD
[2018-12-09] MEDS: ENALAPRIL MALEATE 10 MG TABLET (FP) PO SCH (12:18)
[2018-12-09] MEDS ORDERED: MAGNESIUM CITRATE 300 ML BOTTLE PO ONE (13:36)
[2018-12-09] MEDS: ATORVASTATIN CA 20 MG TABLET (FP) PO SCH (21:21)
[2018-12-09] MEDS ORDERED: INSULIN (NOVOLOG) ASPART 100 UNITS/ML 10ML VIAL ONE ×2 (23:00→23:56)
[2018-12-10 04:15] LABS: SERUM IRON SATURATION 9 % (15-55); TOTAL IRON BINDING CAPACITY 189 ug/dL (250-450); UIBC 172 ug/dL (118-369)
[2018-12-10] MEDS ORDERED: INSULIN (NOVOLOG) ASPART 100 UNITS/ML 10ML VIAL ONE ×2 (05:41→12:54)
[2018-12-10] MEDS: INSULIN SLIDING SCALE (NOVOLOG) 1 VIAL SQ SCH ×5 (05:48→23:55)
[2018-12-10] MEDS: HEPARIN NA (PORCINE) 5,000 UNITS/ML 1ML VIAL SQ SCH ×3 (05:49→21:20)
[2018-12-10] MEDS ORDERED: POLYETHYLENE GLYCOL 3350 255 GM BTL PO ONE (06:00)
[2018-12-10 06:39] LABS: HEMATOCRIT 28.9 % (32.4-45.2); HEMOGLOBIN 9.5 GM/dL (10.7-15.3); MCH 24.5 pg (25.7-33.7); MCHC 32.7 g/dl (32.0-36.0); MEAN CELL VOLUME 74.8 fl (80-96); MEAN PLT VOLUME 7.5 fl (7.5-11.1); PLATELET COUNT 300 K/MM3 (134-434); RBC 3.87 M/mm3 (3.60-5.2); RDW 20.1 % (11.6-15.6); WHITE BLOOD COUNT 5.1 K/mm3 (4.0-10.0)
[2018-12-10] MEDS ORDERED: PT OWN MED DRAWER 7, Y5N ONE ×3 (07:00→09:27)
[2018-12-10 07:04] LABS: ALBUMIN 2.3 g/dl (3.4-5.0); BILIRUBIN,TOTAL 0.4 mg/dL (0.2-1); CALCIUM 8.7 mg/dL (8.5-10.1); CREATININE 0.7 mg/dL (0.55-1.3); MAGNESIUM 2.4 mg/dL (1.8-2.4); PHOSPHOROUS 2.8 mg/dL (2.5-4.9); POTASSIUM 4.2 mmol/L (3.5-5.1); TOT PROT 6.2 g/dl (6.4-8.2)
--- NOTE | 2018-12-10 07:34 | PN.GI ---
GI Progress Note Subjective: Patient is s/p 1U PRBC transfusion yesterday, current (12/10 529) Hg 9.5. Complain of dark colored stools, Stool OB negative from 12/08/18. Patient denies dysphagia, nausea, vomiting, abdominal pain, rectal bleeding. - Objective Vital Signs: Vital Signs Temperature 98.1 F 12/10/18 06:17 Pulse Rate 87 12/10/18 06:17 Respiratory Rate 16 12/10/18 06:17 Blood Pressure 167/88 12/10/18 06:17 O2 Sat by Pulse Oximetry (%) 100 12/10/18 02:00 Constitutional: No Distress, Calm Eyes: Yes: Conjunctiva Clear HENT: Yes: Atraumatic Cardiovascular: Yes: Regular Rate and Rhythm Respiratory: Yes: Regular, CTA Bilaterally Gastrointestinal Inspection: Yes: WNL. No: Ascites, Distention, Hernia, Scars, Other ...Auscultate: Yes: Normoactive Bowel Sounds. No: Hyperactive Bowel Sounds, Hypoactive Bowel Sounds, No Bowel Sounds, Other ...Palpate: Yes: Soft. No: Firm/Rigid, Guarding, Hepatomegaly, Mass, Pulsatile Mass, Splenomegaly, Tenderness, Tenderness, Epigastium, Tenderness, Rebound, Other ...Percussion: Yes: Tympanitic. No: Dullness, Fluid Wave, Other Neurological: Yes: Alert, Oriented Psychiatric: Yes: Alert, Oriented Labs: CBC, BMP 12/10/18 05:30 12/10/18 05:30 INR, PTT INR 1.15 (0.83-1.09) H 12/08/18 19:31 Active Medications Generic Name Dose Route Start Last Admin Trade Name Freq PRN Reason Stop Dose Admin Amlodipine Besylate 10 mg 12/10/18 07:29 Norvasc - PO DAILY [facility] Atorvastatin Calcium 20 mg 12/09/18 22:00 12/09/18 21:21 Lipitor - PO 20 mg HS [facility] Administration Enalapril Maleate 20 mg 12/09/18 10:00 12/09/18 12:18 Vasotec - PO 20 mg DAILY [facility] Administration Folic Acid 1 mg 12/09/18 10:00 12/09/18 10:51 Folic Acid - PO 1 mg DAILY [facility] Administration Heparin Sodium (Porcine) 5,000 unit 12/09/18 06:00 12/10/18 05:49 Heparin - SQ 5,000 unit TID [facility] Administration Insulin Aspart 1 vial 12/09/18 00:00 12/10/18 05:48 Novolog Vial Sliding Scale - SQ 2 unit Q6HPO [facility] Administration Protocol Metoprolol Tartrate 50 mg 12/09/18 10:00 12/09/18 10:51 Lopressor - PO 50 mg DAILY [facility] Administration Pantoprazole Sodium 40 mg 12/10/18 10:00 Protonix - PO DAILY [facility] Sodium Phosphate 133 ml 12/11/18 06:00 Fleet Adult Rectal Enema - [place] 12/11/18 06:01 ONCE ONE Problem List - Problems (1) Unintentional weight loss Assessment/Plan: -AFP 1.3 -CEA, CA 19-9, CA 125 ordered -Oncology consult Code(s): R63.4 - ABNORMAL WEIGHT LOSS (2) Anemia Assessment/Plan: >current Hg 9.5 >monitor Hg daily, transfuse if Hg <8.0 >Iron studies reviewed >patient will begin prep for colonoscopy >retic count nl Code(s): D64.9 - ANEMIA, UNSPECIFIED Qualifiers: Anemia type: iron deficiency Iron deficiency anemia type: unspecified iron deficiency Qualified Code(s): D50.9 - Iron deficiency anemia, unspecified
--- NOTE | 2018-12-10 08:17 | PN ---
Physical Exam: SUBJECTIVE: Patient seen and examined at bedside; no acute events overnight' patient states she is feeling well; denies SOB/palpitations or dizziness- will be starting colonoscopy prep today for colonoscopy and EGD tomorrow OBJECTIVE: Vital Signs Period Temp Pulse Resp BP Sys/Erazo Pulse Ox Last 24 Hr 97.8 F-98.1 F 73-87 15-20 137-171/72-100 98-100 GENERAL: The patient is awake, alert, and fully oriented, in no acute distress. EYES: PEERLA: EOMI no scleral icterus . NECK: no JVD; no lymphadenopathy. LUNGS: CTA B/L; no rales, rhonchi or wheezing HEART: Regular rate and rhythm, S1, S2 without murmur, rub or gallop. ABDOMEN: Soft, nontender, nondistended, normoactive bowel sounds, no guarding, no rebound, no hepatosplenomegaly, no masses. EXTREMITIES: 2+ pulses, warm, well-perfused, no edema. PSYCH: Normal mood, normal affect. SKIN: Warm, dry, normal turgor, no rashes or lesions noted Laboratory Results - last 24 hr 12/08/18 12/08/18 12/09/18 19:31 23:00 08:48 WBC RBC Hgb Hct MCV MCH MCHC RDW Plt Count MPV ESR Retic Count Sodium Potassium Chloride Carbon Dioxide Anion Gap BUN Creatinine Est GFR (CKD-EPI)AfAm Est GFR (CKD-EPI)NonAf POC Glucometer Random Glucose Calcium Phosphorus Magnesium Iron 17 L TIBC 189 L Iron Saturation 9 L Total Bilirubin AST ALT Alkaline Phosphatase LD Total C-Reactive Protein Total Protein Albumin Tumor Marker AFP Carcinoembryonic Ag 1.7 CA 19-9 Antigen CA 125 Antigen Blood Type O POSITIVE Antibody Screen Negative Crossmatch See Detail 12/09/18 12/09/18 12/09/18 08:48 08:48 08:48 WBC RBC Hgb Hct MCV MCH MCHC RDW Plt Count MPV ESR Retic Count 1.22 Sodium Potassium Chloride Carbon Dioxide Anion Gap BUN Creatinine Est GFR (CKD-EPI)AfAm Est GFR (CKD-EPI)NonAf POC Glucometer Random Glucose Calcium Phosphorus Magnesium Iron TIBC Iron Saturation Total Bilirubin AST ALT Alkaline Phosphatase LD Total C-Reactive Protein Total Protein Albumin Tumor Marker AFP 1.3 Carcinoembryonic Ag CA 19-9 Antigen 1 CA 125 Antigen 4.5 Blood Type Antibody Screen Crossmatch 12/09/18 12/09/18 12/09/18 12:04 16:10 16:10 WBC RBC Hgb Hct MCV MCH MCHC RDW Plt Count MPV ESR 69 H Retic Count Sodium Potassium Chloride Carbon Dioxide Anion Gap BUN Creatinine Est GFR (CKD-EPI)AfAm Est GFR (CKD-EPI)NonAf POC Glucometer 109 Random Glucose Calcium Phosphorus Magnesium Iron TIBC Iron Saturation Total Bilirubin AST ALT Alkaline Phosphatase LD Total 196 C-Reactive Protein 8.0 H Total Protein Albumin Tumor Marker AFP Carcinoembryonic Ag CA 19-9 Antigen CA 125 Antigen Blood Type Antibody Screen Crossmatch 12/09/18 12/09/18 12/10/18 16:52 22:43 05:30 WBC 5.1 RBC 3.87 Hgb 9.5 L Hct 28.9 L D MCV 74.8 L MCH 24.5 L MCHC 32.7 RDW 20.1 H Plt Count 300 MPV 7.5 ESR Retic Count Sodium Potassium Chloride Carbon Dioxide Anion Gap BUN Creatinine Est GFR (CKD-EPI)AfAm Est GFR (CKD-EPI)NonAf POC Glucometer 180 190 Random Glucose Calcium Phosphorus Magnesium Iron TIBC Iron Saturation Total Bilirubin AST ALT Alkaline Phosphatase LD Total C-Reactive Protein Total Protein Albumin Tumor Marker AFP Carcinoembryonic Ag CA 19-9 Antigen CA 125 Antigen Blood Type Antibody Screen Crossmatch 12/10/18 12/10/18 05:30 05:35 WBC RBC Hgb Hct MCV MCH MCHC RDW Plt Count MPV ESR Retic Count Sodium 135 L Potassium 4.2 Chloride 103 Carbon Dioxide 27 Anion Gap 6 L BUN 14 Creatinine 0.7 Est GFR (CKD-EPI)AfAm 92.21 Est GFR (CKD-EPI)NonAf 79.56 POC Glucometer 170 Random Glucose 170 H Calcium 8.7 Phosphorus 2.8 Magnesium 2.4 Iron TIBC Iron Saturation Total Bilirubin 0.4 AST 12 L ALT 7 L Alkaline Phosphatase 71 LD Total C-Reactive Protein Total Protein 6.2 L Albumin 2.3 L Tumor Marker AFP Carcinoembryonic Ag CA 19-9 Antigen CA 125 Antigen Blood Type Antibody Screen Crossmatch Active Medications Generic Name Dose Route Start Last Admin Trade Name Freq PRN Reason Stop Dose Admin Amlodipine Besylate 10 mg 12/10/18 07:29 Norvasc - PO DAILY [facility] Atorvastatin Calcium 20 mg 12/09/18 22:00 12/09/18 21:21 Lipitor - PO 20 mg HS [facility] Administration Enalapril Maleate 20 mg 12/09/18 10:00 12/09/18 12:18 Vasotec - PO 20 mg DAILY [facility] Administration Folic Acid 1 mg 12/09/18 10:00 12/09/18 10:51 Folic Acid - PO 1 mg DAILY [facility] Administration Heparin Sodium (Porcine) 5,000 unit 12/09/18 06:00 12/10/18 05:49 Heparin - SQ 5,000 unit TID [facility] Administration Insulin Aspart 1 vial 12/09/18 00:00 12/10/18 05:48 Novolog Vial Sliding Scale - SQ 2 unit Q6HPO [facility] Administration Protocol Metoprolol Tartrate 50 mg 12/09/18 10:00 12/09/18 10:51 Lopressor - PO 50 mg DAILY [facility] Administration Pantoprazole Sodium 40 mg 12/10/18 10:00 Protonix - PO DAILY [facility] Sodium Phosphate 133 ml 12/11/18 06:00 Fleet Adult Rectal Enema - [place] 12/11/18 06:01 ONCE ONE ASSESSMENT/PLAN: 82 yo F with a PMHx DM, GERD, arthritis, CAD on ASA, Plavix (s/p stent 6 years ago), was sent by her PCp because of a Hgb level in the 7's in the office. #Microcytic Anemia -GI Loss vs. bone marrow suppression from Methotrexate. -Presented with similar problem in 09/16. Patient refused GI workup. Refused Colonoscopy. -FU iron studies, -FOBT negative -Protonix 40mg IV BID -Dr. Moore Consulted - patient for colonoscopy and EGD tomorrow -tumor markers back - normal thus far -Heme consulted #CAD s/p stent -Held am dose of ASA. wait to see what GI says. -Consider continuing. #HTN -cont home meds #Asymptomatic Pyuria -low suspicion for UTI and asympomatic. -LE 3+, WBC 39 -Last admission with same findings. Low colonies. Decision was made to not continue Abx. -1x ceftriaxone in ED -Follow Cultures #DM -ISS -BGM ACHS #FEN -No iv fluids -monitor -NPO. after midnight for colonoscopy Problem List - Problems (1) Anemia Code(s): D64.9 - ANEMIA, UNSPECIFIED Qualifiers: Anemia type: iron deficiency Iron deficiency anemia type: unspecified iron deficiency Qualified Code(s): D50.9 - Iron deficiency anemia, unspecified (2) Arthritis, rheumatoid Code(s): M06.9 - RHEUMATOID ARTHRITIS, UNSPECIFIED (3) Unintentional weight loss Code(s): R63.4 - ABNORMAL WEIGHT LOSS (4) DM type 2 (diabetes mellitus, type 2) Code(s): E11.9 - TYPE 2 DIABETES MELLITUS WITHOUT COMPLICATIONS Visit type - Emergency Visit Emergency Visit: Yes ED Registration Date: 12/08/18 Care time: The patient presented to the Emergency Department on the above date and was hospitalized for further evaluation of their emergent condition. - New Patient This patient is new to me today: No - Critical Care Critical Care patient: No
[2018-12-10] MEDS: FOLIC ACID 1 MG TABLET (FP) PO SCH (09:25)
[2018-12-10] MEDS: METOPROLOL TARTRATE 50 MG TABLET (FP) PO SCH (09:25)
[2018-12-10] MEDS: ENALAPRIL MALEATE 10 MG TABLET (FP) PO SCH (09:26)
[2018-12-10] MEDS: amLODIPine BESYLATE 10 MG TABLET (FP) PO SCH (09:26)
[2018-12-10] MEDS: PANTOPRAZOLE 40 MG TABLET (FP) PO SCH (09:26)
--- NOTE | 2018-12-10 10:49 | PN ---
Teaching Attending Note Name of Resident: Bella Reyes ATTENDING PHYSICIAN STATEMENT I saw and evaluated the patient. I reviewed the resident's note and discussed the case with the resident. I agree with the resident's findings and plan as documented. SUBJECTIVE:asymptomatic. denies Cp, SOB, fever,chills, N/V/C/D, no melena or BRBPR OBJECTIVE: Last Vital Signs Temp Pulse Resp BP Pulse Ox 98.1 F 86 20 159/88 98 12/10/18 06:17 12/10/18 08:11 12/10/18 08:11 12/10/18 08:11 12/10/18 08:12 General NAD CV S1 S2 + abdomen soft NT/ND no rebound or guarding ASSESSMENT AND PLAN: 83 yrs old F H/O Chronic anemia HTN, HLD, s/p stent placement 5 yrs ago (on ASA ), T2DM Diet controlled, RA that was diagnosed few months ago now on Methotrexate Admitted from PMD office for low Hb 7.7 but patient was admitted discharge in 08/2018 for same chief complaint of anemia, GI was consulted but patient refused further GI work-up. On admission patient noted Hb 7.7, received 1U PRBC transfusion and Hg increase to 8.0. Patient had endoscopy performed 09/2016 with showed normal JE junction but had retained food and was instructed to have repeat endoscopy done in 6 months, which she did not follow up on. Previous colonoscopy performed 05/2016 which showed diverticulosis, no colonic polyp. Patient c/o significant unintentional wt loss (30 Lbs in 1 yr) no obvious GI bleed, stool occult blood negative. 1. asymptomatic anemia- s/p 2 units PRBC. has significant weight loss. had scheduled EGD/colonoscopy as outpatient but seems like she didnt follow up. will start bowel prep today for procedure tomorrow. tumor markers WNL. hgb stable. GI and hematology on board 2. HTN- above goal. will increase norvasc to 10mg 3. DM- diet controlled 4. RA- recently diagnosed and started on MTX. could be leading to pancytopenia however other elias look stable. will monitor 5. Dyslipidemia- statin 6. DVT ppx- hep sq 7. anticipate discharge tomorrow pending results of endoscopy
[2018-12-10] MEDS ORDERED: DEXTROSE 5%-NORMAL SALINE 1,000 ML IV SCH (19:15)
--- NOTE | 2018-12-10 20:39 | PN ---
Progress Note (short form) - Note Progress Note: Patient seen and examined Consult dictated 83 year old presented with anemia , and weight loss. Simila type problems several months earlier/ GI assessment is planned for AM FH- father of Ca ? lung or pancreas SH - non smoker, social drinker , no industrila exposures NKA PMH - chronic anemia, DM(II), CAD, s/p stents, HLD, Rheumatoid arthritis on MTX ROS- no headaches, diplopia, epistaxis, dysphagia, chest pain, SOB, nausea, emesis, + weight loss, loss of apppetite, no dysuria, no vaginal bleeding, back pain joint pains Last Vital Signs Temp Pulse Resp BP Pulse Ox 97.5 F L 86 20 156/92 98 12/10/18 18:21 12/10/18 18:21 12/10/18 18:21 12/10/18 18:21 12/10/18 18:00 HEENT: WADE, EOM Intact Oropharynx: No thrush, No mucositis,dentures Neck: Supple Nodes: Without adenopathy Breasts: Without masses Cor: RSR, No murmurs, No gallops Lungs: Clear to P&A Abd: Soft, Normal bowel sounds, No organomegaly Ext:No significant edema,clubbing Skin: No rashes, Integument intact CBC, BMP 12/10/18 05:30 12/10/18 05:30 Current Medications Generic Name Dose Route Start Last Admin Trade Name Freq PRN Reason Stop Dose Admin Amlodipine Besylate 10 mg 12/10/18 07:29 12/10/18 09:26 Norvasc - PO 10 mg DAILY SHRUTHI Administration Atorvastatin Calcium 20 mg 12/09/18 22:00 12/09/18 21:21 Lipitor - PO 20 mg HS SHRUTHI Administration Enalapril Maleate 20 mg 12/09/18 10:00 12/10/18 09:26 Vasotec - PO 20 mg DAILY SHRUTHI Administration Folic Acid 1 mg 12/09/18 10:00 12/10/18 09:25 Folic Acid - PO 1 mg DAILY SHRUTHI Administration Heparin Sodium (Porcine) 5,000 unit 12/09/18 06:00 12/10/18 15:50 Heparin - SQ 5,000 unit TID SHRUTHI Administration Dextrose/Sodium Chloride 1,000 mls @ 100 mls/hr 12/10/18 19:15 D5-Ns - IV 12/12/18 05:14 ASDIR SHRUTHI Insulin Aspart 1 vial 12/09/18 00:00 12/10/18 17:59 Novolog Vial Sliding Scale - SQ Not Given Q6HPO [facility] Protocol Metoprolol Tartrate 50 mg 12/09/18 10:00 12/10/18 09:25 Lopressor - PO 50 mg DAILY SHRUTHI Administration Pantoprazole Sodium 40 mg 12/10/18 10:00 12/10/18 09:26 Protonix - PO 40 mg DAILY SHRUTHI Administration Sodium Phosphate 133 ml 12/11/18 06:00 Fleet Adult Rectal Enema - [place] 12/11/18 06:01 ONCE ONE Impression: Review of prior records reveals that on 09/06/18 -Hb-10.5/Hct-31.5%; On 12/08/18 Hb-7.7/Hct 24.8 . During this period of time serum Fe++ fell from 33 to 17 and Fe++ saturation fell from 23% to 9%. This suggests component of blood loss anemia and patient is to have GI work up to assess. Assuming this to be nonrevealing for either a source of blood loss or weight loss, then CT evaluation would seem reasonable. Chest X-ray is unremarkable, patient is a non smoker, yet she has clubbing. ESR is 69 --? related to rheumatologic disease , ? other . To check Hemoglobin electrophoresis, TSH celiac disease , haptoglobin.
--- NOTE | 2018-12-10 21:13 | CONS ---
DATE OF CONSULTATION: 12/10/2018 This 83-year-old female entered for anemia. Previously, several months ago, she had a similar type problem. The patient's past history includes that of type 2 diabetes, rheumatoid arthritis on methotrexate, coronary artery disease status post stent placement in the past, hyperlipidemia, and hypertension. The patient has been transfused in the hospital and GI workup is planned. SOCIAL HISTORY: The patient worked in [employer], is a nonsmoker, nondrinker. No industrial exposures or intoxicants. FAMILY HISTORY: Includes a father who had cancer, questionable lung cancer or pancreatic cancer. Family is unsure. No other cancer or immunologic disorder in the family. ALLERGIES: No known drug allergies. CURRENT MEDICATIONS: Include Vasotec, heparin, Lopressor, Norvasc, Lipitor, sliding scale insulin, Protonix, and folic acid. REVIEW OF SYSTEMS: No headaches, diplopia, epistaxis, dysphagia, chest pain, shortness of breath, nausea, vomiting, diarrhea, constipation. No dysuria, hematuria. No vaginal bleeding or discharge. Patient states that she had a mammogram several years ago, unremarkable. Patient states that 2-3 years ago she had upper and lower endoscopies with colonic polyps detected. The patient has chronic low back pain secondary to arthritis. CURRENT PHYSICAL: Vital Signs: BP 156/92, pulse 86, respiratory rate 20, afebrile. HEENT: PERRLA, EOM intact. Upper and lower dentures. Papillated tongue. No cervical, supraclavicular, or axillary nodes. Lungs: Clear. Cardiac: Regular rhythm. Breasts: No dominant masses. Abdomen: Soft. No organomegaly or masses. Extremities: Some clubbing. No significant edema. LABORATORY: Review of laboratory revealed that on September 06, 2018, hemoglobin was 10.5, hematocrit 31.5. Serum iron 32, TIBC 189 with iron saturation of 23%. On December 08, 2018, hemoglobin dropped from 10.5 to 7.7, hematocrit 31.5 to 24.8. Iron saturation dropped from 23% to 9%. Serum iron decreased from 32 to 17, suggesting a blood loss-type picture. The only other physical finding is that of clubbing, although the patient states that she is a nonsmoker. I would suggest evaluation based upon GI workup with upper and lower endoscopy looking for blood source for anemia. CAT scan evaluation in view of significant weight loss, as described. This can be done as an outpatient. YEMI RAMIREZ M.D. CHRIS/[id number]
[2018-12-10] MEDS: ATORVASTATIN CA 20 MG TABLET (FP) PO SCH (21:20)
[2018-12-11] MEDS: HEPARIN NA (PORCINE) 5,000 UNITS/ML 1ML VIAL SQ SCH (05:29)
[2018-12-11] MEDS: INSULIN SLIDING SCALE (NOVOLOG) 1 VIAL SQ SCH ×3 (05:29→18:01)
[2018-12-11] MEDS ORDERED: SODIUM PHOSPHATE/NA BIPHOS 133 ML ENEMA PR ONE (06:00)
[2018-12-11 06:52] LABS: HEMATOCRIT 31.3 % (32.4-45.2); HEMOGLOBIN 10.1 GM/dL (10.7-15.3); MCH 24.4 pg (25.7-33.7); MCHC 32.2 g/dl (32.0-36.0); MEAN CELL VOLUME 75.9 fl (80-96); MEAN PLT VOLUME 7.2 fl (7.5-11.1); PLATELET COUNT 317 K/MM3 (134-434); RBC 4.12 M/mm3 (3.60-5.2); RDW 20.5 % (11.6-15.6); WHITE BLOOD COUNT 4.7 K/mm3 (4.0-10.0)
[2018-12-11 07:26] LABS: CREATININE 0.7 mg/dL (0.55-1.3); MAGNESIUM 2.3 mg/dL (1.8-2.4); PHOSPHOROUS 3.2 mg/dL (2.5-4.9); POTASSIUM 4.1 mmol/L (3.5-5.1)
--- NOTE | 2018-12-11 08:32 | PN ---
Progress Note, Physician History of Present Illness: GI FOLLOW UP NOTE Patient examined and case discussed with Dr. Moore Patient finished bowel prep and is scheduled for colonoscopy today. Current Hg 10.1. Denies dysphagia, nausea, vomiting, abdominal pain, rectal bleeding. - Current Medication List Current Medications: Active Medications Amlodipine Besylate (Norvasc -) 10 mg PO DAILY [facility] Last Admin: 12/10/18 09:26 Dose: 10 mg Atorvastatin Calcium (Lipitor -) 20 mg PO HS [facility] Last Admin: 12/10/18 21:20 Dose: 20 mg Enalapril Maleate (Vasotec -) 20 mg PO DAILY [facility] Last Admin: 12/10/18 09:26 Dose: 20 mg Folic Acid (Folic Acid -) 1 mg PO DAILY [facility] Last Admin: 12/10/18 09:25 Dose: 1 mg Heparin Sodium (Porcine) (Heparin -) 5,000 unit SQ TID [facility] Last Admin: 12/11/18 05:29 Dose: Not Given Dextrose/Sodium Chloride (D5-Ns -) 1,000 mls @ 100 mls/hr IV ASDIR [facility] Stop: 12/12/18 05:14 Last Admin: 12/10/18 20:00 Dose: 100 mls/hr Insulin Aspart (Novolog Vial Sliding Scale -) 1 vial SQ Q6HPO [facility]; Protocol Last Admin: 12/11/18 05:29 Dose: Not Given Metoprolol Tartrate (Lopressor -) 50 mg PO DAILY [facility] Last Admin: 12/10/18 09:25 Dose: 50 mg Pantoprazole Sodium (Protonix -) 40 mg PO DAILY [facility] Last Admin: 12/10/18 09:26 Dose: 40 mg - Objective Vital Signs: Vital Signs Temperature 97.9 F 12/10/18 22:40 Pulse Rate 85 12/11/18 06:00 Respiratory Rate 17 12/11/18 06:00 Blood Pressure 161/79 12/11/18 06:00 O2 Sat by Pulse Oximetry (%) 97 12/11/18 00:10 Constitutional: Yes: No Distress, Calm Eyes: Yes: Conjunctiva Clear Cardiovascular: Yes: Regular Rate and Rhythm Respiratory: Yes: Regular, CTA Bilaterally Gastrointestinal: Yes: Normal Bowel Sounds, Soft, Other (tympany). No: WNL, Abdomen, Obese, Ascites, Distention, Hematemesis, Hemorrhoids, Hepatomegaly, Hernia, Hyperactive Bowel Sounds, Hypoactive Bowel Sounds, Melena, Palpable Mass , Pulsatile Mass, Rectal Bleeding, Splenomegaly, Tenderness, Tenderness, Epigastrium, Tenderness, Rebound, Vomiting Neurological: Yes: Alert Psychiatric: Yes: Alert Labs: CBC, BMP 12/11/18 05:30 INR, PTT INR 1.15 (0.83-1.09) H 12/08/18 19:31 Problem List - Problems (1) Anemia Assessment/Plan: -Hg 10.1 -monitor Hg daily -transfuse for Hg <8.0 -scheduled for colonoscopy -iron studies reviewed and retic count nl Code(s): D64.9 - ANEMIA, UNSPECIFIED Qualifiers: Anemia type: iron deficiency Iron deficiency anemia type: unspecified iron deficiency Qualified Code(s): D50.9 - Iron deficiency anemia, unspecified (2) Unintentional weight loss Assessment/Plan: -oncology on board -tumor markers neg Code(s): R63.4 - ABNORMAL WEIGHT LOSS
[2018-12-11] MEDS ORDERED: PT OWN MED DRAWER 7, Y5N ONE (09:22)
[2018-12-11] MEDS: ENALAPRIL MALEATE 10 MG TABLET (FP) PO SCH (09:30)
[2018-12-11] MEDS: FOLIC ACID 1 MG TABLET (FP) PO SCH (09:30)
[2018-12-11] MEDS: METOPROLOL TARTRATE 50 MG TABLET (FP) PO SCH (09:30)
[2018-12-11] MEDS: PANTOPRAZOLE 40 MG TABLET (FP) PO SCH (09:30)
[2018-12-11] MEDS: amLODIPine BESYLATE 10 MG TABLET (FP) PO SCH (09:30)
[2018-12-11] MEDS ORDERED: POLYETHYLENE GLYCOL 3350 255 GM BTL PO ONE (13:29)
--- NOTE | 2018-12-11 15:00 | PN ---
Physical Exam: SUBJECTIVE: Patient seen and examined at [facility]- no acute events overnight patient was slightly confused but not combative- she is going for colonoscopy today; denies CP/SOB/N/V OBJECTIVE: Vital Signs Period Temp Pulse Resp BP Sys/Erazo Pulse Ox Last 24 Hr 97.5 F-99.0 F 66-87 16-20 140-164/71-92 97-100 GENERAL: The patient is awake, alert,oriented to self and time; not place EYES: PEERLA: EOMI no scleral icterus . NECK: no JVD; no lymphadenopathy. LUNGS: CTA B/L; no rales, rhonchi or wheezing HEART: Regular rate and rhythm, S1, S2 without murmur, rub or gallop. ABDOMEN: Soft, nontender, nondistended, normoactive bowel sounds, no guarding, no rebound, no hepatosplenomegaly, no masses. EXTREMITIES: 2+ pulses, warm, well-perfused, no edema. PSYCH: Normal mood, normal affect. SKIN: Warm, dry, normal turgor, no rashes or lesions noted Laboratory Results - last 24 hr 12/10/18 12/10/18 12/10/18 08:15 17:48 23:40 WBC RBC Hgb Hct MCV MCH MCHC RDW Plt Count MPV Sodium Potassium Chloride Carbon Dioxide Anion Gap BUN Creatinine Est GFR (CKD-EPI)AfAm Est GFR (CKD-EPI)NonAf POC Glucometer 121 179 Random Glucose Calcium Phosphorus Magnesium LD Total TSH Stool Occult Blood Negative 12/11/18 12/11/18 12/11/18 05:18 05:30 05:30 WBC 4.7 RBC 4.12 Hgb 10.1 L Hct 31.3 L MCV 75.9 L MCH 24.4 L MCHC 32.2 RDW 20.5 H Plt Count 317 MPV 7.2 L Sodium 135 L Potassium 4.1 Chloride 103 Carbon Dioxide 25 Anion Gap 8 BUN 10 Creatinine 0.7 Est GFR (CKD-EPI)AfAm 92.21 Est GFR (CKD-EPI)NonAf 79.56 POC Glucometer 196 Random Glucose 199 H Calcium 9.0 Phosphorus 3.2 Magnesium 2.3 LD Total 212 TSH 3.20 Stool Occult Blood Active Medications Generic Name Dose Route Start Last Admin Trade Name Freq PRN Reason Stop Dose Admin Amlodipine Besylate 10 mg 12/10/18 07:29 12/11/18 09:30 Norvasc - PO 10 mg DAILY SHRUTHI Administration Atorvastatin Calcium 20 mg 12/09/18 22:00 12/10/18 21:20 Lipitor - PO 20 mg HS SHRUTHI Administration Enalapril Maleate 20 mg 12/09/18 10:00 12/11/18 09:30 Vasotec - PO 20 mg DAILY SHRUTHI Administration Folic Acid 1 mg 12/09/18 10:00 12/11/18 09:30 Folic Acid - PO 1 mg DAILY SHRUTHI Administration Heparin Sodium (Porcine) 5,000 unit 12/09/18 06:00 12/11/18 05:29 Heparin - SQ Not Given TID SHRUTHI Dextrose/Sodium Chloride 1,000 mls @ 100 mls/hr 12/10/18 19:15 12/10/18 20:00 D5-Ns - IV 12/12/18 05:14 100 mls/hr ASDIR SHRUTHI Administration Insulin Aspart 1 vial 12/09/18 00:00 12/11/18 05:29 Novolog Vial Sliding Scale - SQ Not Given Q6HPO [facility] Protocol Metoprolol Tartrate 50 mg 12/09/18 10:00 12/11/18 09:30 Lopressor - PO 50 mg DAILY SHRUTHI Administration Pantoprazole Sodium 40 mg 12/10/18 10:00 12/11/18 09:30 Protonix - PO 40 mg DAILY SHRUTHI Administration Sodium Phosphate 133 ml 12/11/18 14:00 Fleet Adult Rectal Enema - [place] 12/11/18 18:01 Q4H [facility] ASSESSMENT/PLAN: 82 yo F with a PMHx DM, GERD, arthritis, CAD on ASA, Plavix (s/p stent 6 years ago), was sent by her PCp because of a Hgb level in the 7's in the office. #Microcytic Anemia -GI Loss vs. bone marrow suppression from Methotrexate. -Presented with similar problem in 09/16. Patient refused GI workup. Refused Colonoscopy. -FU iron studies, -FOBT negative -Protonix 40mg IV BID -Dr. Moore Consulted - patient for colonoscopy and EGD tomorrow -tumor markers back - normal thus far -Heme consulted #CAD s/p stent -c/w ASA #HTN increased norvasc to 10mg from 5 #Asymptomatic Pyuria -low suspicion for UTI and asympomatic. -LE 3+, WBC 39 -Last admission with same findings. Low colonies. Decision was made to not continue Abx. -1x ceftriaxone in ED -Follow Cultures #DM -ISS -BGM ACHS #FEN -No iv fluids -monitor Problem List - Problems (1) Anemia Code(s): D64.9 - ANEMIA, UNSPECIFIED Qualifiers: Anemia type: iron deficiency Iron deficiency anemia type: unspecified iron deficiency Qualified Code(s): D50.9 - Iron deficiency anemia, unspecified (2) Arthritis, rheumatoid Code(s): M06.9 - RHEUMATOID ARTHRITIS, UNSPECIFIED (3) Unintentional weight loss Code(s): R63.4 - ABNORMAL WEIGHT LOSS (4) DM type 2 (diabetes mellitus, type 2) Code(s): E11.9 - TYPE 2 DIABETES MELLITUS WITHOUT COMPLICATIONS Visit type - Emergency Visit Emergency Visit: Yes ED Registration Date: 12/10/18 Care time: The patient presented to the Emergency Department on the above date and was hospitalized for further evaluation of their emergent condition. - New Patient This patient is new to me today: No - Critical Care Critical Care patient: No
--- NOTE | 2018-12-11 15:00 | PN ---
Teaching Attending Note Name of Resident: Bella Reyes ATTENDING PHYSICIAN STATEMENT I saw and evaluated the patient. I reviewed the resident's note and discussed the case with the resident. I agree with the resident's findings and plan as documented. SUBJECTIVE:asymptomatic. denies CP, SOB, fever, chills, N/V/C/D no reports of melena or BRBPR OBJECTIVE: Last Vital Signs Temp Pulse Resp BP Pulse Ox 99.0 F 87 16 163/85 100 12/11/18 14:20 12/11/18 14:20 12/11/18 14:20 12/11/18 14:20 12/11/18 14:20 General NAD ASSESSMENT AND PLAN: 83 yrs old F H/O Chronic anemia HTN, HLD, s/p stent placement 5 yrs ago (on ASA ), T2DM Diet controlled, RA that was diagnosed few months ago now on Methotrexate Admitted from PMD office for low Hb 7.7 but patient was admitted discharge in 08/2018 for same chief complaint of anemia, GI was consulted but patient refused further GI work-up. On admission patient noted Hb 7.7, received 1U PRBC transfusion and Hg increase to 8.0. Patient had endoscopy performed 09/2016 with showed normal JE junction but had retained food and was instructed to have repeat endoscopy done in 6 months, which she did not follow up on. Previous colonoscopy performed 05/2016 which showed diverticulosis, no colonic polyp. Patient c/o significant unintentional wt loss (30 Lbs in 1 yr) no obvious GI bleed, stool occult blood negative. 1. asymptomatic anemia- s/p 2 units PRBC. has significant weight loss. NPO for EGD/colonoscopy. Hgb stable. no more signs of bleeding. if negative will need further workup with imaging. tumor markers negative. GI and hematology on board 2. HTN- improved. cont medications 3. DM- diet controlled 4. RA- recently diagnosed and started on MTX. could be leading to pancytopenia however other elias look stable. will monitor 5. Dyslipidemia- statin 6. DVT ppx- hep sq 7.possible d/c later today pending endoscopy results
[2018-12-11] MEDS: ATORVASTATIN CA 20 MG TABLET (FP) PO SCH (21:29)
[2018-12-11] MEDS: SODIUM PHOSPHATE/NA BIPHOS 133 ML ENEMA PR SCH (22:10)
--- NOTE | 2018-12-11 23:06 | CON.CARD ---
Consult Consult Specialty:: ccardiology Reason for Consultation:: multiple CAD risks. - History of Present Illness Chief Complaint: Pt alert; weak; no chest pain, dizziness , or dyspnea. History of Present Illness: The patient is an 83 year old female with a significant past medical history of HTN, HLD, CAD (w/ stents), CKD, ALEXANDRO (s/p admission for anemia/transfusion 08/2018 ) who presents to the ED advised by PCP for abnormal lab results. The patient states she was advised to come to the ED because her HBG was 7.7; at baseline it is around 11. The patient was admitted at [facility] ER on 09/16 after outpatient blood work revealed her to be anemic and her HGB on admission was 7.8. The patient denies chest pain, shortness of breath or dizziness. - History Source History Provided By: Patient, Medical Record Limitations to Obtaining History: No Limitations - Past Medical History Cardio/Vascular: Yes: CAD, HTN, Hyperlipdemia Gastrointestinal: Yes: Diverticulosis Reproductive: Yes: Postmenopausal ...: No Heme/Onc: Yes: Anemia Psych: No: Addictions Endocrine: Yes: Diabetes Mellitus (DM II) - Past Surgical History Past Surgical History: Yes: Stent (5 years ago) - Alcohol/Substance Use Hx Alcohol Use: No - Smoking History Smoking history: Never smoked Have you smoked in the past 12 months: No Aproximately how many cigarettes per day: 0 - Social History Usual Living Arrangement: Alone () ADL: Independent 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 History of Recent Travel: No Home Medications - Allergies Allergies/Adverse Reactions: Allergies Allergy/AdvReac Type Severity Reaction Status Date / Time No Known Allergies Allergy Verified 12/08/18 18:55 - Home Medications Home Medications: Ambulatory Orders Enalapril Maleate [Vasotec] 20 mg PO DAILY 09/05/18 Folic Acid 1 mg PO DAILY 09/05/18 Iron Polysaccharides [Niferex-150 -] 150 mg PO DAILY 09/05/18 Metoprolol Tartrate [Lopressor -] 50 mg PO DAILY 09/05/18 Omeprazole 40 mg PO DAILY 09/05/18 Simvastatin 40 mg PO DAILY 09/05/18 Methotrexate [Mexate -] 10 mg PO Q7D 12/08/18 Amlodipine Besylate [Norvasc -] 10 mg PO DAILY #30 tablet 12/11/18 Family Disease History - Family Disease History Family Disease History: Other: Father (: 76: possible cancer), Mother ( : 74: PNA), Brother (1), Sister (2, 1 from CHF), Son (2, healthy), Daughter (3, 1 with PVD, HTN) Review of Systems - Review of Systems Constitutional: reports: Weakness Eyes: reports: No Symptoms HENT: reports: No Symptoms Neck: reports: No Symptoms Cardiovascular: reports: No Symptoms Respiratory: reports: No Symptoms Gastrointestinal: reports: No Symptoms Genitourinary: reports: No Symptoms Breasts: reports: No Symptoms Reported Musculoskeletal: reports: Muscle Weakness Integumentary: reports: No Symptoms Neurological: reports: Weakness Endocrine: reports: No Symptoms Hematology/Lymphatic: reports: No Symptoms Psychiatric: reports: No Symptoms - Risk Factors Known Risk Factors: Yes: Age, Diabetes Mellitus, Hypercholesterolemia, Hypertension, Physical Inactivity, Other (CAD-->PCI) Vital Signs: Vital Signs Temperature 99.0 F 12/11/18 14:20 Pulse Rate 87 12/11/18 15:00 Respiratory Rate 12/11/18 15:00 Blood Pressure 132/71 12/11/18 15:00 O2 Sat by Pulse Oximetry (%) 100 12/11/18 14:20 Constitutional: Yes: Calm Eyes: Yes: WNL HENT: Yes: WNL Neck: Yes: WNL Respiratory: Yes: WNL Gastrointestinal: Yes: WNL Renal/: Yes: WNL Cardiovascular: Yes: WNL JVD: No Carotid Bruit: No PMI: Non-Displaced Heart Sounds: Yes: S1, Split S2 Murmur: Yes: Systolic Murmur, Grade 1 Musculoskeletal: Yes: Muscle Weakness Extremities: Yes: WNL Edema: No Peripheral Pulses WNL: Yes Integumentary: Yes: WNL Neurological: Yes: Alert, Oriented, Weakness ...Motor Strength: WNL Psychiatric: Yes: WNL - Other Data Labs, Other Data: CBC, BMP 12/11/18 05:30 12/11/18 05:30 INR, PTT INR 1.15 (0.83-1.09) H 12/08/18 19:31 Abnormal Lab Results 12/08/18 12/11/18 12/12/18 19:31 05:30 05:30 Hgb 9.4 L Hct 29.7 L MCV 76.9 L MCH 24.4 L MCHC 31.8 L RDW 20.4 H MPV 7.2 L Haptoglobin 348 H Tiss Transglutamin IgG 7 H Tiss Transglutamin IgA 4 H Crossmatch See Detail Echo: Pending Imaging - Results Chest X-ray: Image Reviewed (enlarged heart; no acute pulmonary pathology) EKG: Image Reviewed (NSR; incomplete LBBB) Problem List - Problems (1) Anemia Assessment/Plan: For PRBCs F/u workup of etiology (as noted by air tester, pt with hx diverticulosis; for colonoscopy). Code(s): D64.9 - ANEMIA, UNSPECIFIED Qualifiers: Anemia type: iron deficiency Iron deficiency anemia type: unspecified iron deficiency Qualified Code(s): D50.9 - Iron deficiency anemia, unspecified (2) Arthritis, rheumatoid Code(s): M06.9 - RHEUMATOID ARTHRITIS, UNSPECIFIED (3) DM type 2 (diabetes mellitus, type 2) Code(s): E11.9 - TYPE 2 DIABETES MELLITUS WITHOUT COMPLICATIONS (4) GERD (gastroesophageal reflux disease) Code(s): K21.9 - GASTRO-ESOPHAGEAL REFLUX DISEASE WITHOUT ESOPHAGITIS (5) HTN (hypertension) Assessment/Plan: On metoprolol tartrate (change to bid for better 24 hour coverage, or change to metoprolol ER once daily), enalapril, and amlodipine. F/u ECHO for LVEF. Code(s): I10 - ESSENTIAL (PRIMARY) HYPERTENSION (6) CAD (coronary artery disease) Assessment/Plan: Hx PCI in 2013; denies hx NC. F/u ECHO for LVEF, wall motion, valve status. Code(s): I25.10 - ATHSCL HEART DISEASE OF [place] CORONARY ARTERY W/O ANG PCTRS
[2018-12-12] MEDS: INSULIN SLIDING SCALE (NOVOLOG) 1 VIAL SQ SCH ×5 (00:30→23:00)
[2018-12-12] MEDS: SODIUM PHOSPHATE/NA BIPHOS 133 ML ENEMA PR SCH (02:00)
[2018-12-12 06:50] LABS: HEMATOCRIT 29.7 % (32.4-45.2); HEMOGLOBIN 9.4 GM/dL (10.7-15.3); MCH 24.4 pg (25.7-33.7); MCHC 31.8 g/dl (32.0-36.0); MEAN CELL VOLUME 76.9 fl (80-96); MEAN PLT VOLUME 7.2 fl (7.5-11.1); PLATELET COUNT 309 K/MM3 (134-434); RBC 3.86 M/mm3 (3.60-5.2); RDW 20.4 % (11.6-15.6)
[2018-12-12] MEDS ORDERED: PT OWN MED DRAWER 7, Y5N ONE (09:31)
[2018-12-12] MEDS: FOLIC ACID 1 MG TABLET (FP) PO SCH (09:32)
[2018-12-12] MEDS: amLODIPine BESYLATE 10 MG TABLET (FP) PO SCH (09:32)
[2018-12-12] MEDS: PANTOPRAZOLE 40 MG TABLET (FP) PO SCH (09:32)
[2018-12-12] MEDS: METOPROLOL TARTRATE 50 MG TABLET (FP) PO SCH (09:32)
[2018-12-12] MEDS: ENALAPRIL MALEATE 10 MG TABLET (FP) PO SCH (09:32)
--- NOTE | 2018-12-12 09:59 | DS ---
Physical Exam: SUBJECTIVE: Patient seen and examined at bedside- no acute events overnight; patient is less confused this AM she is anxious to leave the hospital as she wasn't planning on staying hre for so long; her colonoscopy was cancelled this AM due to poor prep she will be getting it done sometime next week as an outpatient- she denies any CP/SOB/N/V OBJECTIVE: Vital Signs Period Temp Pulse Resp BP Sys/Erazo Pulse Ox Last 24 Hr 97.9 F-99.0 F 73-87 16-20 132-164/64-85 97-100 PHYSICAL EXAM GENERAL: The patient is awake, alert, and fully oriented, in no acute distress. EYES: PEERLA: EOMI no scleral icterus NECK: no JVD: no lymphadenopathy LUNGS: BCTA B/L; no rales, rhonchi or wheezing HEART: Regular rate and rhythm, S1, S2 without murmur, rub or gallop. ABDOMEN: Soft, nontender, nondistended, normoactive bowel sounds, no guarding, no rebound, no hepatosplenomegaly, no masses. EXTREMITIES: 2+ pulses, warm, well-perfused, no edema. PSYCH: Normal mood, normal affect. SKIN: Warm, dry, normal turgor, no rashes or lesions noted. LABS Laboratory Results - last 24 hr 12/08/18 12/10/18 12/11/18 19:31 05:30 05:30 WBC RBC Hgb Hct MCV MCH MCHC RDW Plt Count MPV Haptoglobin 348 H POC Glucometer Total Protein (PEP) 6.3 Albumin (PEP) 2.6 L Globulin 3.7 Albumin/Globulin Ratio 0.7 Beta Globulins 0.9 ELIO M-Ozzy Not observed Blood Type O POSITIVE Antibody Screen Negative Crossmatch See Detail 12/11/18 12/11/18 12/12/18 17:15 22:49 05:30 WBC 5.0 RBC 3.86 Hgb 9.4 L Hct 29.7 L MCV 76.9 L MCH 24.4 L MCHC 31.8 L RDW 20.4 H Plt Count 309 MPV 7.2 L Haptoglobin POC Glucometer 271 133 Total Protein (PEP) Albumin (PEP) Globulin Albumin/Globulin Ratio Beta Globulins ELIO M-Ozzy Blood Type Antibody Screen Crossmatch 12/12/18 05:50 WBC RBC Hgb Hct MCV MCH MCHC RDW Plt Count MPV Haptoglobin POC Glucometer 208 Total Protein (PEP) Albumin (PEP) Globulin Albumin/Globulin Ratio Beta Globulins ELIO M-Ozzy Blood Type Antibody Screen Crossmatch HOSPITAL COURSE: Date of Admission:12/10/18 Patient is an 83 yo F with a PMHx of HTN, HLD, s/p stent 5 years ago (on ASA), DM, RA, was sent by her PCP because of anemia. She had a CBC 3 weeks ago which showed a hemoglobin in the 7's and was told today to come to the ER to get a blood transfusion. She denies symptoms including SOB, fatigue, blood in stool but says she looks a little more pale than usual. She was also admitted in August for Anemia. Patient received 2 Units PRBC and was discharged. She refused further workup by GI including colonoscopy. After discharge she did not follow up with GI. Patient said she was sick of seeing doctors. Her last colonoscopy was 05/2016. She is currently taking iron pills at home. Patient was started on Methotrexate for her RA 6 weeks ago. Denies abdominal pain, dark or bright red stools, fever, chills, nausea, vomiting, chest pain, SOB, CLAY, back pain, changes in bowel or bladder habits. on arrival patients Hgb was 7.7- she received 1 unit in the ER; she was seen by Dr Moore who felt that he wanted her to get a colonscopy while in house. in [facility] since she endorses 30 lb weight loss over he year- she tumor markers were sent..all of which came back normal; a colonoscopy was attempted in house however due to poor prep had to be cancelled- patient was discahrged home with a GI follow up to get colonoscopy on the outpatient in addition, she has follow up with her PCP to get her Hgb rechecked and to get ct ab/plevis for malignancy w/u. in addition, we increased patients norvasc dose from 5 to 10 as her BP was elevated through her stay. Date of Discharge: 12/12/18 Minutes to complete discharge: 35 Discharge Summary Reason For Visit: ANEMIA Current Active Problems Anemia (Acute) Arthritis, rheumatoid (Acute) Symptomatic anemia (Acute) Unintentional weight loss (Acute) Condition: Stable - Instructions Diet, Activity, Other Instructions: You came to the emergency room after being sent in for low hemoglobin level by your primary care physician. You were seen by the rug cutter and he tried to perform a colonoscopy, however he could not see well. He recommends to have another colonoscopy in a week. In addition, we had a poker machine attendant/ oncologist come and evaluate you to address your ongoing weight loss. Please STOP your aspirin until followed up with your primary care physician and continue the rest of your home medications: We increased your Norvasc to 10mg daily Please follow up with Dr. 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 Moore within one week to likely have a colonoscopy performed In terms of your ongoing weight loss, we recommend you getting a cat scan of both your chest and your abdomen/pelvis. Please tell Dr. Morales. *if you notice any blood in your stools/urine, chest pains, shortness of breath , nausea/vomiting please return to the emergency room immediately Referrals: Arthur Talbot MD [Staff Physician] - 1 Week Bennett Moore MD [Staff Physician] - 1 Week Alfred Moe MD [Staff Physician] - Tj Morales [Primary Care Provider] - Disposition: HOME - Home Medications Comprehensive Discharge Medication List: Ambulatory Orders Enalapril Maleate [Vasotec] 20 mg PO DAILY 09/05/18 Folic Acid 1 mg PO DAILY 09/05/18 Iron Polysaccharides [Niferex-150 -] 150 mg PO DAILY 09/05/18 Metoprolol Tartrate [Lopressor -] 50 mg PO DAILY 09/05/18 Omeprazole 40 mg PO DAILY 09/05/18 Simvastatin 40 mg PO DAILY 09/05/18 Methotrexate [Mexate -] 10 mg PO Q7D 12/08/18 Amlodipine Besylate [Norvasc -] 10 mg PO DAILY #30 tablet 12/11/18 Problem List - Problems (1) Anemia Code(s): D64.9 - ANEMIA, UNSPECIFIED Qualifiers: Anemia type: iron deficiency Iron deficiency anemia type: unspecified iron deficiency Qualified Code(s): D50.9 - Iron deficiency anemia, unspecified (2) Arthritis, rheumatoid Code(s): M06.9 - RHEUMATOID ARTHRITIS, UNSPECIFIED (3) Unintentional weight loss Code(s): R63.4 - ABNORMAL WEIGHT LOSS (4) DM type 2 (diabetes mellitus, type 2) Code(s): E11.9 - TYPE 2 DIABETES MELLITUS WITHOUT COMPLICATIONS This patient is new to me today: No Emergency Visit: Yes ED Registration Date: 12/10/18 Care time: The patient presented to the Emergency Department on the above date and was hospitalized for further evaluation of their emergent condition. Critical Care patient: No - Discharge Referral Referred to [facility] Med P.C.: No
--- NOTE | 2018-12-12 10:16 | PN ---
Teaching Attending Note Name of Resident: Bella Reyes ATTENDING PHYSICIAN STATEMENT I saw and evaluated the patient. I reviewed the resident's note and discussed the case with the resident. I agree with the resident's findings and plan as documented. SUBJECTIVE:asymptomatic. denies Cp, SOB, fever, chills, N/V/C/D. attempt of colonoscopy yesterday however procedure aborted because was unable to visualize anything. pt was unable to complete prep the rest of the day OBJECTIVE: Last Vital Signs Temp Pulse Resp BP Pulse Ox 98.2 F 78 18 154/64 100 12/12/18 06:00 12/12/18 06:00 12/12/18 06:00 12/12/18 06:00 12/11/18 14:20 General NAD ASSESSMENT AND PLAN: 83 yrs old F H/O Chronic anemia HTN, HLD, s/p stent placement 5 yrs ago (on ASA ), T2DM Diet controlled, RA that was diagnosed few months ago now on Methotrexate Admitted from PMD office for low Hb 7.7 but patient was admitted discharge in 08/2018 for same chief complaint of anemia, GI was consulted but patient refused further GI work-up. On admission patient noted Hb 7.7, received 1U PRBC transfusion and Hg increase to 8.0. Patient had endoscopy performed 09/2016 with showed normal JE junction but had retained food and was instructed to have repeat endoscopy done in 6 months, which she did not follow up on. Previous colonoscopy performed 05/2016 which showed diverticulosis, no colonic polyp. Patient c/o significant unintentional wt loss (30 Lbs in 1 yr) no obvious GI bleed, stool occult blood negative. 1. asymptomatic anemia- s/p 2 units PRBC. has significant weight loss. poor prep for colonoscopy. unable to repeat today as pt was unable to tolerate prep. will need to try again as outpatient. can also have CT scans as outpatient to r/ o malignancy. tumor markers negative. GI and hematology on board 2. HTN- improved. cont medications 3. DM- diet controlled 4. RA- recently diagnosed and started on MTX. could be leading to pancytopenia however other elias look stable. will monitor 5. Dyslipidemia- statin 6. DVT ppx- hep sq 7.D/c home
[2018-12-12] MEDS: HEPARIN NA (PORCINE) 5,000 UNITS/ML 1ML VIAL SQ SCH ×2 (14:17→21:00)
[2018-12-12 17:15] LABS: GLIADIN ANTIBODY IGA 7 units (0-19); GLIADIN ANTIBODY IGG 12 units (0-19); TRANSGLUTAMINASE IGG 7 U/mL (0-5)
[2018-12-12] MEDS: ATORVASTATIN CA 20 MG TABLET (FP) PO SCH (21:00)
--- NOTE | 2018-12-13 02:41 | PN ---
Progress Note, Physician Chief Complaint: Pt trying to complete prep for 2nd attempt at colonoscopy; feels nauseous. History of Present Illness: The patient is an 83 year old black female with a significant past medical history of HTN, HLD, CAD (w/ stents), CKD, ALEXANDRO (s/p admission for anemia/ transfusion 08/2018) who presents to the ED advised by PCP for abnormal lab results. The patient states she was advised to come to the ED because her HBG was 7.7; at baseline it is around 11. The patient was admitted at [facility] ER on 09/16 after outpatient blood work revealed her to be anemic and her HGB on admission was 7.8. The patient denies chest pain, shortness of breath or dizziness. - Current Medication List Current Medications: Active Medications Amlodipine Besylate (Norvasc -) 10 mg PO DAILY [facility] Last Admin: 12/12/18 09:32 Dose: 10 mg Atorvastatin Calcium (Lipitor -) 20 mg PO HS [facility] Last Admin: 12/12/18 21:00 Dose: 20 mg Enalapril Maleate (Vasotec -) 20 mg PO DAILY [facility] Last Admin: 12/12/18 09:32 Dose: 20 mg Folic Acid (Folic Acid -) 1 mg PO DAILY [facility] Last Admin: 12/12/18 09:32 Dose: 1 mg Heparin Sodium (Porcine) (Heparin -) 5,000 unit SQ TID [facility] Last Admin: 12/12/18 21:00 Dose: 5,000 unit Insulin Aspart (Novolog Vial Sliding Scale -) 1 vial SQ Q6HPO [facility]; Protocol Last Admin: 12/12/18 18:02 Dose: 2 unit Metoprolol Tartrate (Lopressor -) 50 mg PO DAILY [facility] Last Admin: 12/12/18 09:32 Dose: 50 mg Pantoprazole Sodium (Protonix -) 40 mg PO DAILY [facility] Last Admin: 12/12/18 09:32 Dose: 40 mg Polyethylene Glycol (Miralax (For Bowel Prep) -) 255 gm PO ONCE ONE Stop: 12/13/18 15:05 - Objective Vital Signs: Vital Signs Temperature 97.9 F 12/12/18 22:00 Pulse Rate 62 12/12/18 22:00 Respiratory Rate 18 12/12/18 23:06 Blood Pressure 137/56 L 12/12/18 22:00 O2 Sat by Pulse Oximetry (%) 99 12/12/18 23:06 Constitutional: Yes: Anxious Eyes: Yes: WNL HENT: Yes: WNL Neck: Yes: WNL Cardiovascular: Yes: S1, S2 (split) Respiratory: Yes: WNL Gastrointestinal: Yes: Soft ...Rectal Exam: Yes: Other (for colonoscopy) Genitourinary: Yes: WNL Breast(s): Yes: WNL Musculoskeletal: Yes: Muscle Weakness Extremities: Yes: WNL Edema: No Peripheral Pulses WNL: Yes Integumentary: Yes: WNL Neurological: Yes: Alert, Oriented, Weakness Psychiatric: Yes: Alert, Oriented Labs: CBC, BMP 12/12/18 05:30 12/11/18 05:30 INR, PTT INR 1.15 (0.83-1.09) H 12/08/18 19:31 Abnormal Lab Results 12/08/18 12/11/18 12/12/18 19:31 05:30 05:30 Hgb 9.4 L Hct 29.7 L MCV 76.9 L MCH 24.4 L MCHC 31.8 L RDW 20.4 H MPV 7.2 L Haptoglobin 348 H Tiss Transglutamin IgG 7 H Tiss Transglutamin IgA 4 H Crossmatch See Detail - ....Imaging Other: Image Reviewed (telemetry: NSR; no arrhythmias) Problem List - Problems (1) Anemia Assessment/Plan: Received 2 U PRBCs; stool quaiac negative. F/u workup of etiology (as noted by clerk of works, pt with hx diverticulosis; for colonoscopy repeat). Code(s): D64.9 - ANEMIA, UNSPECIFIED Qualifiers: Anemia type: iron deficiency Iron deficiency anemia type: unspecified iron deficiency Qualified Code(s): D50.9 - Iron deficiency anemia, unspecified (2) Arthritis, rheumatoid Assessment/Plan: Pt ws on methotrexate. Code(s): M06.9 - RHEUMATOID ARTHRITIS, UNSPECIFIED (3) DM type 2 (diabetes mellitus, type 2) Code(s): E11.9 - TYPE 2 DIABETES MELLITUS WITHOUT COMPLICATIONS (4) HTN (hypertension) Assessment/Plan: On metoprolol tartrate (change to bid for better 24 hour coverage, or change to metoprolol ER once daily), enalapril, and amlodipine. F/u ECHO for LVEF. Code(s): I10 - ESSENTIAL (PRIMARY) HYPERTENSION (5) CAD (coronary artery disease) Assessment/Plan: Hx PCI in 2013; denies hx IN. F/u ECHO for LVEF, wall motion, valve status. Code(s): I25.10 - ATHSCL HEART DISEASE OF [place] CORONARY ARTERY W/O ANG PCTRS
[2018-12-13] MEDS: HEPARIN NA (PORCINE) 5,000 UNITS/ML 1ML VIAL SQ SCH ×3 (05:57→21:36)
[2018-12-13] MEDS: INSULIN SLIDING SCALE (NOVOLOG) 1 VIAL SQ SCH ×4 (05:57→23:44)
--- NOTE | 2018-12-13 06:40 | PN ---
Progress Note (short form) - Note Progress Note: Coverage for Dr. Zahraa Henriquez Chief Complaint: Events noted, notes reviewed, denies any chest pain or dyspnea , sinus rhythm noted, as per nursing staff for colonoscopy on Saturday, / home cancelled History of Present Illness: Seen and examined on telemetry. Events noted, notes reviewed, denies any chest pain or dyspnea, sinus rhythm noted, as per nursing staff for colonoscopy on Saturday, D/ home cancelled - Current Medication List Current Medications Amlodipine Besylate (Norvasc -) 10 mg PO DAILY [facility] Last Admin: 12/12/18 09:32 Dose: 10 mg Atorvastatin Calcium (Lipitor -) 20 mg PO HS [facility] Last Admin: 12/12/18 21:00 Dose: 20 mg Enalapril Maleate (Vasotec -) 20 mg PO DAILY [facility] Last Admin: 12/12/18 09:32 Dose: 20 mg Folic Acid (Folic Acid -) 1 mg PO DAILY [facility] Last Admin: 12/12/18 09:32 Dose: 1 mg Heparin Sodium (Porcine) (Heparin -) 5,000 unit SQ TID [facility] Last Admin: 12/13/18 05:57 Dose: 5,000 unit Insulin Aspart (Novolog Vial Sliding Scale -) 1 vial SQ Q6HPO [facility]; Protocol Last Admin: 12/13/18 05:57 Dose: 2 unit Metoprolol Tartrate (Lopressor -) 50 mg PO DAILY [facility] Last Admin: 12/12/18 09:32 Dose: 50 mg Pantoprazole Sodium (Protonix -) 40 mg PO DAILY [facility] Last Admin: 12/12/18 09:32 Dose: 40 mg Polyethylene Glycol (Miralax (For Bowel Prep) -) 255 gm PO ONCE ONE Stop: 12/13/18 15:05 Review of Systems Cardiovascular: As noted above Respiratory: denies: Cough or Sputum Production Gastrointestinal: denies: Nausea, Vomiting, Diarrhea, Constipation or Abdominal Discomfort Musculoskeletal: No Symptoms Reported Endocrine: No Symptoms Reported - Objective Vital Signs: Last Vital Signs Temp Pulse Resp BP Pulse Ox 98 F 65 20 136/56 L 99 12/13/18 02:00 12/13/18 04:00 12/13/18 05:24 12/13/18 04:00 12/13/18 05:24 Intake & Output 12/10/18 12/11/18 12/12/1819 23:59 23:59 23:59 23:59 Intake Total 3230 2500 3420 50 Balance 3230 2500 3420 50 Neck: Supple Negative JVD No Bruit Cardiovascular: S1 S2 Regular Rate and Rhythm Grade 1/6 ELVIRA Respiratory: clear to A&P Bilaterally Gastrointestinal: Soft Benign Normal Bowel Sounds Ext: Negative Edema Labs: CBC, BMP 12/12/18 05:30 12/11/18 05:30 Hepatic Panel Total Bilirubin 0.4 mg/dL (0.2-1) 12/10/18 05:30 AST 12 U/L (15-37) L 12/10/18 05:30 ALT 7 U/L (13-61) L 12/10/18 05:30 Alkaline Phosphatase 71 U/L (45-117) 12/10/18 05:30 Albumin 2.3 g/dl (3.4-5.0) L 12/10/18 05:30 INR, PTT INR 1.15 (0.83-1.09) H 12/08/18 19:31 Assessment/Plan ASSESSMENT: 1. CAD post PCI stent angina pectoris stable 2. 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 HTN 4. DM 5. Hypercholesterolemia 6. Anemia, source to be determined 7. Rheumatoid arthritis PLAN: 1. Continue B-Blockers change to Toprol XL 2. Continue Vasotec 3. Continue Norvasc 4. Consider SCD as alternative to SQ Heparin, anemia possible gastrointestinal source of bleed 5. There are no absolute contraindications in proceeding with planned GI evaluation considering that there is no evidence of ACS and/or decompensated CHF and/or malignant ventricular arrhythmia 6. Can be transferred to floor care from the cardiovascular point of view, D/C monitor Francoise Miranda M.D.
[2018-12-13] MEDS ORDERED: PT OWN MED DRAWER 7, Y5N ONE (10:23)
[2018-12-13] MEDS: ENALAPRIL MALEATE 10 MG TABLET (FP) PO SCH (10:27)
[2018-12-13] MEDS: PANTOPRAZOLE 40 MG TABLET (FP) PO SCH (10:27)
[2018-12-13] MEDS: amLODIPine BESYLATE 10 MG TABLET (FP) PO SCH (10:27)
[2018-12-13] MEDS: FOLIC ACID 1 MG TABLET (FP) PO SCH (10:27)
[2018-12-13] MEDS: METOPROLOL TARTRATE 50 MG TABLET (FP) PO SCH (12:41)
--- NOTE | 2018-12-13 13:16 | PN ---
Progress Note (short form) - Note Progress Note: asymptomatic. no reports of BRBPR or melena. denies Cp, SOB, fever, chills, N/V/ C?D Current Medications Generic Name Dose Route Start Last Admin Trade Name Steffanie PRN Reason Stop Dose Admin Amlodipine Besylate 10 mg 12/10/18 07:29 12/13/18 10:27 Norvasc - PO 10 mg DAILY SHRUTHI Administration Atorvastatin Calcium 20 mg 12/09/18 22:00 12/12/18 21:00 Lipitor - PO 20 mg HS SHRUTHI Administration Enalapril Maleate 20 mg 12/09/18 10:00 12/13/18 10:27 Vasotec - PO 20 mg DAILY SHRUTHI Administration Folic Acid 1 mg 12/09/18 10:00 12/13/18 10:27 Folic Acid - PO 1 mg DAILY SHRUTHI Administration Heparin Sodium (Porcine) 5,000 unit 12/09/18 06:00 12/13/18 05:57 Heparin - SQ 5,000 unit TID SHRUTHI Administration Insulin Aspart 1 vial 12/09/18 00:00 12/13/18 12:42 Novolog Vial Sliding Scale - SQ Not Given Q6HPO [facility] Protocol Metoprolol Tartrate 50 mg 12/09/18 10:00 12/13/18 12:41 Lopressor - PO 50 mg DAILY SHRUTHI Administration Pantoprazole Sodium 40 mg 12/10/18 10:00 12/13/18 10:27 Protonix - PO 40 mg DAILY SHR[facility]HI Administration Polyethylene Glycol 255 gm 12/13/18 15:04 Miralax (For Bowel Prep) - PO 12/13/18 15:05 ONCE ONE Last Vital Signs Temp Pulse Resp BP Pulse Ox 98.2 F 85 20 148/68 99 12/13/18 10:00 12/13/18 10:00 12/13/18 10:00 12/13/18 10:00 12/13/18 05:24 General NAD CV S1 S2 + Lungs CTA B/L no wheezing/rales/rhonchi Abdomen soft NT/ND Extremities no pedal edema ASSESSMENT AND PLAN: 83 yrs old F H/O Chronic anemia HTN, HLD, s/p stent placement 5 yrs ago (on ASA ), T2DM Diet controlled, RA that was diagnosed few months ago now on Methotrexate Admitted from PMD office for low Hb 7.7 but patient was admitted discharge in 08/2018 for same chief complaint of anemia, GI was consulted but patient refused further GI work-up. On admission patient noted Hb 7.7, received 1U PRBC transfusion and Hg increase to 8.0. Patient had endoscopy performed 09/2016 with showed normal JE junction but had retained food and was instructed to have repeat endoscopy done in 6 months, which she did not follow up on. Previous colonoscopy performed 05/2016 which showed diverticulosis, no colonic polyp. Patient c/o significant unintentional wt loss (30 Lbs in 1 yr) no obvious GI bleed, stool occult blood negative. 1. asymptomatic anemia- s/p 2 units PRBC. has significant weight loss. poor prep for colonoscopy and was unable to tolerate bowel prep on . plan for colonoscopy on Saturday per patient and family. have been unable to reach GI at this time. will need CT scan as outpatient. tumor markers negative. GI and hematology on board 2. HTN- improved. cont medications 3. DM- diet controlled 4. RA- recently diagnosed and started on MTX. could be leading to pancytopenia however other elias look stable. will monitor 5. Dyslipidemia- statin 6. DVT ppx- hep sq 7.can d/c cardiac monitoring Visit type - Emergency Visit Emergency Visit: Yes ED Registration Date: 12/10/18 Care time: The patient presented to the Emergency Department on the above date and was hospitalized for further evaluation of their emergent condition. - New Patient This patient is new to me today: No - Critical Care Critical Care patient: No - Discharge Referral Referred to [facility] Med P.C.: No
[2018-12-13] MEDS ORDERED: POLYETHYLENE GLYCOL 3350 255 GM BTL PO ONE (15:04)
[2018-12-13] MEDS: ATORVASTATIN CA 20 MG TABLET (FP) PO SCH (21:36)
[2018-12-14] MEDS ORDERED: INSULIN (NOVOLOG) ASPART 100 UNITS/ML 10ML VIAL ONE ×2 (05:58→14:50)
[2018-12-14] MEDS: HEPARIN NA (PORCINE) 5,000 UNITS/ML 1ML VIAL SQ SCH ×2 (06:40→13:12)
[2018-12-14] MEDS: INSULIN SLIDING SCALE (NOVOLOG) 1 VIAL SQ SCH ×3 (06:41→17:04)
--- NOTE | 2018-12-14 07:07 | PN ---
Progress Note (short form) - Note Progress Note: Coverage for Dr. Zahraa Henriquez Chief Complaint: Events noted, notes reviewed, denies any chest pain or dyspnea , sinus rhythm noted, for colonoscopy on Saturday History of Present Illness: Seen and examined on telemetry. Events noted, notes reviewed, denies any chest pain or dyspnea, sinus rhythm noted, for colonoscopy on Saturday - Current Medication List Current Medications Amlodipine Besylate (Norvasc -) 10 mg PO DAILY [facility] Last Admin: 12/13/18 10:27 Dose: 10 mg Atorvastatin Calcium (Lipitor -) 20 mg PO HS [facility] Last Admin: 12/13/18 21:36 Dose: 20 mg Enalapril Maleate (Vasotec -) 20 mg PO DAILY [facility] Last Admin: 12/13/18 10:27 Dose: 20 mg Folic Acid (Folic Acid -) 1 mg PO DAILY [facility] Last Admin: 12/13/18 10:27 Dose: 1 mg Heparin Sodium (Porcine) (Heparin -) 5,000 unit SQ TID [facility] Last Admin: 12/14/18 06:40 Dose: 5,000 unit Insulin Aspart (Novolog Vial Sliding Scale -) 1 vial SQ Q6HPO [facility]; Protocol Last Admin: 12/14/18 06:41 Dose: 2 unit Metoprolol Tartrate (Lopressor -) 50 mg PO DAILY [facility] Last Admin: 12/13/18 12:41 Dose: 50 mg Pantoprazole Sodium (Protonix -) 40 mg PO DAILY [facility] Last Admin: 12/13/18 10:27 Dose: 40 mg Review of Systems Cardiovascular: As noted above Respiratory: denies: Cough or Sputum Production Gastrointestinal: denies: Nausea, Vomiting, Diarrhea, Constipation or Abdominal Discomfort Musculoskeletal: No Symptoms Reported Endocrine: No Symptoms Reported - Objective Vital Signs: Last Vital Signs Temp Pulse Resp BP Pulse Ox 97.7 F 70 18 141/63 100 12/14/18 06:00 12/14/18 06:00 12/14/18 06:00 12/14/18 06:00 12/13/18 21:00 Intake & Output 12/11/18 12/12/18 12/13/18 12/14/18 23:59 23:59 23:59 23:59 Intake Total 2500 3420 2250 150 Balance 2500 3420 2250 150 Neck: Supple Negative JVD No Bruit Cardiovascular: S1 S2 Regular Rate and Rhythm Grade 1/6 ELVIRA Respiratory: clear to A&P Bilaterally Gastrointestinal: Soft Benign Normal Bowel Sounds Ext: Negative Edema Labs: CBC, BMP 12/12/18 05:30 12/11/18 05:30 Hepatic Panel Total Bilirubin 0.4 mg/dL (0.2-1) 12/10/18 05:30 AST 12 U/L (15-37) L 12/10/18 05:30 ALT 7 U/L (13-61) L 12/10/18 05:30 Alkaline Phosphatase 71 U/L (45-117) 12/10/18 05:30 Albumin 2.3 g/dl (3.4-5.0) L 12/10/18 05:30 INR, PTT INR 1.15 (0.83-1.09) H 12/08/18 19:31 Assessment/Plan ASSESSMENT: 1. CAD post PCI/stent angina pectoris, clinically stable 2. 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 HTN 4. DM 5. Hypercholesterolemia 6. Anemia, source to be determined 7. Rheumatoid arthritis PLAN: 1. Continue B-Blockers and as outlined change to Toprol XL 2. Continue Vasotec 3. Continue Norvasc 4. Consider SCD as alternative to SQ Heparin, anemia possible gastrointestinal source of bleed 5. There are no absolute contraindications in proceeding with planned GI evaluation considering that there is no evidence of ACS and/or decompensated CHF and/or malignant ventricular arrhythmia 6. As outlined in yesterday's note can be transferred to floor care from the cardiovascular point of view, D/C monitor Francoise Miranda M.D.
--- NOTE | 2018-12-14 07:17 | PN ---
Physical Exam: SUBJECTIVE: No complaints today. Pt slept well without any signs of bleeding in stool or urine. No n/v noted. Pt to have colonoscopy tomorrow and has been transferred to [facility] [place] cardiac monitoring. OBJECTIVE: Vital Signs Period Temp Pulse Resp BP Sys/Erazo Pulse Ox Last 24 Hr 97.7 F-98.2 F 68-85 18-20 123-148/57-83 100-100 GENERAL: The patient is awake, alert, and fully oriented, in no acute distress. EYES: PEERLA: EOMI no scleral icterus NECK: no JVD: no lymphadenopathy LUNGS: BCTA B/L; no rales, rhonchi or wheezing HEART: RRR, S1, S2 without murmur, rub or gallop. ABDOMEN: Soft, nontender, slightly distended, but soft, normoactive bowel sounds , no guarding, no rebound EXTREMITIES: 2+ pulses, warm, well-perfused, no edema. PSYCH: Normal mood, normal affect. SKIN: Warm, dry, normal turgor, no rashes or lesions noted. Laboratory Results - last 24 hr 12/13/18 12/13/18 12/13/18 12:12 16:57 23:43 POC Glucometer 184 229 135 12/14/18 05:46 POC Glucometer 156 Active Medications Generic Name Dose Route Start Last Admin Trade Name Urbanoq PRN Reason Stop Dose Admin Amlodipine Besylate 10 mg 12/10/18 07:29 12/13/18 10:27 Norvasc - PO 10 mg DAILY SHRUTHI Administration Atorvastatin Calcium 20 mg 12/09/18 22:00 12/13/18 21:36 Lipitor - PO 20 mg HS SHRUTHI Administration Enalapril Maleate 20 mg 12/09/18 10:00 12/13/18 10:27 Vasotec - PO 20 mg DAILY SHRUTHI Administration Folic Acid 1 mg 12/09/18 10:00 12/13/18 10:27 Folic Acid - PO 1 mg DAILY SHRUTHI Administration Heparin Sodium (Porcine) 5,000 unit 12/09/18 06:00 12/14/18 06:40 Heparin - SQ 5,000 unit TID SHRUTHI Administration Insulin Aspart 1 vial 12/09/18 00:00 12/14/18 06:41 Novolog Vial Sliding Scale - SQ 2 unit Q6HPO SHRUTHI Administration Protocol Metoprolol Tartrate 50 mg 12/09/18 10:00 12/13/18 12:41 Lopressor - PO 50 mg DAILY SHRUTHI Administration Pantoprazole Sodium 40 mg 12/10/18 10:00 12/13/18 10:27 Protonix - PO 40 mg DAILY SHRUTHI Administration ASSESSMENT/PLAN: Asymptomatic Anemia HTN DM RA HLD Pt to have colonoscopy tomorrow at 1pm. Will order Miralax prep today (two days for better visualization during procedure) HTN controlled currently --Continue Lopressor 50mg qdaily --Continue Norvasc 10mg qdaily Continue Lipitor 20mg HS PO Continue ISS --Total 8 U given for 24h needs --Continue diet control FEN: Fluids: None indicated Nutrition: NPO after midnight; clears today during prep PPX: DVT - Heparin SQ TID GI - Protonix daily Dispo: Colonoscopy tomorrow; dc cardiac monitoring and transferred to /S Case discussed with Dr. Alexander Barrett, DO - IM PGY-2 Visit type - Emergency Visit Emergency Visit: Yes ED Registration Date: 12/10/18 Care time: The patient presented to the Emergency Department on the above date and was hospitalized for further evaluation of their emergent condition. - New Patient This patient is new to me today: No - Critical Care Critical Care patient: No - Discharge Referral Referred to [facility] Med P.C.: No
[2018-12-14] MEDS ORDERED: POLYETHYLENE GLYCOL 3350 255 GM BTL PO ONE ×2 (09:18→12:18)
[2018-12-14] MEDS: amLODIPine BESYLATE 10 MG TABLET (FP) PO SCH (09:45)
[2018-12-14] MEDS: PANTOPRAZOLE 40 MG TABLET (FP) PO SCH (09:45)
[2018-12-14] MEDS: ENALAPRIL MALEATE 10 MG TABLET (FP) PO SCH (09:45)
[2018-12-14] MEDS: FOLIC ACID 1 MG TABLET (FP) PO SCH (09:45)
--- NOTE | 2018-12-14 10:37 | PN ---
Teaching Attending Note Name of Resident: Дмитрий Barrett ATTENDING PHYSICIAN STATEMENT I saw and evaluated the patient. I reviewed the resident's note and discussed the case with the resident. I agree with the resident's findings and plan as documented. SUBJECTIVE: asymptomatic. no reports of BRBPR or melena. denies Cp, SOB, fver, chills, N/V/C/D OBJECTIVE: Last Vital Signs Temp Pulse Resp BP Pulse Ox 97.7 F 70 18 141/63 100 12/14/18 06:00 12/14/18 06:00 12/14/18 06:00 12/14/18 06:00 12/13/18 21:00 General NAD CV S1 S2 + Lungs CTA B/L no wheezing/rales/rhonchi Abdomen soft NT/ND Extremities no pedal edema ASSESSMENT AND PLAN: 83 yrs old F H/O Chronic anemia HTN, HLD, s/p stent placement 5 yrs ago (on ASA ), T2DM Diet controlled, RA that was diagnosed few months ago now on Methotrexate Admitted from PMD office for low Hb 7.7 but patient was admitted discharge in 08/2018 for same chief complaint of anemia, GI was consulted but patient refused further GI work-up. On admission patient noted Hb 7.7, received 1U PRBC transfusion and Hg increase to 8.0. Patient had endoscopy performed 09/2016 with showed normal JE junction but had retained food and was instructed to have repeat endoscopy done in 6 months, which she did not follow up on. Previous colonoscopy performed 05/2016 which showed diverticulosis, no colonic polyp. Patient c/o significant unintentional wt loss (30 Lbs in 1 yr) no obvious GI bleed, stool occult blood negative. 1. asymptomatic anemia- s/p 2 units PRBC. has significant weight loss. poor prep for colonoscopy and was unable to tolerate bowel prep on . plan for colonoscopy on Saturday. cont bowel prep yesterday adn today. clear liquid diet. NPO tonight. will need CT scan as outpatient. tumor markers negative. GI and hematology on board 2. HTN- improved. cont medications 3. DM- diet controlled 4. RA- recently diagnosed and started on MTX. could be leading to pancytopenia however other elias look stable. will monitor 5. Dyslipidemia- statin 6. DVT ppx- hep sq 7.anticipate d/c tomorrow pending colonoscopy
[2018-12-14] MEDS ORDERED: DEXTROSE 5%-0.45% SALINE 1,000 ML IV SCH (18:15)
[2018-12-14] MEDS ORDERED: ATORVASTATIN CA 20 MG TABLET (FP) PO SCH (22:00)
[2018-12-15] MEDS: INSULIN SLIDING SCALE (NOVOLOG) 1 VIAL SQ SCH ×4 (00:13→11:50)
[2018-12-15 07:06] LABS: HEMATOCRIT 29.6 % (32.4-45.2); HEMOGLOBIN 9.5 GM/dL (10.7-15.3); MCH 24.7 pg (25.7-33.7); MEAN CELL VOLUME 77.3 fl (80-96); MEAN PLT VOLUME 7.4 fl (7.5-11.1); PLATELET COUNT 338 K/MM3 (134-434); RBC 3.83 M/mm3 (3.60-5.2); RDW 20.7 % (11.6-15.6); WHITE BLOOD COUNT 4.1 K/mm3 (4.0-10.0)
[2018-12-15] MEDS ORDERED: SODIUM PHOSPHATE/NA BIPHOS 133 ML ENEMA PR ONE ×2 (09:00→10:00)
[2018-12-15] MEDS ORDERED: FOLIC ACID 1 MG TABLET (FP) PO SCH (10:00)
[2018-12-15] MEDS ORDERED: PANTOPRAZOLE 40 MG TABLET (FP) PO SCH (10:00)
[2018-12-15] MEDS ORDERED: amLODIPine BESYLATE 10 MG TABLET (FP) PO SCH (10:00)
[2018-12-15] MEDS ORDERED: ENALAPRIL MALEATE 10 MG TABLET (FP) PO SCH (10:00)
[2018-12-15 10:07] LABS: HGB SOLUBILITY Negative (Negative); Hgb A 98.3 % (96.4-98.8); Hgb C 0 % (0.0); Hgb F 0 % (0.0-2.0); Hgb S 0 % (0.0)
--- NOTE | 2018-12-15 12:26 | PN ---
Progress Note, Physician History of Present Illness: The patient is an 83 year old female with a significant past medical history of HTN, HLD, CAD (w/ stents), CKD, ALEXANDRO (s/p admission for anemia/transfusion 08/2018 ) who presents to the ED advised by PCP for abnormal lab results. The patient states she was advised to come to the ED because her HBG was 7.7; at baseline it is around 11. The patient was admitted at [facility] ER on 09/16 after outpatient blood work revealed her to be anemic and her HGB on admission was 7.8. - Current Medication List Current Medications: Active Medications Amlodipine Besylate (Norvasc -) 10 mg PO DAILY [facility] Last Admin: 12/15/18 10:31 Dose: 10 mg Atorvastatin Calcium (Lipitor -) 20 mg PO HS [facility] Last Admin: 12/14/18 21:52 Dose: 20 mg Enalapril Maleate (Vasotec -) 20 mg PO DAILY [facility] Last Admin: 12/15/18 10:28 Dose: 20 mg Folic Acid (Folic Acid -) 1 mg PO DAILY [facility] Last Admin: 12/15/18 10:31 Dose: 1 mg Dextrose/Sodium Chloride (D5-1/2ns -) 1,000 mls @ 50 mls/hr IV ASDIR [facility] Last Admin: 12/14/18 18:33 Dose: 50 mls/hr Insulin Aspart (Novolog Vial Sliding Scale -) 1 vial SQ Q6HPO [facility]; Protocol Last Admin: 12/15/18 11:50 Dose: Not Given Metoprolol Succinate (Toprol Xl -) 50 mg PO DAILY [facility] Last Admin: 12/15/18 10:30 Dose: 50 mg Pantoprazole Sodium (Protonix -) 40 mg PO DAILY [facility] Last Admin: 12/15/18 10:31 Dose: 40 mg - Objective Vital Signs: Vital Signs Temperature 98.8 F 12/15/18 09:17 Pulse Rate 73 12/15/18 09:17 Respiratory Rate 18 12/15/18 09:17 Blood Pressure 141/63 12/15/18 09:17 O2 Sat by Pulse Oximetry (%) 95 12/15/18 09:00 Eyes: Yes: WNL, Conjunctiva Clear, EOM Intact HENT: Yes: WNL, Atraumatic, Normocephalic Neck: Yes: WNL, Supple, Trachea Midline Cardiovascular: Yes: WNL, Regular Rate and Rhythm Respiratory: Yes: WNL, Regular, CTA Bilaterally Gastrointestinal: Yes: WNL, Normal Bowel Sounds Genitourinary: Yes: WNL Musculoskeletal: Yes: WNL Extremities: Yes: WNL Edema: No Integumentary: Yes: WNL Neurological: Yes: WNL, Alert, Oriented ...Motor Strength: WNL Psychiatric: Yes: WNL Labs: CBC, BMP 12/15/18 06:20 12/11/18 05:30 INR, PTT INR 1.15 (0.83-1.09) H 12/08/18 19:31 Assessment/Plan 1. CAD post PCI/stent angina pectoris, clinically stable 2. 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 HTN 4. DM 5. Hypercholesterolemia 6. Anemia, source to be determined 7. Rheumatoid arthritis PLAN: 1. Continue B-Blockers and as outlined change to Toprol XL 2. Continue Vasotec 3. Continue Norvasc 4. Consider SCD as alternative to SQ Heparin, anemia possible gastrointestinal source of bleed 5. There are no absolute contraindications in proceeding with planned GI evaluation considering that there is no evidence of ACS and/or decompensated CHF and/or malignant ventricular arrhythmia
[2018-12-15 13:38] VITALS: BP 147/74; PULSE 73; TEMP 97.4
--- NOTE | 2018-12-15 14:17 | DS ---
Physical Exam: SUBJECTIVE: Patient seen and examined at bedside- no acute events overnight; patient is prepping for her colonoscopy this AM and had multiple bowel movements through the night; she denies any CP/SOB/N/V OBJECTIVE: Vital Signs Period Temp Pulse Resp BP Sys/Erazo Pulse Ox Last 24 Hr 97.4 F-99.1 F 67-82 17-21 105-150/40-80 95-100 PHYSICAL EXAM GENERAL: The patient is awake, alert, orienetd times three; NAD. EYES: PEERLA: EOMI no scleral icterus . NECK: no JVD; no lymphadenopathy LUNGS: CTA B/L; no rales, rhnchi or wheezing HEART: Regular rate and rhythm, S1, S2 without murmur, rub or gallop. ABDOMEN: soft; NT ND + BS EXTREMITIES: 2+ pulses, warm, well-perfused, no edema. PSYCH: Normal mood, normal affect. SKIN: Warm, dry, normal turgor, no rashes or lesions noted. LABS Laboratory Results - last 24 hr 12/11/18 12/14/18 12/14/18 05:30 16:24 21:51 WBC RBC Hgb Hct MCV MCH MCHC RDW Plt Count MPV Hemoglobin A 98.3 Hemoglobin A2 1.7 L Hemoglobin C 0 Hemoglobin S 0 Variant Hemoglobin 0.0 Hemoglobin Interpret Maternal Rh 0 Hemoglobin Solubility Negative POC Glucometer 245 162 12/15/18 12/15/18 06:14 06:20 WBC 4.1 RBC 3.83 Hgb 9.5 L Hct 29.6 L MCV 77.3 L MCH 24.7 L MCHC 32.0 RDW 20.7 H Plt Count 338 MPV 7.4 L Hemoglobin A Hemoglobin A2 Hemoglobin C Hemoglobin S Variant Hemoglobin Hemoglobin Interpret Maternal Rh Hemoglobin Solubility POC Glucometer 162 HOSPITAL COURSE: Date of Admission:12/10/18 Patient is an 83 yo F with a PMHx of HTN, HLD, s/p stent 5 years ago (on ASA), DM, RA, was sent by her PCP because of anemia. She had a CBC 3 weeks ago which showed a hemoglobin in the 7's and was told today to come to the ER to get a blood transfusion. She denies symptoms including SOB, fatigue, blood in stool but says she looks a little more pale than usual. She was also admitted in August for Anemia. Patient received 2 Units PRBC and was discharged. She refused further workup by GI including colonoscopy. After discharge she did not follow up with GI. Patient said she was sick of seeing doctors. Her last colonoscopy was 05/2016. She is currently taking iron pills at home. Patient was started on Methotrexate for her RA 6 weeks ago. Denies abdominal pain, dark or bright red stools, fever, chills, nausea, vomiting, chest pain, SOB, CLAY, back pain, changes in bowel or bladder habits. on arrival patients Hgb was 7.7- she received 1 unit in the ER; she was seen by Dr Escobar who felt that he wanted her to get a colonscopy while in house. in general [facility] since she endorses 30 lb weight loss over he year- she tumor markers were sent..all of which came back normal; a colonoscopy was done which showed mild diverticulosis and dr escobar recommended to get ct enterography on the outpatient in addition to see heme for follow up and r/o myelodysplasia, , she has follow up with her PCP to get her Hgb rechecked and to get ct ab/plevis for malignancy w/u. in addition, we increased patients norvasc dose from 5 to 10 as her BP was elevated through her stay. Date of Discharge: 12/15/18 Minutes to complete discharge: 35 Discharge Summary Reason For Visit: ANEMIA Current Active Problems Anemia (Acute) Arthritis, rheumatoid (Acute) Symptomatic anemia (Acute) Unintentional weight loss (Acute) Condition: Stable - Instructions Diet, Activity, Other Instructions: You came to the emergency room after being sent in for low hemoglobin level by your primary care physician. You were seen by the gold leaf printer and he performed a colonoscopy and an endoscopy both of which were normal. In addition , we had a flash welder/oncologist come and evaluate you to address your ongoing weight loss. Please STOP your aspirin until followed up with your primary care physician and continue the rest of your home medications: We increased your Norvasc to 10mg daily Please follow up with Dr. Morales within one week, and have your blood levels repeated (CBC level) Please follow up with your key account executive, Dr. Talbot, within one week Please follow up with the gold leaf printer, Dr. Escobar within one week Please follow up with the flash welder, Dr. Moe , within one week to further evaluate the reason for your low hemoglobin level In terms of your ongoing weight loss, we recommend you getting a cat scan of both your chest and your abdomen/pelvis. You will also need a CT enterography to further evaluate. Please tell Dr. Morales. *if you notice any blood in your stools/urine, chest pains, shortness of breath , nausea/vomiting please return to the emergency room immediately Referrals: Arthur Talbot MD [Staff Physician] - 1 Week Bennett Escobar MD [Staff Physician] - 1 Week Alfred Moe MD [Staff Physician] - Tj Morales [Primary Care Provider] - Disposition: HOME - Home Medications Comprehensive Discharge Medication List: Ambulatory Orders Enalapril Maleate [Vasotec] 20 mg PO DAILY 09/05/18 Folic Acid 1 mg PO DAILY 09/05/18 Iron Polysaccharides [Niferex-150 -] 150 mg PO DAILY 09/05/18 Metoprolol Tartrate [Lopressor -] 50 mg PO DAILY 09/05/18 Omeprazole 40 mg PO DAILY 09/05/18 Simvastatin 40 mg PO DAILY 09/05/18 Methotrexate [Mexate -] 10 mg PO Q7D 12/08/18 Amlodipine Besylate [Norvasc -] 10 mg PO DAILY #30 tablet 12/11/18 Problem List - Problems (1) Anemia Code(s): D64.9 - ANEMIA, UNSPECIFIED Qualifiers: Anemia type: iron deficiency Iron deficiency anemia type: unspecified iron deficiency Qualified Code(s): D50.9 - Iron deficiency anemia, unspecified (2) Arthritis, rheumatoid Code(s): M06.9 - RHEUMATOID ARTHRITIS, UNSPECIFIED (3) Unintentional weight loss Code(s): R63.4 - ABNORMAL WEIGHT LOSS (4) DM type 2 (diabetes mellitus, type 2) Code(s): E11.9 - TYPE 2 DIABETES MELLITUS WITHOUT COMPLICATIONS This patient is new to me today: No Emergency Visit: Yes ED Registration Date: 12/10/18 Care time: The patient presented to the Emergency Department on the above date and was hospitalized for further evaluation of their emergent condition. Critical Care patient: No - Discharge Referral Referred to [facility] Med P.C.: No
--- NOTE | 2018-12-15 14:25 | PN ---
Teaching Attending Note Name of Resident: Bella Reyes ATTENDING PHYSICIAN STATEMENT I saw and evaluated the patient. I reviewed the resident's note and discussed the case with the resident. I agree with the resident's findings and plan as documented. SUBJECTIVE:asymptomatic. denies CP, SOB, fever, chills, N/V/C/D, melena or BRBPR OBJECTIVE: Last Vital Signs Temp Pulse Resp BP Pulse Ox 97.4 F L 73 18 147/74 100 12/15/18 13:34 12/15/18 13:34 12/15/18 13:34 12/15/18 13:34 12/15/18 13:11 General NAD CV S1 S2 + Lungs CTA B/L no wheezing/rales/rhonchi Abdomen soft NT/ND Extremities no pedal edema ASSESSMENT AND PLAN: 83 yrs old F H/O Chronic anemia HTN, HLD, s/p stent placement 5 yrs ago (on ASA ), T2DM Diet controlled, RA that was diagnosed few months ago now on Methotrexate Admitted from PMD office for low Hb 7.7 but patient was admitted discharge in 08/2018 for same chief complaint of anemia, GI was consulted but patient refused further GI work-up. On admission patient noted Hb 7.7, received 1U PRBC transfusion and Hg increase to 8.0. Patient had endoscopy performed 09/2016 with showed normal JE junction but had retained food and was instructed to have repeat endoscopy done in 6 months, which she did not follow up on. Previous colonoscopy performed 05/2016 which showed diverticulosis, no colonic polyp. Patient c/o significant unintentional wt loss (30 Lbs in 1 yr) no obvious GI bleed, stool occult blood negative. 1. asymptomatic anemia- s/p 2 units PRBC. has significant weight loss. NPO for colonoscopy today. no more bleeding. will need CT scan as outpatient. tumor markers negative. GI and hematology on board 2. HTN- improved. cont medications 3. DM- diet controlled 4. RA- recently diagnosed and started on MTX. could be leading to pancytopenia however other elias look stable. will monitor 5. Dyslipidemia- statin 6. DVT ppx- hep sq 7. likely d/c later today pending colonoscopy
[2018-12-15] MEDS ORDERED: INSULIN SLIDING SCALE (NOVOLOG) 1 VIAL SQ SCH (18:00)
--- NOTE | 2018-12-15 19:35 | PATH ---
Surgical Pathology Report Patient Name: AGUEDA SUH Med. Rec. #: [id number] /Age/Gender: 1935 (Age: 83) / F Account: [id number] Location: [facility] MED/SURG Taken: 12/11/2018 Received: 12/12/2018 Reported: 12/15/2018 Physicians: Antonina Murray M.D. Specimen(s) Received BODY Clinical History Severe anemia, rule out GI bleed Postoperative diagnosis: nodular body, hiatal hernia Final Diagnosis STOMACH, BODY, BIOPSY: GASTRIC BODY MUCOSA WITH MILD CHRONIC GASTRITIS. IMMUNOHISTOCHEMICAL STAIN FOR H. PYLORI IS NEGATIVE. Electronically Signed Jaki Camacho M.D. Gross Description Received in formalin, labeled "BX body" is a kasper, irregular portion of soft tissue measuring 0.3 cm. in greatest dimension. The specimen is submitted in toto in one cassette. MLSZ/12/12/2018 sanbill/12/12/2018
[2018-12-15] MEDS ORDERED: ATORVASTATIN CA 20 MG TABLET (FP) PO SCH (22:00)
[2018-12-16] MEDS ORDERED: amLODIPine BESYLATE 10 MG TABLET (FP) PO SCH (10:00)
[2018-12-16] MEDS ORDERED: PANTOPRAZOLE 40 MG TABLET (FP) PO SCH (10:00)
[2018-12-16] MEDS ORDERED: ENALAPRIL MALEATE 10 MG TABLET (FP) PO SCH (10:00)
[2018-12-16] MEDS ORDERED: FOLIC ACID 1 MG TABLET (FP) PO SCH (10:00)
== END 2018-12-15 18:09 | disposition home or self-care (01) | DRG 812 ==
LOC: JER 18:45 → INTOOBSV 23:04 → JERBED 23:04 → J2W 12-09 01:33 → OBSVTOIN 12-10 13:28 → J7W 12-14 12:36
PROVIDERS: ADMIT Internal Medicine; ATTEND Internal Medicine
PROC: 30233N1 Transfusion of Nonautologous Red Blood Cells into Peripheral Vein, Percutaneous Approach (ICD-10-PCS; 2018-12-08)
PROC: 0DB98ZX Excision of Duodenum, Via Natural or Artificial Opening Endoscopic, Diagnostic (ICD-10-PCS; principal; 2018-12-11)
PROC: 0DJD8ZZ Inspection of Lower Intestinal Tract, Via Natural or Artificial Opening Endoscopic (ICD-10-PCS; 2018-12-15)
DX: D50.9 Iron deficiency anemia, unspecified (principal); N39.0 Urinary tract infection, site not specified; E46 Unspecified protein-calorie malnutrition; I50.1 Left ventricular failure, unspecified; I25.10 Atherosclerotic heart disease of native coronary artery without angina pectoris; E78.5 Hyperlipidemia, unspecified; I12.9 Hypertensive chronic kidney disease with stage 1 through stage 4 chronic kidney disease, or unspecified chronic kidney disease; N18.9 Chronic kidney disease, unspecified; M06.9 Rheumatoid arthritis, unspecified; K21.9 Gastro-esophageal reflux disease without esophagitis; K76.89 Other specified diseases of liver; E11.9 Type 2 diabetes mellitus without complications; E88.09 Other disorders of plasma-protein metabolism, not elsewhere classified; I10 Essential (primary) hypertension; R63.4 Abnormal weight loss; Z68.26 Body mass index [BMI] 26.0-26.9, adult; K57.90 Diverticulosis of intestine, part unspecified, without perforation or abscess without bleeding; K44.9 Diaphragmatic hernia without obstruction or gangrene; Z95.5 Presence of coronary angioplasty implant and graft
CPT/HCPCS: 36415; 36430; 36511; 71045-TC-FY; 80048; 80053; 81003; 82105; 82272; 82378; 82728; 82784; 82962; 83010; 83021; 83516; 83540; 83550; 83615; 83735; 84100; 84155; 84165; 84443; 85025; 85027; 85044; 85610; 85651; 85660; 86140; 86301; 86304; 86850; 86900; 86901; 86922; 87086; 88305-TC; 93005; 93010; 97161-GP; 99285-25; G0378; J1644; P9038; P9058

== ENCOUNTER 2019-01-23 06:48 | Emergency (ER) | payer OTHER ==
[2019-01-23 07:04] VITALS: BP 176/68; PULSE 84; TEMP 98.3; BMI 26.9
--- NOTE | 2019-01-23 07:05 | PDOC ---
History of Present Illness - General Chief Complaint: Blood Sugar Problem Stated Complaint: LOW BLOOD SUGAR - History of Present Illness Initial Comments: The pt is an 83F w/ a history of DM, RA, anemia, CAD s/p stent, and HTN who presents for evaluation of hypoglycemia. The pt's daughter noted that the pt was lethargic at approximately 0530, the daughter called EMS, her BG at that time was in the 30s, EMS gave oral glucose and a repeat BG was in the 100s. The pt then returned to her baseline mentation per the family. The pt denies any recent illness, fevers/chills, cough, dysuria, diarrhea, hematuria, or blood in her stool. She denies any changes or decrease in PO intake and reports only taking her prescribed dose of Basaglar (20u Qhs) which has not been recently changed. Allergies: Denies SH: Natalia x3 PMD: Dr. Morales 01/23/19 07:28 Past History - Past Medical History Allergies/Adverse Reactions: Allergies Allergy/AdvReac Type Severity Reaction Status Date / Time No Known Allergies Allergy Verified 01/23/19 07:17 Home Medications: Ambulatory Orders Enalapril Maleate [Vasotec] 20 mg PO DAILY 09/05/18 Folic Acid 1 mg PO DAILY 09/05/18 Iron Polysaccharides [Niferex-150 -] 150 mg PO DAILY 09/05/18 Metoprolol Tartrate [Lopressor -] 50 mg PO DAILY 09/05/18 Omeprazole 40 mg PO DAILY 09/05/18 Simvastatin 40 mg PO DAILY 09/05/18 Methotrexate [Mexate -] 10 mg PO Q7D 12/08/18 Amlodipine Besylate [Norvasc -] 10 mg PO DAILY #30 tablet 12/11/18 Anemia: Yes Asthma: No Cancer: No Cardiac Disorders: Yes (CAD, s/p Stent 6 years ago) CVA: No COPD: No CHF: No Dementia: No Diabetes: Yes GI Disorders: Yes (GERD) Disorders: No HTN: Yes Hypercholesterolemia: Yes Liver Disease: Yes (HEPATIC CYST, COLON POLYP) Seizures: No Thyroid Disease: No - Surgical History Cardiac Surgery: Yes (2 STENT(1 TO HEART, 1 TO RT LEG)) - Immunization History Immunization Up to Date: Yes - Suicide/Smoking/Psychosocial Hx Smoking Status: No Smoking History: Never smoked Have you smoked in the past 12 months: No Number of Cigarettes Smoked Daily: 0 Information on smoking cessation initiated: No Hx Alcohol Use: No Drug/Substance Use Hx: No Substance Use Type: None Hx Substance Use Treatment: No Review of Systems - Review of Systems Able to Perform ROS?: Yes Comments:: GENERAL/CONSTITUTIONAL: No fever or chills HEAD, EYES, EARS, NOSE AND THROAT: No change in vision. No ear pain or discharge. No sore throat CARDIOVASCULAR: No chest pain or shortness of breath RESPIRATORY: Denies cough, hemoptysis GASTROINTESTINAL: No nausea, vomiting, diarrhea or constipation GENITOURINARY: No dysuria, frequency, or change in urination MUSCULOSKELETAL: No joint or muscle swelling or pain. No neck or back pain SKIN: No rash NEUROLOGIC: No headache, vertigo, loss of consciousness, or change in strength/ sensation ENDOCRINE: No increased thirst. No abnormal weight change HEMATOLOGIC/LYMPHATIC: No anemia, easy bleeding, or history of blood clots ALLERGIC/IMMUNOLOGIC: No hives or skin allergy 01/23/19 07:05 Is the patient limited Finnish proficient: No *Physical Exam - Vital Signs Last Vital Signs Temp Pulse Resp BP Pulse Ox 98.3 F 84 16 176/68 H 99 01/23/19 06:57 01/23/19 06:57 01/23/19 06:57 01/23/19 06:57 01/23/19 06:57 - Physical Exam Comments: GENERAL: Awake, alert, and oriented to person/place/time, in no acute distress HEAD: No signs of trauma, normocephalic, atraumatic EYES: PERRLA, EOMI, sclera anicteric, conjunctiva clear ENT: Hearing grossly normal, nares patent, oropharynx clear without exudates. No uvular deviation. Moist mucosa LUNGS: No distress, speaks in full sentences, clear to auscultation bilaterally HEART: Regular rate and rhythm, normal S1 and S2, no murmurs appreciated, peripheral pulses normal and equal bilaterally ABDOMEN: Soft, nontender, normoactive bowel sounds. No guarding, no rebound EXTREMITIES: Normal inspection, Normal range of motion, no edema. No clubbing or cyanosis NEUROLOGICAL: Cranial nerves II through XII grossly intact. Normal speech, no focal sensorimotor deficits SKIN: Warm, Dry 01/23/19 07:05 ED Treatment Course - LABORATORY CBC & Chemistry Diagram: 01/23/19 07:42 01/23/19 07:42 Medical Decision Making - Medical Decision Making The pt is an 83F w/ a history of DM (Basaglar), HTN, RA, anemia, CAD s/p stent who presents for evaluation of hypoglycemia this morning ED Course Initial BGM 87 CMP, CBC, BGM Will provide juice and gilmer crackers 01/23/19 07:48 Lytes wnl No leukocytosis No anemia No AZRA LFTs wnl Repeat BGM 160 Pt continues to feel well 01/23/19 09:19 Plan for D/C w/ PCP f/u Discharge instructions and return precautions given Pt in agreement and verbalized understanding Dispo: home *DC/Admit/Observation/Transfer Diagnosis at time of Disposition: Hypoglycemia DM type 2 (diabetes mellitus, type 2) Qualifiers: Diabetes mellitus java portal developer insulin use: unspecified java portal developer insulin use status Diabetes mellitus complication status: with other specified complication Qualified Code(s): E11.69 - Type 2 diabetes mellitus with other specified complication - Discharge Dispostion Condition at time of disposition: Stable Decision to Admit order: No - Referrals Referrals: Tj Morales [Primary Care Provider] - - Patient Instructions Printed Discharge Instructions: DI for Hypoglycemia Additional Instructions: You were seen in the Emergency Department for evaluation of low blood sugar. Your repeat sugar was initially in the 80s and then was 160. Review the handout provided at discharge, continue to take your medications as prescribed. Follow up with your primary care provider within the next week and be sure to discuss your insulin dosing and that you were seen in the Emergency Department for low blood sugar. Return to the Emergency Department if you develop fevers/chills, confusion/lethargy, low blood sugar, chest pain, trouble breathing, nausea/ vomiting, worsening symptoms, or any new/concerning symptoms. - Post Discharge Activity
[2019-01-23 07:49] LABS: BASO % 0.4 % (0-2.0); HEMATOCRIT 29.7 % (32.4-45.2); HEMOGLOBIN 9.7 GM/dL (10.7-15.3); MCHC 32.5 g/dl (32.0-36.0); MEAN CELL VOLUME 80.1 fl (80-96); MEAN PLT VOLUME 7.2 fl (7.5-11.1); MONO % 6.4 % (3.8-10.2); NEUT % 70.2 % (42.8-82.8); RBC 3.71 M/mm3 (3.60-5.2); RDW 22.7 % (11.6-15.6); WHITE BLOOD COUNT 4.6 K/mm3 (4.0-10.0)
[2019-01-23 08:19] LABS: PLATELET COUNT 272 K/MM3 (134-434)
[2019-01-23 08:23] LABS: ALBUMIN 3.2 g/dl (3.4-5.0); BILIRUBIN,TOTAL 0.4 mg/dL (0.2-1); CALCIUM 9.1 mg/dL (8.5-10.1); POTASSIUM 4.1 mmol/L (3.5-5.1); TOT PROT 7.4 g/dl (6.4-8.2)
--- NOTE | 2019-01-23 08:39 | PDOC ---
Attending Attestation - Resident Resident Name: Ghassan Tejada - ED Attending Attestation I have performed the following: I have examined & evaluated the patient, The case was reviewed & discussed with the resident, I agree w/resident's findings & plan, Exceptions are as noted - HPI HPI: 83 yo F history DM, RA, anemia, CAD, HTN presents for hypoglycemia. As per patient's daughter at bedside, she was noted to be lethargic this morning. She called 911 and EMS found her blood sugar to be in the 30s. She received oral glucose prior to arrival. She states she is feeling better now, feeling hungry. Denies recent fever, skin rash, abdominal pain, dysuria. No changes in her insulin regimen- she has been taking the same dose for a long time. - Physicial Exam PE: GENERAL: Awake, alert, and fully oriented, in no acute distress HEAD: No signs of trauma EYES: PERRLA, EOMI, sclera anicteric, conjunctiva clear ENT: Auricles normal inspection, hearing grossly normal, nares patent, oropharynx clear without exudates. Moist mucosa NECK: Normal ROM, supple, no lymphadenopathy, JVD, or masses LUNGS: Breath sounds equal, clear to auscultation bilaterally. No wheezes, and no crackles HEART: Regular rate and rhythm, normal S1 and S2, no murmurs, rubs or gallops ABDOMEN: Soft, nontender, normoactive bowel sounds. No guarding, no rebound. No masses EXTREMITIES: Normal range of motion, no edema. No clubbing or cyanosis. No cords, erythema, or tenderness NEUROLOGICAL: Cranial nerves II through XII grossly intact. Normal speech, normal gait. Motor and sensation intact SKIN: Warm, Dry, normal turgor, no rashes or lesions noted. - Medical Decision Making Pt with episode of hypoglycemia this AM, unknown inciting factor. She takes long -acting insulin, same dose for a long time, however an accidental overdose is also possible. Will check UA to r/o UTI, labs to check renal function. No skin lesions, no diabetic ulcers. Will obtain serial BGMs, and if she continues to have hypoglycemia, will plan for admission.
[2019-01-23 09:58] LABS: PH,URINE 6.5 (5.0-8.0); URINE APPEARANCE CLEAR; URINE BILIRUBIN NEGATIVE (NEGATIVE); URINE COLOR YELLOW; URINE GLUCOSE (UA) NEGATIVE (NEGATIVE); URINE KETONE NEGATIVE (NEGATIVE); URINE LEUK ESTERASE NEGATIVE (NEGATIVE); URINE NITRITE NEGATIVE (NEGATIVE); URINE PROTEIN NEGATIVE (NEGATIVE); URINE UROBILINOGEN 0.2 mg/dL (0.2-1.0)
[2019-01-23 10:17] LABS: ANISOCYTOSIS 0; HELMET CELLS 0; HOWELL-JOLLY BODIES 0; MACROCYTOSIS 0; OVALOCYTE 0; PLATELET ESTIMATE NORMAL; ROULEAU 0; SICKELED CELLS 0; TARGET CELLS 0; TEAR DROP CELLS 0; TOXIC GRANULATION 0
== END 2019-01-23 12:26 | disposition home or self-care (01) ==
LOC: JER 06:48
DX: E11.649 Type 2 diabetes mellitus with hypoglycemia without coma (principal); Z79.4 Long term (current) use of insulin; I25.10 Atherosclerotic heart disease of native coronary artery without angina pectoris; I10 Essential (primary) hypertension; Z95.5 Presence of coronary angioplasty implant and graft; E78.5 Hyperlipidemia, unspecified; D64.9 Anemia, unspecified; K21.9 Gastro-esophageal reflux disease without esophagitis; M06.80 Other specified rheumatoid arthritis, unspecified site
CPT/HCPCS: 36415; 80053; 81003; 82962; 85025; 99282-25

== ENCOUNTER 2021-06-15 15:23 | Emergency (ER) | payer OTHER ==
[2021-06-15 15:34] VITALS: BP 150/62; PULSE 84; TEMP 97.8; BMI 29.2
[2021-06-15] MEDS ORDERED: ACETAMINOPHEN 500 MG TABLET (FP) PO ONE (16:21)
[2021-06-15] MEDS ORDERED: ACETAMINOPHEN 500 MG TABLET (FP) ONE (16:30)
== END 2021-06-15 19:19 | disposition home or self-care (01) ==
LOC: JER 15:23
DX: S42.212A Unspecified displaced fracture of surgical neck of left humerus, initial encounter for closed fracture (principal); W06.XXXA Fall from bed, initial encounter
CPT/HCPCS: 71046-TC-FY; 73030-TC-LT-FY; 73060-TC-LT-FY; 93005; 93010; 99285-25

== ENCOUNTER 2022-07-11 11:55 | Day surgery (SDC) | payer OTHER ==
[~2022-07-11 11:55] MED LIST changes: +IRON SUCROSE INJECTION 200 MG in SODIUM CHLORIDE 100 ML IVPB ONE; -TOBRAMYCIN/DEXAMETHASONE OPHTH. OINTMENT 1 TUBE OD ONE
[2022-07-11 17:08] VITALS: TEMP 98.2
[2022-07-11 17:11] VITALS: BP 125/53; PULSE 54; RESP 18
== END 2022-07-11 13:00 | disposition home or self-care (01) ==
LOC: JONCNONCHE 11:55
PROVIDERS: ATTEND Internal Medicine Hematology & Oncology
PROC: 3E033GC Introduction of Other Therapeutic Substance into Peripheral Vein, Percutaneous Approach (ICD-10-PCS; principal; 2022-07-11)
DX: D50.9 Iron deficiency anemia, unspecified (principal)
CPT/HCPCS: 96365; J1756

== ENCOUNTER 2022-07-18 13:15 | Day surgery (SDC) | payer OTHER ==
[2022-07-18 15:43] VITALS: BP 139/50; PULSE 57; RESP 18; TEMP 98.4
== END 2022-07-18 13:45 | disposition home or self-care (01) ==
LOC: JONCNONCHE 13:15
PROVIDERS: ATTEND Internal Medicine Hematology & Oncology
PROC: 3E033GC Introduction of Other Therapeutic Substance into Peripheral Vein, Percutaneous Approach (ICD-10-PCS; principal; 2022-07-18)
DX: D50.9 Iron deficiency anemia, unspecified (principal)
CPT/HCPCS: 96365; J1756

== ENCOUNTER 2022-07-24 12:25 | Day surgery (SDC) | payer OTHER ==
[2022-07-24 16:09] VITALS: TEMP 98.6
[2022-07-24 16:15] VITALS: BP 176/51; PULSE 52; RESP 18
== END 2022-07-24 14:00 | disposition home or self-care (01) ==
LOC: JONCNONCHE 12:25 → J7W 12:26 → JONCNONCHE 14:00
PROVIDERS: ATTEND Internal Medicine Hematology & Oncology
PROC: 3E033GC Introduction of Other Therapeutic Substance into Peripheral Vein, Percutaneous Approach (ICD-10-PCS; principal; 2022-07-24)
DX: D50.9 Iron deficiency anemia, unspecified (principal)
CPT/HCPCS: 96365; J1756

== ENCOUNTER 2022-08-01 12:50 | Day surgery (SDC) | payer OTHER ==
[2022-08-01 18:34] VITALS: BP 168/65; PULSE 54; RESP 18; TEMP 97.3
== END 2022-08-01 14:00 | disposition home or self-care (01) ==
LOC: JONCNONCHE 12:50
PROVIDERS: ATTEND Internal Medicine Hematology & Oncology
PROC: 3E033GC Introduction of Other Therapeutic Substance into Peripheral Vein, Percutaneous Approach (ICD-10-PCS; principal; 2022-08-01)
DX: D50.9 Iron deficiency anemia, unspecified (principal)
CPT/HCPCS: 96365; J1756

== ENCOUNTER 2022-10-11 10:18 | Observation (INO) | payer OTHER ==
[2022-10-11] MEDS ORDERED: SODIUM CHLORIDE 500 ML IV STA (12:07)
[2022-10-11 13:20] LABS: VENOUS BASE EXCESS -1.6 mmol/L (-2-2); VENOUS O2 SATURATION 52.5 % (70-80); VENOUS PCO2 43.7 mmHg (38-52); VENOUS PH 7.359 (7.310-7.410)
[2022-10-11 13:26] LABS: HEMATOCRIT 41.2 % (32.4-45.2); HEMOGLOBIN 13.5 GM/dL (10.7-15.3); MCH 28.6 pg (25.7-33.7); MCHC 32.7 g/dl (32.0-36.0); MEAN CELL VOLUME 87.5 fl (80-96); MEAN PLT VOLUME 9.2 fl (7.5-11.1); PLATELET COUNT 217 10^3/uL (134-434); RBC 4.71 M/mm3 (3.60-5.2)
[2022-10-11 13:27] LABS: WHITE BLOOD COUNT 5.6 K/mm3 (4.0-10.0)
[2022-10-11 13:39] LABS: ALBUMIN 3.7 g/dl (3.4-5.0); CALCIUM 9.9 mg/dL (8.5-10.1); MAGNESIUM 1.7 mg/dL (1.8-2.4)
[2022-10-11 13:42] LABS: PHOSPHOROUS 2.9 mg/dL (2.5-4.9)
[2022-10-11 13:43] LABS: CREATININE 1.3 mg/dL (0.55-1.3)
[2022-10-11 13:44] LABS: BILIRUBIN,TOTAL 0.4 mg/dL (0.2-1); TOT PROT 7.2 g/dl (6.4-8.2)
[2022-10-11] MEDS ORDERED: DEXTROSE 50%-WATER - 25 GM/50 ML VIAL IVPUSH ONE ×2 (13:58)
[2022-10-11] MEDS ORDERED: DEXTROSE 50%-WATER 25 GM/50 ML DISP.SYRIN ONE (14:04)
[2022-10-11 14:37] LABS: ANISOCYTOSIS 1+; MACROCYTOSIS 0
[2022-10-11] MEDS ORDERED: MAGNESIUM SULF 50% (8.12 MEQ/2 ML-1 GM VIAL) IVPB ONE (15:20)
[2022-10-11] MEDS ORDERED: MAGNESIUM 1GM/D5W - 1 GM/100 ML IVPB IVPB ONE (15:41)
[2022-10-11] MEDS ORDERED: DEXTROSE 5%-NORMAL SALINE 1,000 ML IV SCH (19:00)
[2022-10-11] MEDS: INSULIN SLIDING SCALE (NOVOLOG) 1 VIAL SQ SCH (22:45)
[2022-10-11 22:54] VITALS: BMI 25.5
[2022-10-12] MEDS: INSULIN SLIDING SCALE (NOVOLOG) 1 VIAL SQ SCH ×4 (06:36→21:57)
[2022-10-12 10:17] LABS: BASO % 0.7 % (0-2.0); HEMATOCRIT 36.8 % (32.4-45.2); HEMOGLOBIN 12.1 GM/dL (10.7-15.3); LYMPH % 36.1 % (8-40); MCH 29.6 pg (25.7-33.7); MCHC 32.9 g/dl (32.0-36.0); MEAN CELL VOLUME 89.9 fl (80-96); MEAN PLT VOLUME 8.8 fl (7.5-11.1); MONO % 8.8 % (3.8-10.2); NEUT % 54.4 % (42.8-82.8); PLATELET COUNT 186 10^3/uL (134-434); WHITE BLOOD COUNT 3.2 K/mm3 (4.0-10.0)
[2022-10-12 10:39] LABS: CHOLESTEROL 177 mg/dL (50-200); TRIGLYCERIDES 64 mg/dL (0-150)
[2022-10-12 10:40] LABS: LDL CHOLESTEROL (ONLY SJRH) 99 mg/dL (5-100)
[2022-10-12 10:44] LABS: HDL CHOLESTEROL 66 mg/dL (40-60)
[2022-10-12] MEDS: ENOXAPARIN NA (PORCINE) 40 MG/0.4 ML DISP.SYRIN SQ SCH (10:45)
[2022-10-12 11:17] LABS: ALBUMIN 3.2 g/dl (3.4-5.0); BLOOD UREA NITROGEN 17.8 mg/dL (7-18)
[2022-10-12 11:19] LABS: CREATININE 1.2 mg/dL (0.55-1.3); PHOSPHOROUS 2.3 mg/dL (2.5-4.9)
[2022-10-12 11:21] LABS: TOT PROT 6.2 g/dl (6.4-8.2)
[2022-10-12] MEDS ORDERED: LOPERAMIDE HCL 2 MG CAPSULE PO PRN (16:31)
[2022-10-12] MEDS ORDERED: QUEtiapine FUMARATE 25 MG TABLET PO ONE (21:35)
[2022-10-13] MEDS ORDERED: HALOPERIDOL LACTATE 5 MG/ML IM ONE (02:14)
[2022-10-13] MEDS: INSULIN SLIDING SCALE (NOVOLOG) 1 VIAL SQ SCH ×2 (06:32→11:56)
[2022-10-13] MEDS ORDERED: ENALAPRIL MALEATE 10 MG TABLET PO SCH (10:00)
[2022-10-13] MEDS ORDERED: amLODIPine BESYLATE 5 MG TABLET (FP) PO SCH (10:00)
[2022-10-13] MEDS: ENOXAPARIN NA (PORCINE) 40 MG/0.4 ML DISP.SYRIN SQ SCH ×2 (10:59→11:05)
[2022-10-13 13:54] VITALS: BP 126/59; PULSE 85; RESP 20; TEMP 97.8
== END 2022-10-13 15:28 | disposition home or self-care (01) ==
LOC: JER 10:18 → JERBED 17:08 → J7W 21:10
PROVIDERS: ADMIT Internal Medicine; ATTEND Internal Medicine
PROC: 3E033GC Introduction of Other Therapeutic Substance into Peripheral Vein, Percutaneous Approach (ICD-10-PCS; principal; 2022-10-11)
PROC: 3E0337Z Introduction of Electrolytic and Water Balance Substance into Peripheral Vein, Percutaneous Approach (ICD-10-PCS; 2022-10-11)
DX: I25.10 Atherosclerotic heart disease of native coronary artery without angina pectoris (principal); Z95.5 Presence of coronary angioplasty implant and graft; E11.649 Type 2 diabetes mellitus with hypoglycemia without coma; E78.5 Hyperlipidemia, unspecified; I11.9 Hypertensive heart disease without heart failure
CPT/HCPCS: 0241U-QW; 36415; 71045-TC-FY; 80053; 80061; 82803; 82962; 83036; 83735; 84100; 84443; 84484; 85025; 93005; 93010; 96361; 96365; 96375; 96376; 99285-25; G0378

== ENCOUNTER 2022-11-11 14:20 | Emergency (ER) | payer OTHER ==
[2022-11-11 14:26] VITALS: TEMP 97.7; BMI 26.2
[2022-11-11 15:19] LABS: BASO % 0.7 % (0-2.0); HEMOGLOBIN 12.5 GM/dL (10.7-15.3); MCH 29.4 pg (25.7-33.7); MCHC 33.7 g/dl (32.0-36.0); MEAN CELL VOLUME 87.2 fl (80-96); MONO % 8.2 % (3.8-10.2); NEUT % 63.1 % (42.8-82.8); PLATELET COUNT 163 10^3/uL (134-434); RBC 4.24 M/mm3 (3.60-5.2); RDW 15.3 % (11.6-15.6); WHITE BLOOD COUNT 3.4 K/mm3 (4.0-10.0)
[2022-11-11 15:40] LABS: CALCIUM 9.7 mg/dL (8.5-10.1)
[2022-11-11 15:41] LABS: ALBUMIN 3.7 g/dl (3.4-5.0); BLOOD UREA NITROGEN 25.5 mg/dL (7-18); MAGNESIUM 2.1 mg/dL (1.8-2.4)
[2022-11-11 15:44] LABS: CREATININE 1.5 mg/dL (0.55-1.3); PHOSPHOROUS 3.6 mg/dL (2.5-4.9)
[2022-11-11 15:45] LABS: BILIRUBIN,TOTAL 0.6 mg/dL (0.2-1); TOT PROT 6.8 g/dl (6.4-8.2)
[2022-11-11 16:45] VITALS: BP 189/67; PULSE 66; RESP 20
[2022-11-11] MEDS ORDERED: METOPROLOL TARTRATE 50 MG TABLET (FP) PO ONE (17:59)
[2022-11-11] MEDS ORDERED: METOPROLOL TARTRATE 50 MG TABLET (FP) ONE (18:07)
[2022-11-11 18:21] LABS: EPI CELLS 14 /uL (0-25.1); HYALINE CASTS 0 /uL (0-3.1); URINE APPEARANCE CLEAR; URINE BACTERIA 148 /uL (0-1359); URINE BILIRUBIN NEGATIVE (NEGATIVE); URINE COLOR YELLOW; URINE GLUCOSE (UA) 3+ (NEGATIVE); URINE KETONE NEGATIVE (NEGATIVE); URINE LEUK ESTERASE 1+ (NEGATIVE); URINE NITRITE NEGATIVE (NEGATIVE); URINE PROTEIN NEGATIVE (NEGATIVE); URINE RBC 14 /uL (0-23.9); URINE UROBILINOGEN 0.2 mg/dL (0.2-1.0); URINE WBC 36 /uL (0-25.8)
[2022-11-11] MEDS ORDERED: CEFTRIAXONE 1,000 MG in DEXTROSE 5%-WATER - 50 ML IVPB ONE (18:28)
[2022-11-11] MEDS ORDERED: CEFTRIAXONE 1 GM/50 ML BAG ONE (18:44)
== END 2022-11-11 19:20 | disposition home or self-care (01) ==
LOC: JER 14:20
PROC: 3E033GC Introduction of Other Therapeutic Substance into Peripheral Vein, Percutaneous Approach (ICD-10-PCS; principal; 2022-11-11)
DX: R42 Dizziness and giddiness (principal)
CPT/HCPCS: 0241U-QW; 36415; 70450-TC; 71045-TC-FY; 80053; 81003; 83735; 84100; 84484; 85025; 87086; 93005; 93010; 99285-25

== ENCOUNTER 2023-07-12 10:14 | Inpatient (IN) | payer OTHER ==
[2023-07-12 12:17] LABS: BASO % 0.4 % (0-2.0); EOS % 0.2 % (0-4.5); HEMATOCRIT 35.7 % (32.4-45.2); HEMOGLOBIN 11.4 GM/dL (10.7-15.3); LYMPH % 19.2 % (8-40); MCH 28.2 pg (25.7-33.7); MEAN CELL VOLUME 88.2 fl (80-96); MEAN PLT VOLUME 8.1 fl (7.5-11.1); MONO % 6.8 % (3.8-10.2); NEUT % 73.4 % (42.8-82.8); PLATELET COUNT 221 10^3/uL (134-434); RBC 4.05 M/mm3 (3.60-5.2); RDW 16.8 % (11.6-15.6); WHITE BLOOD COUNT 4.5 K/mm3 (4.0-10.0)
[2023-07-12 12:40] LABS: SODIUM 126 mmol/L (136-145)
[2023-07-12 12:43] LABS: BLOOD UREA NITROGEN 26.6 mg/dL (7-18); CO2 28 mmol/L (21-32); GLUCOSE,RANDOM 157 mg/dL (74-106)
[2023-07-12 12:46] LABS: CREATININE 1.2 mg/dL (0.55-1.3)
[2023-07-12 12:48] LABS: BILIRUBIN,TOTAL 0.8 mg/dL (0.2-1); TOT PROT 7.7 g/dl (6.4-8.2)
[2023-07-12 12:49] LABS: ALK PHOS 95 U/L (45-117)
[2023-07-12 12:50] LABS: ANION GAP -5 mmol/L (4-13); CHLORIDE 104 mmol/L (98-107); POTASSIUM > 10.0 mmol/L (3.5-5.1); SGOT/AST 87 U/L (15-37); SGPT/ALT 25 U/L (13-61)
[2023-07-12 14:09] LABS: CALCIUM 9.6 mg/dL (8.5-10.1)
[2023-07-12 14:10] LABS: BLOOD UREA NITROGEN 25.7 mg/dL (7-18)
[2023-07-12 14:16] LABS: CREATININE 1.2 mg/dL (0.55-1.3)
[2023-07-12 17:14] LABS: PH,URINE 5.5 (5.0-8.0); URINE APPEARANCE CLEAR; URINE BILIRUBIN NEGATIVE (NEGATIVE); URINE COLOR YELLOW; URINE GLUCOSE (UA) 3+ (NEGATIVE); URINE KETONE NEGATIVE (NEGATIVE); URINE LEUK ESTERASE NEGATIVE (NEGATIVE); URINE NITRITE NEGATIVE (NEGATIVE); URINE PROTEIN TRACE (NEGATIVE)
[2023-07-12] MEDS ORDERED: BENZOCAINE/MENTH/CETYLPYRD CL 1 EACH LOZENGE MM PRN (23:19)
[2023-07-13] MEDS ORDERED: PANTOPRAZOLE 40 MG TABLET PO ONE (05:15)
[2023-07-13] MEDS: PANTOPRAZOLE 40 MG TABLET PO SCH (05:40)
[2023-07-13 08:54] LABS: HEMATOCRIT 33.3 % (32.4-45.2); HEMOGLOBIN 11.1 GM/dL (10.7-15.3); MCH 28.6 pg (25.7-33.7); MCHC 33.4 g/dl (32.0-36.0); MEAN CELL VOLUME 85.7 fl (80-96); MEAN PLT VOLUME 8.4 fl (7.5-11.1); PLATELET COUNT 205 10^3/uL (134-434); RBC 3.88 M/mm3 (3.60-5.2); RDW 14.6 % (11.6-15.6); WHITE BLOOD COUNT 5.4 K/mm3 (4.0-10.0)
[2023-07-13 09:14] LABS: BLOOD UREA NITROGEN 19.4 mg/dL (7-18)
[2023-07-13 09:15] LABS: CALCIUM 8.8 mg/dL (8.5-10.1)
[2023-07-13 09:17] LABS: PHOSPHOROUS 2.9 mg/dL (2.5-4.9)
[2023-07-13] MEDS ORDERED: FUROSEMIDE 40 MG/4 ML INJECTABLE VIAL IVPUSH SCH (10:00)
[2023-07-13] MEDS ORDERED: FUROSEMIDE 40 MG/4 ML INJECTABLE VIAL ONE ×2 (11:09→12:11)
[2023-07-13] MEDS: ENALAPRIL MALEATE 10 MG TABLET PO SCH (11:25)
[2023-07-13] MEDS: ENOXAPARIN NA (PORCINE) 30 MG/0.3 ML DISP.SYRIN SQ SCH (11:26)
[2023-07-13] MEDS: INSULIN ASPART SLIDING SCALE (NOVOLOG) 1 VIAL SQ SCH ×3 (12:06→22:06)
[2023-07-13 16:11] VITALS: BMI 21.6
[2023-07-13] MEDS ORDERED: FLU VACCINE (FLULAVAL) PF 60 MCG/0.5 ML SYRINGE 2023-2024 IM ONE (17:00)
[2023-07-13] MEDS: ATORVASTATIN CA 20 MG TABLET (FP) PO SCH (22:05)
[2023-07-13] MEDS: amLODIPine BESYLATE 5 MG TABLET (FP) PO SCH (22:05)
[2023-07-14] MEDS: INSULIN ASPART SLIDING SCALE (NOVOLOG) 1 VIAL SQ SCH ×4 (06:39→23:14)
[2023-07-14] MEDS: PANTOPRAZOLE 40 MG TABLET PO SCH (07:40)
[2023-07-14 09:15] LABS: BASO % 0.2 % (0-2.0); HEMATOCRIT 34.8 % (32.4-45.2); HEMOGLOBIN 11.5 GM/dL (10.7-15.3); LYMPH % 10.9 % (8-40); MCH 28.5 pg (25.7-33.7); MCHC 33.1 g/dl (32.0-36.0); MEAN CELL VOLUME 86.1 fl (80-96); MEAN PLT VOLUME 8.4 fl (7.5-11.1); MONO % 5.2 % (3.8-10.2); NEUT % 83.7 % (42.8-82.8); PLATELET COUNT 205 10^3/uL (134-434); RBC 4.05 M/mm3 (3.60-5.2); RDW 14.4 % (11.6-15.6); WHITE BLOOD COUNT 7.4 K/mm3 (4.0-10.0)
[2023-07-14 09:21] LABS: POTASSIUM 3.6 mmol/L (3.5-5.1)
[2023-07-14 09:24] LABS: CALCIUM 9.5 mg/dL (8.5-10.1)
[2023-07-14 09:25] LABS: BLOOD UREA NITROGEN 21.1 mg/dL (7-18); MAGNESIUM 2.1 mg/dL (1.8-2.4)
[2023-07-14 09:28] LABS: CREATININE 1.1 mg/dL (0.55-1.3)
[2023-07-14 09:29] LABS: BILIRUBIN,TOTAL 0.9 mg/dL (0.2-1); TOT PROT 6.3 g/dl (6.4-8.2)
[2023-07-14] MEDS: ENALAPRIL MALEATE 10 MG TABLET PO SCH (11:21)
[2023-07-14] MEDS: FUROSEMIDE 20 MG TABLET (FP) PO SCH (11:21)
[2023-07-14] MEDS: ENOXAPARIN NA (PORCINE) 30 MG/0.3 ML DISP.SYRIN SQ SCH (11:22)
[2023-07-14] MEDS ORDERED: IRON POLYSACCHARIDES 150 MG CAPSULE PO SCH (17:00)
[2023-07-14] MEDS: amLODIPine BESYLATE 5 MG TABLET (FP) PO SCH (23:13)
[2023-07-14] MEDS: ATORVASTATIN CA 20 MG TABLET (FP) PO SCH (23:13)
[2023-07-15] MEDS: INSULIN ASPART SLIDING SCALE (NOVOLOG) 1 VIAL SQ SCH ×4 (06:50→22:32)
[2023-07-15] MEDS: PANTOPRAZOLE 40 MG TABLET PO SCH (06:50)
[2023-07-15 07:24] LABS: HEMATOCRIT 33.5 % (32.4-45.2); HEMOGLOBIN 11.2 GM/dL (10.7-15.3); LYMPH % 8.5 % (8-40); MCH 28.4 pg (25.7-33.7); MCHC 33.3 g/dl (32.0-36.0); MEAN CELL VOLUME 85.1 fl (80-96); MEAN PLT VOLUME 8.6 fl (7.5-11.1); MONO % 4.6 % (3.8-10.2); NEUT % 86.9 % (42.8-82.8); PLATELET COUNT 199 10^3/uL (134-434); RBC 3.93 M/mm3 (3.60-5.2); RDW 14.8 % (11.6-15.6); WHITE BLOOD COUNT 10.6 K/mm3 (4.0-10.0)
[2023-07-15 08:00] LABS: POTASSIUM 3.6 mmol/L (3.5-5.1)
[2023-07-15 08:03] LABS: CALCIUM 9.9 mg/dL (8.5-10.1)
[2023-07-15 08:04] LABS: ALBUMIN 2.8 g/dl (3.4-5.0); BLOOD UREA NITROGEN 25.6 mg/dL (7-18); MAGNESIUM 2.1 mg/dL (1.8-2.4)
[2023-07-15 08:07] LABS: CREATININE 1.3 mg/dL (0.55-1.3); PHOSPHOROUS 2.9 mg/dL (2.5-4.9)
[2023-07-15] MEDS: FUROSEMIDE 20 MG TABLET (FP) PO SCH (09:33)
[2023-07-15] MEDS: ENALAPRIL MALEATE 10 MG TABLET PO SCH (09:33)
[2023-07-15] MEDS: amLODIPine BESYLATE 5 MG TABLET (FP) PO SCH (22:38)
[2023-07-15] MEDS: ATORVASTATIN CA 20 MG TABLET (FP) PO SCH (22:38)
[2023-07-16] MEDS: INSULIN ASPART SLIDING SCALE (NOVOLOG) 1 VIAL SQ SCH ×4 (06:57→21:44)
[2023-07-16] MEDS: PANTOPRAZOLE 40 MG TABLET PO SCH (07:02)
[2023-07-16 07:17] LABS: HEMOGLOBIN 10.9 GM/dL (10.7-15.3); MCH 28.3 pg (25.7-33.7); MCHC 33.1 g/dl (32.0-36.0); MEAN CELL VOLUME 85.7 fl (80-96); MEAN PLT VOLUME 8.8 fl (7.5-11.1); PLATELET COUNT 182 10^3/uL (134-434); RBC 3.85 M/mm3 (3.60-5.2); RDW 14.7 % (11.6-15.6); WHITE BLOOD COUNT 10.8 K/mm3 (4.0-10.0)
[2023-07-16 07:35] LABS: POTASSIUM 3.5 mmol/L (3.5-5.1)
[2023-07-16 07:37] LABS: BLOOD UREA NITROGEN 31.4 mg/dL (7-18); CALCIUM 8.9 mg/dL (8.5-10.1); MAGNESIUM 1.9 mg/dL (1.8-2.4)
[2023-07-16 07:40] LABS: CREATININE 1.7 mg/dL (0.55-1.3); PHOSPHOROUS 3.5 mg/dL (2.5-4.9)
[2023-07-16 07:41] LABS: ALBUMIN 2.5 g/dl (3.4-5.0)
[2023-07-16 07:42] LABS: TOT PROT 5.6 g/dl (6.4-8.2)
[2023-07-16] MEDS: ENALAPRIL MALEATE 10 MG TABLET PO SCH (09:30)
[2023-07-16] MEDS: FUROSEMIDE 20 MG TABLET (FP) PO SCH (09:30)
[2023-07-16] MEDS ORDERED: ACETAMINOPHEN 1000 MG/100 ML BAG IVPB ONE (20:13)
[2023-07-16] MEDS ORDERED: MELATONIN 5 MG TABLETS PO ONE (20:13)
[2023-07-16] MEDS ORDERED: KETOROLAC TROMETHAMINE 15 MG/ML VIAL IM ONE (20:16)
[2023-07-16] MEDS: ATORVASTATIN CA 20 MG TABLET (FP) PO SCH (21:41)
[2023-07-17] MEDS: amLODIPine BESYLATE 5 MG TABLET (FP) PO SCH ×2 (02:37→22:27)
[2023-07-17] MEDS: PANTOPRAZOLE 40 MG TABLET PO SCH (06:11)
[2023-07-17] MEDS: INSULIN ASPART SLIDING SCALE (NOVOLOG) 1 VIAL SQ SCH ×4 (06:11→22:28)
[2023-07-17] MEDS ORDERED: BENZOCAINE/MENTH/CETYLPYRD CL 1 EACH LOZENGE MM PRN (07:38)
[2023-07-17 08:30] LABS: HEMATOCRIT 31.4 % (32.4-45.2); HEMOGLOBIN 10.4 GM/dL (10.7-15.3); MCH 28.3 pg (25.7-33.7); MCHC 32.9 g/dl (32.0-36.0); MEAN PLT VOLUME 8.6 fl (7.5-11.1); PLATELET COUNT 197 10^3/uL (134-434); RBC 3.66 M/mm3 (3.60-5.2); RDW 15.2 % (11.6-15.6); WHITE BLOOD COUNT 8.1 K/mm3 (4.0-10.0)
[2023-07-17 08:49] LABS: POTASSIUM 3.7 mmol/L (3.5-5.1)
[2023-07-17 08:51] LABS: CALCIUM 9.3 mg/dL (8.5-10.1)
[2023-07-17 08:52] LABS: ALBUMIN 2.2 g/dl (3.4-5.0); BLOOD UREA NITROGEN 47.6 mg/dL (7-18)
[2023-07-17 08:55] LABS: CREATININE 2.3 mg/dL (0.55-1.3)
[2023-07-17 08:57] LABS: TOT PROT 5.5 g/dl (6.4-8.2)
[2023-07-17] MEDS ORDERED: ENALAPRIL MALEATE 10 MG TABLET PO SCH (10:00)
[2023-07-17] MEDS ORDERED: LACTATED RINGERS SOLUTION 1,000 ML/1,000 ML INFUS.BAG IV SCH (12:00)
[2023-07-17] MEDS: ATORVASTATIN CA 20 MG TABLET (FP) PO SCH (22:27)
[2023-07-18] MEDS: INSULIN ASPART SLIDING SCALE (NOVOLOG) 1 VIAL SQ SCH ×3 (06:19→22:37)
[2023-07-18] MEDS: PANTOPRAZOLE 40 MG TABLET PO SCH (06:22)
[2023-07-18 08:09] LABS: HEMATOCRIT 31.6 % (32.4-45.2); HEMOGLOBIN 10.5 GM/dL (10.7-15.3); MCH 27.9 pg (25.7-33.7); MCHC 33.1 g/dl (32.0-36.0); MEAN CELL VOLUME 84.4 fl (80-96); MEAN PLT VOLUME 8.7 fl (7.5-11.1); PLATELET COUNT 212 10^3/uL (134-434); RBC 3.74 M/mm3 (3.60-5.2); RDW 15.2 % (11.6-15.6)
[2023-07-18 08:33] LABS: CALCIUM 8.5 mg/dL (8.5-10.1)
[2023-07-18 08:34] LABS: ALBUMIN 2.1 g/dl (3.4-5.0); BLOOD UREA NITROGEN 45.8 mg/dL (7-18); MAGNESIUM 1.9 mg/dL (1.8-2.4)
[2023-07-18 08:37] LABS: CREATININE 1.6 mg/dL (0.55-1.3); PHOSPHOROUS 2.9 mg/dL (2.5-4.9)
[2023-07-18 08:43] LABS: TOT PROT 5.2 g/dl (6.4-8.2)
[2023-07-18 08:55] LABS: EPI CELLS 0 /uL (0-25.1); HYALINE CASTS 0 /uL (0-3.1); URINE APPEARANCE TURBID; URINE BACTERIA 8015 /uL (0-1359); URINE BILIRUBIN NEGATIVE (NEGATIVE); URINE COLOR YELLOW; URINE GLUCOSE (UA) 1+ (NEGATIVE); URINE KETONE TRACE (NEGATIVE); URINE LEUK ESTERASE 3+ (NEGATIVE); URINE NITRITE NEGATIVE (NEGATIVE); URINE PROTEIN 2+ (NEGATIVE); URINE RBC 6 /uL (0-23.9); URINE WBC 111 /uL (0-25.8)
[2023-07-18] MEDS ORDERED: PIPERACILLIN/TAZOB 4.5 GM 4.5 GM in DEXTROSE 5%-WATER 100 ML IVPB SCH (14:45)
[2023-07-18] MEDS ORDERED: INSULIN (NOVOLOG) ASPART 100 UNITS/ML 10ML VIAL ONE ×2 (17:13→22:34)
[2023-07-18] MEDS: PIPERACILLIN/TAZOB 4.5 GM 4.5 GM in DEXTROSE 5%-WATER 100 ML IVPB SCH ×2 (17:29→22:39)
[2023-07-18] MEDS: amLODIPine BESYLATE 5 MG TABLET (FP) PO SCH (22:27)
[2023-07-18] MEDS: ATORVASTATIN CA 20 MG TABLET (FP) PO SCH (22:27)
[2023-07-19] MEDS: INSULIN ASPART SLIDING SCALE (NOVOLOG) 1 VIAL SQ SCH ×4 (06:21→23:22)
[2023-07-19] MEDS: PANTOPRAZOLE 40 MG TABLET PO SCH (06:21)
[2023-07-19] MEDS: PIPERACILLIN/TAZOB 2.25 GM 2.25 GM in DEXTROSE 5%-WATER - 50 ML IVPB SCH ×2 (10:32→17:51)
[2023-07-19 13:26] LABS: EPI CELLS >36 /uL (0-25.1); HYALINE CASTS 3 /uL (0-3.1); PH,URINE 5.5 (5.0-8.0); URINE APPEARANCE TURBID; URINE BACTERIA 7117 /uL (0-1359); URINE BILIRUBIN 1+ (NEGATIVE); URINE COLOR DK YELLOW; URINE GLUCOSE (UA) TRACE (NEGATIVE); URINE KETONE NEGATIVE (NEGATIVE); URINE LEUK ESTERASE 3+ (NEGATIVE); URINE NITRITE NEGATIVE (NEGATIVE); URINE PROTEIN 2+ (NEGATIVE); URINE WBC 13307 /uL (0-25.8)
[2023-07-19 14:23] LABS: URINE RBC 3744 /uL (0-23.9); YEAST NONE SEEN (NEGATIVE)
[2023-07-19 14:24] LABS: URINE CRYSTALS PRESENT /hpf
[2023-07-19] MEDS: amLODIPine BESYLATE 5 MG TABLET (FP) PO SCH (23:17)
[2023-07-19] MEDS: ATORVASTATIN CA 20 MG TABLET (FP) PO SCH (23:17)
[2023-07-19] MEDS: METOPROLOL TARTRATE 25 MG TABLET (FP) PO SCH (23:17)
[2023-07-20] MEDS: PIPERACILLIN/TAZOB 2.25 GM 2.25 GM in DEXTROSE 5%-WATER - 50 ML IVPB SCH ×2 (01:33→09:46)
[2023-07-20] MEDS: PANTOPRAZOLE 40 MG TABLET PO SCH (06:31)
[2023-07-20] MEDS: INSULIN ASPART SLIDING SCALE (NOVOLOG) 1 VIAL SQ SCH ×4 (06:52→22:09)
[2023-07-20 08:22] LABS: POTASSIUM 4.7 mmol/L (3.5-5.1)
[2023-07-20 08:25] LABS: ALBUMIN 2.2 g/dl (3.4-5.0); CALCIUM 9.1 mg/dL (8.5-10.1); MAGNESIUM 2.1 mg/dL (1.8-2.4)
[2023-07-20 08:26] LABS: BLOOD UREA NITROGEN 31.8 mg/dL (7-18)
[2023-07-20 08:28] LABS: CREATININE 1.2 mg/dL (0.55-1.3)
[2023-07-20 08:29] LABS: PHOSPHOROUS 2.5 mg/dL (2.5-4.9)
[2023-07-20 08:30] LABS: BILIRUBIN,TOTAL 0.6 mg/dL (0.2-1); TOT PROT 5.5 g/dl (6.4-8.2)
[2023-07-20] MEDS: METOPROLOL TARTRATE 25 MG TABLET (FP) PO SCH ×2 (11:47→22:01)
[2023-07-20] MEDS: EMPAGLIFLOZIN (JARDIANCE) 10 MG TABLET PO SCH (11:47)
[2023-07-20] MEDS: CEFTRIAXONE 1 GM in DEXTROSE 5%-WATER - 50 ML IVPB SCH (17:33)
[2023-07-20] MEDS: ATORVASTATIN CA 20 MG TABLET (FP) PO SCH (22:01)
[2023-07-20] MEDS: amLODIPine BESYLATE 5 MG TABLET (FP) PO SCH (22:01)
[2023-07-21] MEDS: PANTOPRAZOLE 40 MG TABLET PO SCH (06:51)
[2023-07-21] MEDS: INSULIN ASPART SLIDING SCALE (NOVOLOG) 1 VIAL SQ SCH ×4 (07:05→21:36)
[2023-07-21 08:20] LABS: BASO % 0.6 % (0-2.0); HEMOGLOBIN 10.4 GM/dL (10.7-15.3); LYMPH % 36.5 % (8-40); MCH 28.1 pg (25.7-33.7); MCHC 32.6 g/dl (32.0-36.0); MEAN CELL VOLUME 86.1 fl (80-96); MEAN PLT VOLUME 7.9 fl (7.5-11.1); MONO % 13.8 % (3.8-10.2); NEUT % 49.1 % (42.8-82.8); PLATELET COUNT 269 10^3/uL (134-434); RBC 3.71 M/mm3 (3.60-5.2); RDW 14.8 % (11.6-15.6); WHITE BLOOD COUNT 3.6 K/mm3 (4.0-10.0)
[2023-07-21 08:24] LABS: POTASSIUM 4.4 mmol/L (3.5-5.1)
[2023-07-21 08:26] LABS: CALCIUM 9.2 mg/dL (8.5-10.1)
[2023-07-21 08:27] LABS: ALBUMIN 2.3 g/dl (3.4-5.0); BLOOD UREA NITROGEN 23.9 mg/dL (7-18)
[2023-07-21 08:30] LABS: CREATININE 1.1 mg/dL (0.55-1.3)
[2023-07-21 08:32] LABS: BILIRUBIN,TOTAL 0.7 mg/dL (0.2-1); TOT PROT 5.8 g/dl (6.4-8.2)
[2023-07-21] MEDS: CEFTRIAXONE 1 GM in DEXTROSE 5%-WATER - 50 ML IVPB SCH (09:04)
[2023-07-21] MEDS: METOPROLOL TARTRATE 25 MG TABLET (FP) PO SCH ×2 (11:27→21:36)
[2023-07-21] MEDS: EMPAGLIFLOZIN (JARDIANCE) 10 MG TABLET PO SCH (11:28)
[2023-07-21] MEDS: ATORVASTATIN CA 20 MG TABLET (FP) PO SCH (21:36)
[2023-07-21] MEDS: amLODIPine BESYLATE 5 MG TABLET (FP) PO SCH (21:36)
[2023-07-22] MEDS: PANTOPRAZOLE 40 MG TABLET PO SCH (06:55)
[2023-07-22] MEDS: INSULIN ASPART SLIDING SCALE (NOVOLOG) 1 VIAL SQ SCH ×4 (06:56→21:48)
[2023-07-22 08:16] LABS: POTASSIUM 4.4 mmol/L (3.5-5.1)
[2023-07-22 08:18] LABS: CALCIUM 9.2 mg/dL (8.5-10.1)
[2023-07-22 08:19] LABS: ALBUMIN 2.4 g/dl (3.4-5.0); BLOOD UREA NITROGEN 20.4 mg/dL (7-18)
[2023-07-22 08:23] LABS: TOT PROT 5.9 g/dl (6.4-8.2)
[2023-07-22 08:24] LABS: BILIRUBIN,TOTAL 0.4 mg/dL (0.2-1)
[2023-07-22 08:25] LABS: BASO % 0.7 % (0-2.0); HEMATOCRIT 32.4 % (32.4-45.2); HEMOGLOBIN 10.8 GM/dL (10.7-15.3); LYMPH % 37.2 % (8-40); MCH 28.1 pg (25.7-33.7); MCHC 33.2 g/dl (32.0-36.0); MEAN CELL VOLUME 84.8 fl (80-96); MEAN PLT VOLUME 7.8 fl (7.5-11.1); MONO % 14.1 % (3.8-10.2); PLATELET COUNT 264 10^3/uL (134-434); RBC 3.83 M/mm3 (3.60-5.2); RDW 14.9 % (11.6-15.6); WHITE BLOOD COUNT 3.4 K/mm3 (4.0-10.0)
[2023-07-22] MEDS: CEFTRIAXONE 1 GM in DEXTROSE 5%-WATER - 50 ML IVPB SCH (09:01)
[2023-07-22] MEDS: METOPROLOL TARTRATE 25 MG TABLET (FP) PO SCH ×2 (10:23→21:54)
[2023-07-22] MEDS: EMPAGLIFLOZIN (JARDIANCE) 10 MG TABLET PO SCH (10:23)
[2023-07-22] MEDS: MINERAL OIL/PET HY-PHL TOPICAL OINTMENT 454 GM JAR TP SCH (11:48)
[2023-07-22] MEDS: ATORVASTATIN CA 20 MG TABLET (FP) PO SCH (21:54)
[2023-07-22] MEDS: amLODIPine BESYLATE 5 MG TABLET (FP) PO SCH (21:54)
[2023-07-23] MEDS: PANTOPRAZOLE 40 MG TABLET PO SCH (06:49)
[2023-07-23] MEDS: INSULIN ASPART SLIDING SCALE (NOVOLOG) 1 VIAL SQ SCH ×3 (06:54→22:10)
[2023-07-23 08:31] LABS: BASO % 0.7 % (0-2.0); HEMATOCRIT 32.7 % (32.4-45.2); HEMOGLOBIN 10.8 GM/dL (10.7-15.3); LYMPH % 40.8 % (8-40); MCH 28.1 pg (25.7-33.7); MCHC 32.9 g/dl (32.0-36.0); MEAN CELL VOLUME 85.4 fl (80-96); MEAN PLT VOLUME 7.6 fl (7.5-11.1); NEUT % 47.5 % (42.8-82.8); PLATELET COUNT 249 10^3/uL (134-434); RBC 3.83 M/mm3 (3.60-5.2); RDW 14.9 % (11.6-15.6); WHITE BLOOD COUNT 3.5 K/mm3 (4.0-10.0)
[2023-07-23 08:56] LABS: POTASSIUM 4.2 mmol/L (3.5-5.1)
[2023-07-23 08:58] LABS: CALCIUM 9.3 mg/dL (8.5-10.1)
[2023-07-23 08:59] LABS: BLOOD UREA NITROGEN 20.7 mg/dL (7-18)
[2023-07-23 09:02] LABS: CREATININE 0.9 mg/dL (0.55-1.3)
[2023-07-23] MEDS: EMPAGLIFLOZIN (JARDIANCE) 10 MG TABLET PO SCH (10:54)
[2023-07-23] MEDS: METOPROLOL TARTRATE 25 MG TABLET (FP) PO SCH ×2 (10:54→22:09)
[2023-07-23] MEDS: CEFTRIAXONE 1 GM in DEXTROSE 5%-WATER - 50 ML IVPB SCH (10:54)
[2023-07-23] MEDS: MINERAL OIL/PET HY-PHL TOPICAL OINTMENT 454 GM JAR TP SCH (10:56)
[2023-07-23] MEDS ORDERED: INSULIN (NOVOLOG) ASPART 100 UNITS/ML 10ML VIAL ONE (21:51)
[2023-07-23] MEDS: amLODIPine BESYLATE 5 MG TABLET (FP) PO SCH (22:09)
[2023-07-23] MEDS: ATORVASTATIN CA 20 MG TABLET (FP) PO SCH (22:09)
[2023-07-24] MEDS: PANTOPRAZOLE 40 MG TABLET PO SCH (06:13)
[2023-07-24] MEDS: INSULIN ASPART SLIDING SCALE (NOVOLOG) 1 VIAL SQ SCH ×4 (06:43→21:06)
[2023-07-24] MEDS: MINERAL OIL/PET HY-PHL TOPICAL OINTMENT 454 GM JAR TP SCH (11:01)
[2023-07-24] MEDS: METOPROLOL TARTRATE 25 MG TABLET (FP) PO SCH ×2 (11:01→21:06)
[2023-07-24] MEDS: EMPAGLIFLOZIN (JARDIANCE) 10 MG TABLET PO SCH (11:02)
[2023-07-24] MEDS ORDERED: COLLAGENASE CLOSTRIDIUM HIST. 30 GRAMS TUBE TP SCH (11:15)
[2023-07-24] MEDS ORDERED: PROPOFOL 20 ML ONE (12:05)
[2023-07-24] MEDS: AMINO ACIDS/PROTEIN HYDROLYS 30 ML LIQUID.PKT PO SCH ×2 (12:51→17:29)
[2023-07-24] MEDS: amLODIPine BESYLATE 5 MG TABLET (FP) PO SCH (21:06)
[2023-07-24] MEDS: ATORVASTATIN CA 20 MG TABLET (FP) PO SCH (21:06)
[2023-07-25] MEDS: INSULIN ASPART SLIDING SCALE (NOVOLOG) 1 VIAL SQ SCH ×4 (06:28→22:33)
[2023-07-25] MEDS: PANTOPRAZOLE 40 MG TABLET PO SCH (06:28)
[2023-07-25] MEDS ORDERED: INSULIN (NOVOLOG) ASPART 100 UNITS/ML 10ML VIAL ONE (06:38)
[2023-07-25 07:39] LABS: BASO % 0.5 % (0-2.0); LYMPH % 36.1 % (8-40); MCHC 32.4 g/dl (32.0-36.0); MEAN CELL VOLUME 86.3 fl (80-96); MEAN PLT VOLUME 8.1 fl (7.5-11.1); MONO % 8.8 % (3.8-10.2); NEUT % 54.6 % (42.8-82.8); PLATELET COUNT 223 10^3/uL (134-434); RBC 3.94 M/mm3 (3.60-5.2); RDW 14.6 % (11.6-15.6); WHITE BLOOD COUNT 3.8 K/mm3 (4.0-10.0)
[2023-07-25 07:45] LABS: POTASSIUM 4.2 mmol/L (3.5-5.1)
[2023-07-25 08:30] LABS: CALCIUM 9.3 mg/dL (8.5-10.1)
[2023-07-25 08:31] LABS: ALBUMIN 2.4 g/dl (3.4-5.0); BLOOD UREA NITROGEN 31.4 mg/dL (7-18)
[2023-07-25 08:32] LABS: CREATININE 1.1 mg/dL (0.55-1.3)
[2023-07-25 08:36] LABS: BILIRUBIN,TOTAL 0.4 mg/dL (0.2-1)
[2023-07-25] MEDS: MINERAL OIL/PET HY-PHL TOPICAL OINTMENT 454 GM JAR TP SCH (11:28)
[2023-07-25] MEDS: AMINO ACIDS/PROTEIN HYDROLYS 30 ML LIQUID.PKT PO SCH ×3 (11:28→16:43)
[2023-07-25] MEDS: METOPROLOL TARTRATE 25 MG TABLET (FP) PO SCH ×2 (11:30→22:26)
[2023-07-25] MEDS: EMPAGLIFLOZIN (JARDIANCE) 10 MG TABLET PO SCH (12:37)
[2023-07-25] MEDS: AMINO ACIDS 4.25%/D5W 1,000 ML IV SCH (16:42)
[2023-07-25] MEDS: ATORVASTATIN CA 20 MG TABLET (FP) PO SCH (22:26)
[2023-07-26] MEDS: PANTOPRAZOLE 40 MG TABLET PO SCH (07:03)
[2023-07-26] MEDS: INSULIN ASPART SLIDING SCALE (NOVOLOG) 1 VIAL SQ SCH ×4 (07:20→22:26)
[2023-07-26] MEDS: AMINO ACIDS/PROTEIN HYDROLYS 30 ML LIQUID.PKT PO SCH ×3 (10:23→17:47)
[2023-07-26] MEDS: EMPAGLIFLOZIN (JARDIANCE) 10 MG TABLET PO SCH (10:24)
[2023-07-26] MEDS: METOPROLOL TARTRATE 25 MG TABLET (FP) PO SCH ×2 (10:24→22:02)
[2023-07-26] MEDS: MINERAL OIL/PET HY-PHL TOPICAL OINTMENT 454 GM JAR TP SCH (10:26)
[2023-07-26] MEDS: AMINO ACIDS 4.25%/D5W 1,000 ML IV SCH (16:55)
[2023-07-26 22:01] VITALS: BP 114/66; PULSE 96; RESP 18; TEMP 98.6
[2023-07-26] MEDS: ATORVASTATIN CA 20 MG TABLET (FP) PO SCH (22:02)
[2023-07-26] MEDS ORDERED: INSULIN (NOVOLOG) ASPART 100 UNITS/ML 10ML VIAL ONE (22:23)
== END 2023-07-26 23:00 | DRG 291 ==
LOC: JER 10:14 → JERBED 20:26 → OBSVTOIN 20:26 → J4W 07-13 15:53 → J7W 07-16 16:26
PROVIDERS: ADMIT Internal Medicine
DX: I13.0 Hypertensive heart and chronic kidney disease with heart failure and stage 1 through stage 4 chronic kidney disease, or unspecified chronic kidney disease (principal); G92.8 Other toxic encephalopathy; I50.33 Acute on chronic diastolic (congestive) heart failure; I24.89 Other forms of acute ischemic heart disease; N17.9 Acute kidney failure, unspecified; N39.0 Urinary tract infection, site not specified; I31.39 Other pericardial effusion (noninflammatory); I11.0 Hypertensive heart disease with heart failure; F02.80 Dementia in other diseases classified elsewhere, unspecified severity, without behavioral disturbance, psychotic disturbance, mood disturbance, and anxiety; E11.51 Type 2 diabetes mellitus with diabetic peripheral angiopathy without gangrene; G31.83 Neurocognitive disorder with Lewy bodies; D50.9 Iron deficiency anemia, unspecified; E78.5 Hyperlipidemia, unspecified; K21.9 Gastro-esophageal reflux disease without esophagitis; I25.10 Atherosclerotic heart disease of native coronary artery without angina pectoris; G20.A1 Parkinson's disease without dyskinesia, without mention of fluctuations; B96.20 Unspecified Escherichia coli [E. coli] as the cause of diseases classified elsewhere; Z95.5 Presence of coronary angioplasty implant and graft; N18.9 Chronic kidney disease, unspecified; R31.9 Hematuria, unspecified
CPT/HCPCS: 0241U-QW; 36415; 70450-TC; 71045-TC-FY; 76856-TC; 80048; 80053; 81003; 82962; 83036; 83735; 83880; 84100; 84484; 85025; 85027; 87086; 87186; 87651; 90686; 93005; 93010; 93306-TC; 97116-GP; 97162-GP; 99285-25; G0008

== ENCOUNTER 2023-11-04 21:17 | Inpatient (IN) | payer OTHER ==
[2023-11-04 22:29] LABS: EPI CELLS 3 /uL (0-25.1); HYALINE CASTS 0 /uL (0-3.1); URINE APPEARANCE CLEAR; URINE BACTERIA 937 /uL (0-1359); URINE BILIRUBIN 1+ (NEGATIVE); URINE COLOR DK YELLOW; URINE GLUCOSE (UA) NEGATIVE (NEGATIVE); URINE KETONE NEGATIVE (NEGATIVE); URINE LEUK ESTERASE TRACE (NEGATIVE); URINE NITRITE NEGATIVE (NEGATIVE); URINE PROTEIN 1+ (NEGATIVE); URINE RBC 9 /uL (0-23.9); URINE WBC 9 /uL (0-25.8)
[2023-11-04 22:55] LABS: INR 1.48 (0.83-1.09); PROTHROMBIN TIME (PATIENT) 17.1 SEC (9.7-13.0)
[2023-11-04 22:58] LABS: ACTIVATED PTT 78.3 SECONDS (25.2-36.5)
[2023-11-04 22:59] LABS: BASO % 0.2 % (0-2.0); EOS % 0.2 % (0-4.5); HEMATOCRIT 38.9 % (32.4-45.2); HEMOGLOBIN 11.8 GM/dL (10.7-15.3); LYMPH % 9.5 % (8-40); MCH 26.6 pg (25.7-33.7); MCHC 30.4 g/dl (32.0-36.0); MEAN CELL VOLUME 87.5 fl (80-96); MONO % 2.2 % (3.8-10.2); NEUT % 87.9 % (42.8-82.8); PLATELET COUNT 46 10^3/uL (134-434); RBC 4.44 M/mm3 (3.60-5.2); WHITE BLOOD COUNT 5.7 K/mm3 (4.0-10.0)
[2023-11-04 23:31] LABS: ALBUMIN 2.4 g/dl (3.4-5.0); BLOOD UREA NITROGEN 42.1 mg/dL (7-18); CALCIUM 9.6 mg/dL (8.5-10.1); CREATININE 1.4 mg/dL (0.55-1.3); MAGNESIUM 2.7 mg/dL (1.8-2.4); N-TERMINAL BNP 9160.3 pg/ml (5-450); PHOSPHOROUS 3.6 mg/dL (2.5-4.9); POTASSIUM 4.4 mmol/L (3.5-5.1); TOT PROT 5.8 g/dl (6.4-8.2)
[2023-11-04 23:36] LABS: MEAN PLT VOLUME 11.6 fl (7.5-11.1)
[2023-11-04] MEDS ORDERED: FUROSEMIDE 40 MG/4 ML INJECTABLE VIAL ONE (23:48)
[2023-11-04] MEDS: FUROSEMIDE 40 MG/4 ML INJECTABLE VIAL IVPUSH ONE (23:48)
[2023-11-04 23:49] LABS: ANISOCYTOSIS 2+; MACROCYTOSIS 1+; OVALOCYTE 1+; TARGET CELLS 1+
[2023-11-04 23:54] LABS: PLATELET ESTIMATE DECREASED
[2023-11-05 07:20] LABS: HEMATOCRIT 37.2 % (32.4-45.2); HEMOGLOBIN 11.3 GM/dL (10.7-15.3); LYMPH % 8.5 % (8-40); MCH 26.6 pg (25.7-33.7); MCHC 30.3 g/dl (32.0-36.0); MEAN CELL VOLUME 87.6 fl (80-96); MONO % 3.6 % (3.8-10.2); NEUT % 87.9 % (42.8-82.8); PLATELET COUNT 45 10^3/uL (134-434); RBC 4.24 M/mm3 (3.60-5.2); RDW 21.5 % (11.6-15.6); WHITE BLOOD COUNT 7.3 K/mm3 (4.0-10.0)
[2023-11-05 09:07] LABS: CALCIUM 9.7 mg/dL (8.5-10.1); CREATININE 1.4 mg/dL (0.55-1.3); POTASSIUM 4.4 mmol/L (3.5-5.1); TOT PROT 5.8 g/dl (6.4-8.2)
[2023-11-05 09:08] LABS: ALBUMIN 2.4 g/dl (3.4-5.0)
[2023-11-05] MEDS: FUROSEMIDE 40 MG/4 ML INJECTABLE VIAL IVPUSH SCH (09:19)
[2023-11-05 09:33] LABS: BLOOD UREA NITROGEN 45.8 mg/dL (7-18); MAGNESIUM 2.8 mg/dL (1.8-2.4)
[2023-11-05] MEDS: AMINO ACIDS 4.25%/D5W 1,000 ML IV SCH (17:42)
[2023-11-06 09:48] LABS: ALBUMIN 2.2 g/dl (3.4-5.0); BILIRUBIN,TOTAL 1.5 mg/dL (0.2-1); BLOOD UREA NITROGEN 48.3 mg/dL (7-18); CALCIUM 9.7 mg/dL (8.5-10.1); CREATININE 1.7 mg/dL (0.55-1.3); POTASSIUM 4.4 mmol/L (3.5-5.1); TOT PROT 5.4 g/dl (6.4-8.2)
[2023-11-06 10:04] LABS: HEMATOCRIT 37.1 % (32.4-45.2); HEMOGLOBIN 11.5 GM/dL (10.7-15.3); MCH 26.9 pg (25.7-33.7); MEAN CELL VOLUME 86.9 fl (80-96); RBC 4.27 M/mm3 (3.60-5.2); WHITE BLOOD COUNT 8.8 K/mm3 (4.0-10.0)
[2023-11-06 11:01] LABS: ANISOCYTOSIS 2+; MACROCYTOSIS 0
[2023-11-06] MEDS: SCOPOLAMINE HYDROBROMIDE 1 PATCH PATCH.TD72 TD SCH (11:36)
[2023-11-06] MEDS: CEFTRIAXONE 1 GM in DEXTROSE 5%-WATER - 50 ML IVPB SCH (17:35)
[2023-11-07 23:12] VITALS: BMI 19.7
[2023-11-08 13:57] LABS: POTASSIUM 3.4 mmol/L (3.5-5.1)
[2023-11-08 14:01] LABS: CALCIUM 9.3 mg/dL (8.5-10.1)
[2023-11-08 14:03] LABS: BLOOD UREA NITROGEN 54.6 mg/dL (7-18)
[2023-11-08 14:04] LABS: CREATININE 1.5 mg/dL (0.55-1.3)
[2023-11-08] MEDS: KCL 10 MEQ IVPB 10 MEQ/100 ML INFUS.BAG IVPB SCH (15:15)
[2023-11-08] MEDS ORDERED: DEXTROSE 50%-WATER 25 GM/50 ML DISP.SYRIN ONE (21:28)
[2023-11-08] MEDS: DEXTROSE 50%-WATER 25 GM/50 ML DISP.SYRIN IVPUSH ONE (21:57)
[2023-11-09] MEDS: KCL 10 MEQ IVPB 10 MEQ/100 ML INFUS.BAG IVPB SCH (16:45)
[2023-11-11] MEDS: AMINO ACIDS 4.25%/D5W 1,000 ML IV SCH (15:14)
[2023-11-12] MEDS: ACETAMINOPHEN 1000 MG/100 ML BAG IVPB PRN (11:35)
[2023-11-16] MEDS: MORPHINE SULFATE/0.9% NACL/PF 100 MG/100 ML BAG IVPB SCH (10:59)
[2023-11-16] MEDS ORDERED: LISINOPRIL 5 MG TABLET PO SCH (15:15)
[2023-11-17] MEDS: MORPHINE SULFATE/0.9% NACL/PF 100 MG/100 ML BAG IVPB SCH (12:24)
[2023-11-17 16:37] VITALS: BP 62/36; TEMP 96.8
[2023-11-17 16:47] VITALS: PULSE 0; RESP 0
== END 2023-11-17 19:17 | disposition expired | DRG 291 ==
LOC: JER 21:17 → JERBED 23:46 → J4W 11-05 07:19
PROVIDERS: ADMIT Internal Medicine; ATTEND Family Medicine
DX: I13.0 Hypertensive heart and chronic kidney disease with heart failure and stage 1 through stage 4 chronic kidney disease, or unspecified chronic kidney disease (principal); G93.41 Metabolic encephalopathy; I50.33 Acute on chronic diastolic (congestive) heart failure; J96.00 Acute respiratory failure, unspecified whether with hypoxia or hypercapnia; E87.0 Hyperosmolality and hypernatremia; J98.11 Atelectasis; N17.9 Acute kidney failure, unspecified; Z68.1 Body mass index [BMI] 19.9 or less, adult; R64 Cachexia; I25.10 Atherosclerotic heart disease of native coronary artery without angina pectoris; E78.5 Hyperlipidemia, unspecified; G20.A1 Parkinson's disease without dyskinesia, without mention of fluctuations; F02.80 Dementia in other diseases classified elsewhere, unspecified severity, without behavioral disturbance, psychotic disturbance, mood disturbance, and anxiety; N18.9 Chronic kidney disease, unspecified; E11.22 Type 2 diabetes mellitus with diabetic chronic kidney disease; D64.9 Anemia, unspecified; D69.6 Thrombocytopenia, unspecified; I73.9 Peripheral vascular disease, unspecified; K57.90 Diverticulosis of intestine, part unspecified, without perforation or abscess without bleeding; E87.6 Hypokalemia; R33.9 Retention of urine, unspecified; J01.90 Acute sinusitis, unspecified; R62.7 Adult failure to thrive; L89.322 Pressure ulcer of left buttock, stage 2; L89.312 Pressure ulcer of right buttock, stage 2; R68.0 Hypothermia, not associated with low environmental temperature; Z95.5 Presence of coronary angioplasty implant and graft; I46.9 Cardiac arrest, cause unspecified
CPT/HCPCS: 0241U-QW; 36415; 70450-TC; 71045-TC-FY; 76775-TC; 80048; 80053; 81003; 82140; 82784; 82962; 83010; 83615; 83735; 83880; 84100; 84155; 84165; 84439; 84443; 84484; 85025; 85032; 85610; 85730; 86022; 87040; 87086; 93005; 93010; 93306-TC; 99285-25; J0131